=== PATIENT | male | born 1945 | race Caucasian/White ===

== ENCOUNTER 2016-04-07 21:30 | Outpatient (CLI) | payer MEDICARE | END 2016-04-07 21:31 | disposition home or self-care (01) | DX: I48.91 Unspecified atrial fibrillation (principal); E11.9 Type 2 diabetes mellitus without complications; R53.83 Other fatigue; E66.01 Morbid (severe) obesity due to excess calories ==

== ENCOUNTER 2016-05-10 13:15 | Outpatient (CLI) | payer MEDICARE | END 2016-05-10 13:16 | disposition home or self-care (01) | DX: I51.7 Cardiomegaly (principal); R09.89 Other specified symptoms and signs involving the circulatory and respiratory systems; Z95.0 Presence of cardiac pacemaker ==

== ENCOUNTER 2016-05-12 12:52 | Emergency (ER) | payer MEDICARE ==
[2016-05-12] MEDS ORDERED: FUROSEMIDE 100 MG/10 ML VIAL IVP STA (13:40)
[2016-05-12] MEDS ORDERED: NITROGLYCERIN 2% PASTE TOP STA (13:40)
[2016-05-12] MEDS ORDERED: FUROSEMIDE 40 MG/4 ML VIAL ONE (13:46)
[2016-05-12] MEDS ORDERED: NITROGLYCERIN 2% PASTE TOP ONE ×2 (13:46→14:08)
[2016-05-12] MEDS ORDERED: AZITHROMYCIN 250 MG TABLET PO STA (17:19)
[2016-05-12] MEDS ORDERED: AZITHROMYCIN 250 MG TABLET PO ONE (17:22)
== END 2016-05-12 17:54 | disposition home or self-care (01) ==
DX: I50.43 Acute on chronic combined systolic (congestive) and diastolic (congestive) heart failure (principal); J18.9 Pneumonia, unspecified organism; I48.91 Unspecified atrial fibrillation; Z79.01 Long term (current) use of anticoagulants; E11.9 Type 2 diabetes mellitus without complications; Z87.891 Personal history of nicotine dependence
CPT/HCPCS: 36415; 71010; 80053; 83690; 83880; 84484; 85025; 85610; 93005; 93010; 96374; 99284; 99285; A9270

== ENCOUNTER 2016-05-14 12:55 | Outpatient (CLI) | payer MEDICARE | END 2016-05-14 12:56 | disposition home or self-care (01) | DX: I48.91 Unspecified atrial fibrillation (principal) ==

== ENCOUNTER 2016-06-04 06:29 | Outpatient (CLI) | payer MEDICARE | END 2016-06-04 06:30 | disposition short-term general hospital (02) | DX: M54.9 Dorsalgia, unspecified (principal); R41.0 Disorientation, unspecified | CPT/HCPCS: A0425; A0427 ==

== ENCOUNTER 2016-12-15 20:38 | Emergency (ER) | payer MEDICARE ==
[2016-12-15 20:46] VITALS: BP 138/86
[2016-12-15] MEDS ORDERED: DEXAMETHASONE 10 MG/ML VIAL ONE (22:29)
[2016-12-15] MEDS ORDERED: CYCLOBENZAPRINE 10 MG TABLET PO ONE (22:29)
[2016-12-15] MEDS: CYCLOBENZAPRINE 10 MG TABLET PO STA (22:35)
[2016-12-15] MEDS: DEXAMETHASONE 10 MG/ML VIAL PO STA (22:36)
--- NOTE | 2016-12-15 23:02 | CT Preliminary Report ---
Exam: CT Abdomen/Pelvis W/O IMPRESSION: 1. No urinary tract stones or obstruction. 2. Fatty liver. 3. Diverticulosis. [facility] SITE ID: [id number]
--- NOTE | 2016-12-15 23:04 | CT Report ---
EXAM: CT ABDOMEN AND PELVIS (CT KUB) EXAM DATE: 12/15/2016 10:37 PM. CLINICAL HISTORY: Right flank pain. COMPARISONS: None. TECHNIQUE: Routine axial helical CT imaging was performed through the abdomen and pelvis without IV c ontrast. Reconstructions: Coronal and sagittal. In accordance with CT protocol optimization, one or more of the following dose reduction techniques w ere utilized for this exam: automated exposure control, adjustment of mA and/or KV based on patient s ize, or use of iterative reconstructive technique. FINDINGS: Lung Bases: Unremarkable. Right Kidney/Ureter: No stones, hydronephrosis, or hydroureter. No perinephric fat stranding. Left Kidney/Ureter: No stones, hydronephrosis, or hydroureter. No perinephric fat stranding. Other Solid Organs: Decreased liver attenuation. No obvious focal lesions allowing for limitations of noncontrast technique. The unenhanced pancreas, spleen and adrenal glands are unremarkable. Gallbladder/Bile Ducts: Unremarkable. Peritoneal Cavity: Diverticulosis. No diverticulitis. No bowel obstruction, free air or fluid collect ions. Pelvic Organs: Enlarged prostate gland. No bladder stones seen. Vasculature: Unremarkable. Other: None. IMPRESSION: 1. No urinary tract stones or obstruction. 2. Fatty liver. 3. Diverticulosis. [facility] Referring Provider Line: [phone] SITE ID: [id number]
[2016-12-15 23:05] LABS: BASOPHILS # (AUTO) 0.3 10^3/uL (0.0-0.1); BASOPHILS % (AUTO) 2.1 %; EOSINOPHILS # (AUTO) 0.2 10^3/uL (0.0-0.7); EOSINOPHILS % (AUTO) 1.7 %; HCT - HEMATOCRIT 44.3 % (42.0-52.0); HGB - HEMOGLOBIN 14.7 g/dL (14.0-18.0); LYMPHOCYTES # (AUTO) 2.7 10^3/uL (1.5-3.5); LYMPHOCYTES % (AUTO) 21.5 %; MEAN CORPUSCULAR HEMOGLOBIN 28.6 pg (27.0-31.0); MEAN CORPUSCULAR HGB CONC 33.2 g/dL (32.0-36.0); MEAN PLATELET VOLUME 9.9 fL (7.4-11.4); MONOCYTES # (AUTO) 1.2 10^3/uL (0.0-1.0); MONOCYTES % (AUTO) 9.8 %; NEUTROPHILS # (AUTO) 8.1 10^3/uL (1.5-6.6); NEUTROPHILS % (AUTO) 64.9 %; NUCLEATED RED BLOOD CELLS AUTO 0.1 /100WBC; RED BLOOD COUNT 5.15 10^6/uL (4.70-6.10); RED CELL DISTRIBUTION WIDTH 15.5 % (12.0-15.0); UNCORRECTED WHITE BLOOD COUNT 12.5 x10^3/uL; WHITE BLOOD COUNT 12.5 x10^3/uL (4.8-10.8)
[2016-12-15 23:05] LABS: BILIRUBIN,URINE NEGATIVE (NEGATIVE)
[2016-12-15 23:07] LABS: ALBUMIN/GLOBULIN RATIO 1.1 (1.0-2.2); BILIRUBIN,TOTAL 0.9 mg/dL (0.2-1.0); CALCIUM 9.6 mg/dL (8.5-10.3); POTASSIUM 3.7 mmol/L (3.5-5.0); TOTAL PROTEIN 7.6 g/dL (6.7-8.2)
[2016-12-15 23:07] LABS: UA CHARGE (STRIP ONLY) YES; UR CULTURE IF IND NOT INDICATED
--- NOTE | 2016-12-15 23:41 | ED Physician Documentation ---
PD HPI BACK PAIN - Stated complaint Stated Complaint: BACK PX - Chief complaint Chief Complaint: Back Pain - History obtained from History obtained from: Patient, Family - History of Present Illness Timing - onset: Chronic Timing - details: Gradual onset, Still present Location: Mid, Right Quality: Pain, Spasm Associated symptoms: No: Fever, Weakness, Numbness, Incontinent of urine, Unable to urinate Worsened by: Movement, Palpation Similar symptoms before: Work up / diagnostics, Treatment Recently seen: Clinic - Additional information Additional information: Patient is a 71 year old male with a history of chronic back pain and uncontrolled diabetes who is presenting to the emergency department for worsening back pain. Patient states that he has been developing pain in the right lateral side of his back for the last few days. 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 Patient saw his pmd today who stated there was nothing they could do. Patient denies nausea, vomiting, fevers, chills or neurological dysfunction. Review of Systems Constitutional: denies: Fever, Chills, Myalgias Eyes: denies: Decreased vision Ears: denies: Ear pain, Drainage/discharge Nose: denies: Rhinorrhea / runny nose, Congestion Throat: denies: Sore throat Cardiac: denies: Chest pain / pressure Respiratory: denies: Dyspnea, Cough, Wheezing GI: denies: Abdominal Pain, Nausea, Vomiting : denies: Dysuria, Frequency, Unable to Void, Incontinent, Hematuria Skin: denies: Rash, Lesions, Abrasion (s) Musculoskeletal: reports: Back pain, Extremity pain Neurologic: denies: Generalized weakness, Focal weakness, Numbness Immunocompromised: denies: Immunocompromised PD PAST MEDICAL HISTORY - Past Medical History Cardiovascular: Congestive heart failure, High cholesterol, Atrial flutter, Atrial fibrillation Respiratory: COPD, Pneumonia, Sleep apnea Neuro: Peripheral neuropathy Endocrine/Autoimmune: Type 2 diabetes GI: GERD : Benign prostate hypertrophy Musculoskeletal: Chronic back pain, Other Derm: Other - Past Surgical History Past Surgical History: Yes Ortho: Knee replacement Cardiovascular: Pacemaker - Present Medications Home Medications: Ambulatory Orders Medication Instructions Recorded Confirmed Alprazolam [Xanax] 1 mg PO QPM PRN 05/29/14 10/25/16 Fluticasone [Flonase] 2 sprays SANTHOSH DAILY 05/29/14 10/25/16 Fluticasone/Salmeterol [Advair 1 puffs IH BID 05/29/14 10/25/16 250-50 Diskus] Furosemide [Lasix] 40 mg PO ONCE 05/29/14 10/25/16 Ipratropium/Albuterol [Duoneb] 3 ml INH Q4H PRN 05/29/14 10/25/16 Pantoprazole Sodium [Protonix] 40 mg PO DAILY PM 05/29/14 10/25/16 Polyethylene Glycol 3350 [Miralax] 17 gm PO DAILY PRN 05/29/14 10/25/16 Potassium Chloride [K-Dur] 20 meq PO ONCE 05/29/14 10/25/16 Pramipexole Di-HCl [Mirapex] 1.5 mg PO DAILY 05/29/14 10/25/16 Tamsulosin [Flomax] 0.4 mg PO DAILY 06/22/14 10/25/16 Hydroxyzine Pamoate 50 mg PO DAILY 05/12/16 10/25/16 Morphine Sulfate [Morphine Sulfate 30 mg PO BID 05/12/16 10/25/16 ER] Triamcinolone 0.1% Cream [Kenalog 15 gm TOP DAILY 05/12/16 10/25/16 0.1% Cream] Albuterol Sulf [Ventolin Hfa 2 puffs INH Q4HR PRN 10/25/16 10/25/16 Inhaler] Baclofen 10 mg PO TID PRN 10/25/16 10/25/16 Canagliflozin [Invokana] 300 mg PO DAILY 10/25/16 10/25/16 Cetirizine [ZyrTEC] 10 mg PO DAILY 10/25/16 10/25/16 Docusate Sodium [Docusate Sodium] 100 mg PO DAILY 10/25/16 10/25/16 Famotidine [Pepcid AC] 20 mg PO DAILY 10/25/16 10/25/16 Furosemide [Lasix] 80 mg PO ONCE 10/25/16 10/25/16 Losartan [Cozaar] 25 mg PO DAILY 10/25/16 10/25/16 Morphine Sulfate [Morphine Sulfate 20 mg PO DAILY 10/25/16 10/25/16 ER] Multivitamin W/Minerals [Theragran 1 cap PO BID 10/25/16 10/25/16 M] Oxymetazoline HCl [Afrin] 1 spray NS DAILY 10/25/16 10/25/16 Potassium Chloride 40 meq PO ONCE 10/25/16 10/25/16 Rivaroxaban [Xarelto] 20 mg PO DAILY 10/25/16 10/25/16 Tolterodine [Detrol LA] 2 mg PO DAILY 10/25/16 10/25/16 metFORMIN [Glucophage] 1,000 mg PO BIDWM 10/25/16 10/25/16 Cyclobenzaprine [Flexeril] 10 mg PO TID PRN #10 tablet 12/15/16 Lidocaine Patch 5% [Lidoderm Patch] 1 each TOP DAILY #10 patch 12/15/16 - Allergies Allergies/Adverse Reactions: Allergies Allergy/AdvReac Type Severity Reaction Status Date / Time Penicillins Allergy Intermediate Hives,itchi Verified 06/24/14 12:19 ng amiodarone Allergy Respiratory Verified 06/22/14 04:36 rofecoxib [From Vioxx] Allergy Unknown Verified 06/22/14 04:36 cephalexin monohydrate * AdvReac Intermediate Itching Verified 06/24/14 12:19 [From Keflex] animal dander Allergy Unknown Uncoded 06/22/14 04:36 pollen Allergy Unknown Uncoded 06/22/14 04:36 - Social History Does the pt smoke?: No Smoking Status: Never smoker Does the pt drink ETOH?: No Does the pt have substance abuse?: No - Immunizations Immunizations are current?: Yes - POLST Patient has POLST: No PD ED PE NORMAL - Vitals Vital signs reviewed: Yes - General General: Alert and oriented X 3, No acute distress - HEENT HEENT: Atraumatic, PERRL - Neck Neck: Supple, no meningeal sign, No bony TTP - Cardiac Cardiac: RRR, No murmur - Respiratory Respiratory: No respiratory distress, Clear bilaterally - Derm Derm: Normal color, No rash - Extremities Extremities: No deformity, No tenderness to palpate, Normal ROM s pain - Neuro Neuro: Alert and oriented X 3, 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 No: Vertebral tenderness Results - Vitals Vitals: Vital Signs - 24 hr 12/15/16 20:44 Temperature 36.0 C L Heart Rate 88 Respiratory 20 Rate Blood Pressure 138/86 H O2 Saturation 96 Oxygen O2 Source [With Activity] Room air O2 Source Room air - Labs Labs: Laboratory Tests 12/15/16 12/15/16 12/15/16 22:00 22:44 22:44 WBC 12.5 H RBC 5.15 Hgb 14.7 Hct 44.3 MCV 86.0 MCH 28.6 MCHC 33.2 RDW 15.5 H Plt Count 152 MPV 9.9 Neut # 8.1 H Lymph # 2.7 [place] # 1.2 H Eos # 0.2 Baso # 0.3 H Absolute Nucleated RBC 0.01 Nucleated RBC % 0.1 Sodium 137 Potassium 3.7 Chloride 97 L Carbon Dioxide 28 Anion Gap 12.0 BUN 25 H Creatinine 1.0 Estimated GFR (MDRD) 74 L Glucose 101 H Calcium 9.6 Total Bilirubin 0.9 AST 32 ALT 48 Alkaline Phosphatase 70 Total Protein 7.6 Albumin 4.0 Globulin 3.6 Albumin/Globulin Ratio 1.1 Lipase 16 L Urine Color YELLOW Urine Clarity CLEAR Urine pH 6.0 Ur Specific [place] 1.015 Urine Protein NEGATIVE Urine Glucose (UA) >=1000 H Urine Ketones NEGATIVE Urine Occult Blood TRACE-LYSE Urine Nitrite NEGATIVE Urine Bilirubin NEGATIVE Urine Urobilinogen 0.2 (NORMAL) Ur Leukocyte Esterase NEGATIVE Ur Microscopic Review NOT INDICATED Urine Culture Comments NOT INDICATED - Rads (name of study) ct abdomen and pelvis Radiology: Final report received (no renal stones, or other acute abnormality) PD MEDICAL DECISION MAKING - ED course Complexity details: reviewed old records, reviewed results, re-evaluated patient , considered differential, d/w patient, d/w family ED course: Patient was seen and examined at bedside. patient showed no signs of neurological deficit. labs were collected and imaging was ordered. urine was collected. Patient was treated with a lidoderm patch and a flexeril. patient took his own pain medication. when patient's diagnostics came back they were all within normal limits. patient required no further work up and was stable for discharge with outpatient follow up. Departure - Departure Disposition: 01 Home, Self Care Clinical Impression: Back pain, Muscle spasm of back Condition: Good Instructions: ED Chronic Pain Management Follow-Up: Ajay Valles MD [Primary Care Provider] - Within 1 week Prescriptions: Cyclobenzaprine [Flexeril] 10 mg PO TID PRN #10 tablet PRN Reason: Spasms Lidocaine Patch 5% [Lidoderm Patch] 1 each TOP DAILY #10 patch Comments: Your diagnostics today were within normal limits. there is no sign of infection or renal stone. your pain is likely due to muscle spasms from immobility. You can use the lidoderm patches, but if you develop a rash you should discontinue use. you can continue with your current pain management and take flexeril for spams. you should follow up with your pmd if your symptoms persist. you may return to the emergency department at any time if needed for new, worsening or uncontrollable symptoms.
[2016-12-16] MEDS ORDERED: LIDOCAINE PATCH 5% TOP ONE (00:51)
== END 2016-12-16 00:24 | disposition home or self-care (01) ==
LOC: ED 20:38
DX: M54.9 Dorsalgia, unspecified (principal); M62.830 Muscle spasm of back; E11.42 Type 2 diabetes mellitus with diabetic polyneuropathy; I50.9 Heart failure, unspecified; E78.00 Pure hypercholesterolemia, unspecified; Z95.0 Presence of cardiac pacemaker; Z96.659 Presence of unspecified artificial knee joint
CPT/HCPCS: 36415; 74176; 80053; 81001; 81003; 83690; 85025; 87086; 99283

== ENCOUNTER 2017-09-14 19:50 | Emergency (ER) | payer MEDICARE ==
--- NOTE | 2017-09-14 20:16 | ED Physician Documentation ---
PD HPI ALTERED MENTAL STATUS - Stated complaint Stated Complaint: AMS/GLF - Chief complaint Chief Complaint: Neuro - History obtained from History obtained from: Patient, Family - History of Present Illness Timing - onset: Yesterday Timing - details: Gradual onset Quality / character: Confused Associated symptoms: Urinary sx (intermittent urinary incontinence (past few weeks)). No: Fever, Dyspnea, Cough, NVD, General weakness, Focal weakness Contributing factors: Anticoagulated Basline status: Alert and oriented X 3, Ambulatory Similar symptoms before: Other (see below) Recently seen: Not recently seen - Additional information Additional information: patient's spouse has noted increasing confusion x 24 hours. She notes that he had similar confusion a few years ago as a result of sepsis, which was a complication of leg cellulitis. Patient is anticoagulated. Spouse reports that patient fell this morning, although no apparent injury and patient's symptoms were already present before he fell. Patient is somnolent on exam, awakens to voice but briefly and cannot contribute to HPI/ROS due to AMS. Review of Systems Unable to obtain: Other (limited ROS due to AMS ( provides information noted below)) Constitutional: denies: Fever Respiratory: denies: Dyspnea, Cough GI: denies: Vomiting, Diarrhea : reports: Incontinent Neurologic: reports: Altered mental status PD PAST MEDICAL HISTORY - Past Medical History Cardiovascular: Congestive heart failure, High cholesterol, Atrial flutter, Atrial fibrillation Respiratory: COPD, Pneumonia, Sleep apnea Endocrine/Autoimmune: Type 2 diabetes GI: GERD : Benign prostate hypertrophy Musculoskeletal: Chronic back pain, Other Derm: Other - Past Surgical History Past Surgical History: Yes Ortho: Knee replacement Cardiovascular: Pacemaker - Present Medications Home Medications: Ambulatory Orders Medication Instructions Recorded Confirmed Fluticasone [Flonase] 2 sprays SANTHOSH DAILY 05/29/14 09/14/17 Fluticasone/Salmeterol [Advair 1 puffs IH BID 05/29/14 09/14/17 250-50 Diskus] Furosemide [Lasix] 40 mg PO ONCE 05/29/14 09/14/17 Ipratropium/Albuterol [Duoneb] 3 ml INH Q4H PRN 05/29/14 09/14/17 Pantoprazole Sodium [Protonix] 40 mg PO DAILY PM 05/29/14 09/14/17 Potassium Chloride [K-Dur] 20 meq PO DAILY 05/29/14 09/14/17 Pramipexole Di-HCl [Mirapex] 1.5 mg PO DAILY 05/29/14 09/14/17 Tamsulosin [Flomax] 0.4 mg PO DAILY 06/22/14 09/14/17 Morphine Sulfate [Morphine Sulfate 30 mg PO TID 05/12/16 09/14/17 ER] Triamcinolone 0.1% Cream [Kenalog 15 gm TOP DAILY 05/12/16 09/14/17 0.1% Cream] hydrOXYzine pamoate [Hydroxyzine 50 mg PO DAILY 05/12/16 09/14/17 Pamoate] Albuterol Sulf [Ventolin Hfa 2 puffs INH Q4HR PRN 10/25/16 09/14/17 Inhaler] Losartan [Cozaar] 25 mg PO DAILY 10/25/16 09/14/17 Oxymetazoline HCl [Afrin] 1 spray NS DAILY 10/25/16 09/14/17 Rivaroxaban [Xarelto] 20 mg PO DAILY 10/25/16 09/14/17 Tolterodine [Detrol LA] 4 mg PO DAILY 10/25/16 09/14/17 metFORMIN [Glucophage] 1,000 mg PO BIDWM 10/25/16 09/14/17 Cyclobenzaprine [Flexeril] 5 mg PO TID PRN 07/22/17 09/14/17 Polyethylene Glycol 3350 [Miralax] 5.6 g PO DAILY 09/14/17 09/14/17 Pravastatin [Pravachol] 1 tab PO DAILY 09/14/17 09/14/17 - Allergies Allergies/Adverse Reactions: Allergies Allergy/AdvReac Type Severity Reaction Status Date / Time Penicillins Allergy Intermediate Hives,itchi Verified 09/14/17 20:00 ng amiodarone Allergy Respiratory Verified 09/14/17 20:00 rofecoxib [From Vioxx] Allergy Unknown Verified 09/14/17 20:00 cephalexin monohydrate * AdvReac Intermediate Itching Verified 09/14/17 20:00 [From Keflex] animal dander Allergy Unknown Uncoded 09/14/17 20:00 pollen Allergy Unknown Uncoded 09/14/17 20:00 - Social History Does the pt smoke?: No Smoking Status: Never smoker Does the pt drink ETOH?: No Does the pt have substance abuse?: No - Immunizations Immunizations are current?: Yes - POLST Patient has POLST: No PD ED PE NORMAL - Vitals Vital signs reviewed: Yes - General General: No acute distress, Well developed/nourished, Other (drowsy, arousable to voice, provides some answers to questions but falls asleep easily. follows commands with repeated prompting) - HEENT HEENT: PERRL, EOMI, Moist mucous membranes - Neck Neck: Supple, no meningeal sign - Cardiac Cardiac: No murmur - Respiratory Respiratory: No respiratory distress, Clear bilaterally - Abdomen Abdomen: Soft, Non tender, Non distended - Derm Derm: Normal color, Warm and dry, No rash - Extremities Extremities: No edema - Neuro Eye Opening: To Voice Motor: Obeys Commands Verbal: Confused GCS Score: 13 PD ED PE EXPANDED - Cardiac Cardiac: Irregularly irregular Results - Vitals Vitals: Oxygen O2 Source [] Room air O2 Source Room air - EKG (time done) No standard instances Rate: Rate (enter#) (76) Rhythm: Atrial fibrillation [place]: LAD Intervals: LBBB Ischemia: Normal ST segments, Q waves (III, aVF, V1-V3) Compare to prior EKG: Unchanged from prior EKG (05/12/16) - Labs Labs: Laboratory Tests 09/14/17 09/14/17 09/14/17 20:10 20:10 20:12 WBC RBC Hgb Hct MCV MCH MCHC RDW Plt Count MPV Neut # (Auto) Lymph # (Auto) [place] # (Auto) Eos # (Auto) Baso # (Auto) Absolute Nucleated RBC Nucleated RBC % Sodium Potassium Chloride Carbon Dioxide Anion Gap BUN Creatinine Estimated GFR (MDRD) Glucose POC Whole Bld Glucose 115 H Lactic Acid Calcium Total Bilirubin AST ALT Alkaline Phosphatase B-Natriuretic Peptide Total Protein Albumin Globulin Albumin/Globulin Ratio Lipase Urine Color YELLOW Urine Clarity CLEAR Urine pH 6.0 Ur Specific [place] 1.010 Urine Protein NEGATIVE Urine Glucose (UA) NEGATIVE Urine Ketones NEGATIVE Urine Occult Blood NEGATIVE Urine Nitrite NEGATIVE Urine Bilirubin NEGATIVE Urine Urobilinogen 0.2 (NORMAL) Ur Leukocyte Esterase NEGATIVE Ur Microscopic Review NOT INDICATED Urine Culture Comments NOT INDICATED Urine Opiates Screen POSITIVE H Ur Oxycodone Screen POSITIVE H Urine Methadone Screen NEGATIVE Ur Propoxyphene Screen NEGATIVE Ur Barbiturates Screen NEGATIVE Ur Tricyclics Screen POSITIVE H Ur Phencyclidine Scrn NEGATIVE Ur Amphetamine Screen NEGATIVE U Methamphetamines Scrn NEGATIVE U Benzodiazepines Scrn POSITIVE H Urine Cocaine Screen NEGATIVE U Cannabinoids Screen NEGATIVE 09/14/17 09/14/17 09/14/17 20:20 20:20 20:20 WBC 12.4 H RBC 4.85 Hgb 13.9 L Hct 42.2 MCV 87.0 MCH 28.6 MCHC 32.9 RDW 15.2 H Plt Count 159 MPV 9.3 Neut # (Auto) 9.4 H Lymph # (Auto) 1.5 [place] # (Auto) 1.0 Eos # (Auto) 0.3 Baso # (Auto) 0.1 Absolute Nucleated RBC 0.01 Nucleated RBC % 0.1 Sodium 137 Potassium 4.3 Chloride 100 L Carbon Dioxide 31 Anion Gap 6.0 BUN 22 H Creatinine 0.9 Estimated GFR (MDRD) 83 L Glucose 131 H POC Whole Bld Glucose Lactic Acid Calcium 9.4 Total Bilirubin 0.8 AST 27 ALT 31 Alkaline Phosphatase 79 B-Natriuretic Peptide 73 Total Protein 7.4 Albumin 3.6 Globulin 3.8 Albumin/Globulin Ratio 0.9 L Lipase 16 L Urine Color Urine Clarity Urine pH Ur Specific [place] Urine Protein Urine Glucose (UA) Urine Ketones Urine Occult Blood Urine Nitrite Urine Bilirubin Urine Urobilinogen Ur Leukocyte Esterase Ur Microscopic Review Urine Culture Comments Urine Opiates Screen Ur Oxycodone Screen Urine Methadone Screen Ur Propoxyphene Screen Ur Barbiturates Screen Ur Tricyclics Screen Ur Phencyclidine Scrn Ur Amphetamine Screen U Methamphetamines Scrn U Benzodiazepines Scrn Urine Cocaine Screen U Cannabinoids Screen 09/14/17 20:48 WBC RBC Hgb Hct MCV MCH MCHC RDW Plt Count MPV Neut # (Auto) Lymph # (Auto) [place] # (Auto) Eos # (Auto) Baso # (Auto) Absolute Nucleated RBC Nucleated RBC % Sodium Potassium Chloride Carbon Dioxide Anion Gap BUN Creatinine Estimated GFR (MDRD) Glucose POC Whole Bld Glucose Lactic Acid 2.0 Calcium Total Bilirubin AST ALT Alkaline Phosphatase B-Natriuretic Peptide Total Protein Albumin Globulin Albumin/Globulin Ratio Lipase Urine Color Urine Clarity Urine pH Ur Specific [place] Urine Protein Urine Glucose (UA) Urine Ketones Urine Occult Blood Urine Nitrite Urine Bilirubin Urine Urobilinogen Ur Leukocyte Esterase Ur Microscopic Review Urine Culture Comments Urine Opiates Screen Ur Oxycodone Screen Urine Methadone Screen Ur Propoxyphene Screen Ur Barbiturates Screen Ur Tricyclics Screen Ur Phencyclidine Scrn Ur Amphetamine Screen U Methamphetamines Scrn U Benzodiazepines Scrn Urine Cocaine Screen U Cannabinoids Screen - Rads (name of study) CTH Radiology: Prelim report reviewed, See rad report chest xray Radiology: Prelim report reviewed, See rad report PD MEDICAL DECISION MAKING - ED course Complexity details: reviewed old records, reviewed results, re-evaluated patient , considered differential, d/w patient, d/w family ED course: during ED stay, patient became increasingly awake, alert, and oriented. On reevaluation, after tests resulted, he is awake, alert, oriented x 3. He has no c/o and says he feels well. No focal neurologic deficits noted during ED stay, and tests (including blood tests, CTH, chest xray, and EKG) are reassuring (no new findings nor findings that would explain AMS). - Sepsis Event Vital Signs: Oxygen O2 Source [] Room air O2 Source Room air Departure - Departure Disposition: 01 Home, Self Care Clinical Impression: Altered mental status Qualifiers: Altered mental status type: unspecified Qualified Code(s): R41.82 - Altered mental status, unspecified Condition: Good Instructions: ED Altered Loc Follow-Up: Ajay Valles MD [Primary Care Provider] - Discharge Date/Time: 09/14/17 23:52
[2017-09-14 20:21] LABS: GLUCOSE, URINE (UA) NEGATIVE (NEGATIVE); KETONES,URINE (UA) NEGATIVE (NEGATIVE); LEUKOCYTE ESTERASE, URINE NEGATIVE (NEGATIVE); NITRITE,URINE NEGATIVE (NEGATIVE); OCCULT BLOOD,URINE NEGATIVE (NEGATIVE); PROTEIN,URINE NEGATIVE (NEGATIVE); UROBILINOGEN,URINE 0.2 (NORMAL) E.U./dL (NORMAL)
[2017-09-14 20:25] LABS: BILIRUBIN,URINE NEGATIVE (NEGATIVE); CLARITY,URINE CLEAR (CLEAR); ICTOTEST,URINE NEGATIVE
[2017-09-14 20:40] LABS: BASOPHILS # (AUTO) 0.1 10^3/uL (0.0-0.1); BASOPHILS % (AUTO) 0.6 %; EOSINOPHILS # (AUTO) 0.3 10^3/uL (0.0-0.7); EOSINOPHILS % (AUTO) 2.8 %; HGB - HEMOGLOBIN 13.9 g/dL (14.0-18.0); LYMPHOCYTES # (AUTO) 1.5 10^3/uL (1.5-3.5); LYMPHOCYTES % (AUTO) 12.1 %; MEAN CORPUSCULAR HEMOGLOBIN 28.6 pg (27.0-31.0); MEAN CORPUSCULAR HGB CONC 32.9 g/dL (32.0-36.0); MEAN PLATELET VOLUME 9.3 fL (7.4-11.4); MONOCYTES % (AUTO) 8.2 %; NEUTROPHILS # (AUTO) 9.4 10^3/uL (1.5-6.6); NEUTROPHILS % (AUTO) 76.3 %; PLT - PLATELET COUNT 159 10^3/uL (130-450); RED BLOOD COUNT 4.85 10^6/uL (4.70-6.10); RED CELL DISTRIBUTION WIDTH 15.2 % (12.0-15.0); WHITE BLOOD COUNT 12.4 x10^3/uL (4.8-10.8)
[2017-09-14 20:51] LABS: ALBUMIN 3.6 g/dL (3.2-5.5); ALBUMIN/GLOBULIN RATIO 0.9 (1.0-2.2); BILIRUBIN,TOTAL 0.8 mg/dL (0.2-1.0); CALCIUM 9.4 mg/dL (8.5-10.3); CREATININE 0.9 mg/dL (0.6-1.2); TOTAL PROTEIN 7.4 g/dL (6.7-8.2)
[2017-09-14 20:55] LABS: MUDS CUTOFF CONCENTRATIONS CUTOFF CONC BELOW:
[2017-09-14 21:05] LABS: AMPHETAMINE SCREEN,URINE NEGATIVE (NEGATIVE); BENZODIAZEPINES SCREEN, URINE POSITIVE (NEGATIVE); COCAINE SCREEN URINE NEGATIVE (NEGATIVE); METHADONE SCREEN, URINE NEGATIVE (NEGATIVE); METHAMPHETAMINES SCREEN, URINE NEGATIVE (NEGATIVE); OPIATE SCREEN, URINE POSITIVE (NEGATIVE); OXYCODONE SCREEN, URINE POSITIVE (NEGATIVE); PROPOXYPHENE SCREEN, URINE NEGATIVE (NEGATIVE); TRICYCLIC ANTIDEPRESSANT,URINE POSITIVE (NEGATIVE)
--- NOTE | 2017-09-14 21:33 | CT Report ---
Procedure Date: 09/14/2017 Accession Number: [id number] / [id number] Procedure: CT - Head W/O CPT Code: FULL RESULT: EXAM: CT HEAD EXAM DATE: 09/14/2017 09:07 PM. CLINICAL HISTORY: AMS, recent fall, on anticoagulant. COMPARISON: HEAD W/O 05/29/2014. TECHNIQUE: Multiaxial CT images were obtained from the foramen magnum to the vertex. Reformats: Coronal. IV contrast: None. In accordance with CT protocol optimization, one or more of the following dose reduction techniques were utilized for this exam: automated exposure control, adjustment of mA and/or KV based on patient size, or use of iterative reconstructive technique. FINDINGS: Parenchyma: No intraparenchymal hemorrhage. No evidence of mass, midline shift, or CT findings of infarction. Golden-white differentiation is distinct. Prominent ventricles, sulci and cisterns. Extraaxial Spaces: Normal for age. No subdural or epidural collections identified. Ventricles: Somewhat prominent, otherwise unremarkable. Sinuses and Orbits: Imaged paranasal sinuses, orbits, and mastoids show no significant abnormality. Bones: No evidence of fracture or calvarial defect. Other: None. IMPRESSION: 1. Prominent ventricles, sulci and cisterns. No bleeding. No fractures. [facility]
--- NOTE | 2017-09-14 22:01 | XRAY Report ---
Procedure Date: 09/14/2017 Accession Number: [id number] / [id number] Procedure: XR - Chest 2 View X-Ray CPT Code: 45021 FULL RESULT: EXAM: CHEST RADIOGRAPHY EXAM DATE: 09/14/2017 09:09 PM. CLINICAL HISTORY: AMS, hypoxia. COMPARISON: CHEST 2 VIEW PA/LAT 05/30/2014. TECHNIQUE: 2 views. FINDINGS: Lungs/Pleura: Minimal increased density in both lung bases. Similar to previous. Mediastinum: Cardiomegaly. Other: None. IMPRESSION: Cardiomegaly, some increased density in both lung bases which is similar to previous. [facility]
[2017-09-14 22:24] VITALS: BP 124/84
== END 2017-09-14 23:52 | disposition home or self-care (01) ==
LOC: ED 19:50
DX: R41.82 Altered mental status, unspecified (principal); E78.00 Pure hypercholesterolemia, unspecified; E11.9 Type 2 diabetes mellitus without complications; I44.7 Left bundle-branch block, unspecified; I48.91 Unspecified atrial fibrillation; Z79.01 Long term (current) use of anticoagulants; Z95.0 Presence of cardiac pacemaker; Z91.81 History of falling
CPT/HCPCS: 36415; 70450; 71046; 80053; 80306; 81001; 81003; 83605; 83690; 83880; 85025; 87086; 93005; 99283; 99284

== ENCOUNTER 2017-10-06 23:05 | Inpatient (IN) | payer MEDICARE ==
[2017-10-06] MEDS ORDERED: VANCOMYCIN INJ 2 GM in SODIUM CHLORIDE 0.9% 500 ML IV STA (23:36)
[2017-10-06] MEDS ORDERED: CIPROFLOXACIN 400 MG/200 ML 200 ML IV ONE (23:38)
[2017-10-06 23:58] LABS: BASOPHILS # (AUTO) 0.1 10^3/uL (0.0-0.1); EOSINOPHILS # (AUTO) 0.4 10^3/uL (0.0-0.7); EOSINOPHILS % (AUTO) 4.4 %; HGB - HEMOGLOBIN 13.2 g/dL (14.0-18.0); LYMPHOCYTES # (AUTO) 2.2 10^3/uL (1.5-3.5); LYMPHOCYTES % (AUTO) 24.4 %; MEAN CORPUSCULAR HEMOGLOBIN 28.5 pg (27.0-31.0); MEAN CORPUSCULAR HGB CONC 32.7 g/dL (32.0-36.0); MEAN CORPUSCULAR VOLUME 87.3 fL (80.0-94.0); MEAN PLATELET VOLUME 9.3 fL (7.4-11.4); MONOCYTES # (AUTO) 0.9 10^3/uL (0.0-1.0); MONOCYTES % (AUTO) 10.1 %; NEUTROPHILS # (AUTO) 5.4 10^3/uL (1.5-6.6); NEUTROPHILS % (AUTO) 60.1 %; PLT - PLATELET COUNT 142 10^3/uL (130-450); RED BLOOD COUNT 4.62 10^6/uL (4.70-6.10); RED CELL DISTRIBUTION WIDTH 15.3 % (12.0-15.0)
[2017-10-07 00:16] LABS: ALBUMIN 3.4 g/dL (3.2-5.5); ALBUMIN/GLOBULIN RATIO 0.9 (1.0-2.2); BILIRUBIN,TOTAL 0.8 mg/dL (0.2-1.0); CALCIUM 9.4 mg/dL (8.5-10.3); CREATININE 0.9 mg/dL (0.6-1.2); CRP - C-REACTIVE PROTEIN 1.8 mg/dL (0-1.0); TOTAL PROTEIN 7.2 g/dL (6.7-8.2)
--- NOTE | 2017-10-07 00:22 | ED Physician Documentation ---
History of Present Illness - Stated complaint Stated Complaint: LOWER LT LEG BLISTERS - Chief complaint Chief Complaint: Wound - History obtained from History obtained from: Patient, Family () - History of Present Illness Timing: How many weeks ago (1) Pain level max: 4 Pain level now: 4 Improved by: nothing Worsened by: palpation - Additonal information Additional information: Patient is a 72-year-old male who presents to the emergency department complaining of left lower extremity redness and swelling for the past several days. He states that he fell a week or so ago and was having subcutaneous bleeding in the leg. Now it has turned red and hot. Has had recurrent cellulitis in this leg before and has a history of septic shock from cellulitis in this same leg. Also has a left total knee replacement. Denies any fevers at this time. Has not been on antibiotics. He is a diabetic. Review of Systems Ten Systems: 10 systems reviewed and negative Constitutional: denies: Fever, Chills Ears: denies: Ear pain Nose: denies: Rhinorrhea / runny nose, Congestion Throat: denies: Sore throat Cardiac: denies: Chest pain / pressure Respiratory: denies: Cough, Wheezing GI: denies: Nausea, Vomiting, Diarrhea Skin: denies: Rash Musculoskeletal: denies: Neck pain, Back pain Neurologic: denies: Focal weakness, Numbness, Confused, Altered mental status, Headache PD PAST MEDICAL HISTORY - Past Medical History Past Medical History: Yes Cardiovascular: Congestive heart failure, High cholesterol, Atrial flutter, Atrial fibrillation Respiratory: COPD, Pneumonia, Sleep apnea Endocrine/Autoimmune: Type 2 diabetes GI: GERD : Benign prostate hypertrophy Musculoskeletal: Chronic back pain, Other Derm: Other - Past Surgical History Past Surgical History: Yes Ortho: Knee replacement Cardiovascular: Pacemaker - Present Medications Home Medications: Ambulatory Orders Medication Instructions Recorded Confirmed Fluticasone [Flonase] 2 sprays SANTHOSH DAILY 05/29/14 09/14/17 Fluticasone/Salmeterol [Advair 1 puffs IH BID 05/29/14 09/14/17 250-50 Diskus] Furosemide [Lasix] 40 mg PO ONCE 05/29/14 09/14/17 Ipratropium/Albuterol [Duoneb] 3 ml INH Q4H PRN 05/29/14 09/14/17 Pantoprazole Sodium [Protonix] 40 mg PO DAILY PM 05/29/14 09/14/17 Potassium Chloride [K-Dur] 20 meq PO DAILY 05/29/14 09/14/17 Pramipexole Di-HCl [Mirapex] 1.5 mg PO DAILY 05/29/14 09/14/17 Tamsulosin [Flomax] 0.4 mg PO DAILY 06/22/14 09/14/17 Morphine Sulfate [Morphine Sulfate 30 mg PO TID 05/12/16 09/14/17 ER] Triamcinolone 0.1% Cream [Kenalog 15 gm TOP DAILY 05/12/16 09/14/17 0.1% Cream] hydrOXYzine pamoate [Hydroxyzine 50 mg PO DAILY 05/12/16 09/14/17 Pamoate] Albuterol Sulf [Ventolin Hfa 2 puffs INH Q4HR PRN 10/25/16 09/14/17 Inhaler] Losartan [Cozaar] 25 mg PO DAILY 10/25/16 09/14/17 Oxymetazoline HCl [Afrin] 1 spray NS DAILY 10/25/16 09/14/17 Rivaroxaban [Xarelto] 20 mg PO DAILY 10/25/16 09/14/17 Tolterodine [Detrol LA] 4 mg PO DAILY 10/25/16 09/14/17 metFORMIN [Glucophage] 1,000 mg PO BIDWM 10/25/16 09/14/17 Cyclobenzaprine [Flexeril] 5 mg PO TID PRN 07/22/17 09/14/17 Polyethylene Glycol 3350 [Miralax] 5.6 g PO DAILY 09/14/17 09/14/17 Pravastatin [Pravachol] 1 tab PO DAILY 09/14/17 09/14/17 - Allergies Allergies/Adverse Reactions: Allergies Allergy/AdvReac Type Severity Reaction Status Date / Time Penicillins Allergy Intermediate Hives,itchi Verified 10/06/17 23:22 ng amiodarone Allergy Respiratory Verified 10/06/17 23:22 latex Allergy Rash Verified 10/06/17 23:39 rofecoxib [From Vioxx] Allergy Unknown Verified 10/06/17 23:22 cephalexin monohydrate * AdvReac Intermediate Itching Verified 10/06/17 23:22 [From Keflex] animal dander Allergy Unknown Uncoded 10/06/17 23:22 pollen Allergy Unknown Uncoded 10/06/17 23:22 - Social History Does the pt smoke?: No Smoking Status: Never smoker Does the pt drink ETOH?: No Does the pt have substance abuse?: No - Immunizations Immunizations are current?: Yes - POLST Patient has POLST: No PD ED PE NORMAL - Vitals Vital signs reviewed: Yes - General General: Alert and oriented X 3, No acute distress - HEENT HEENT: Moist mucous membranes - Neck Neck: Supple, no meningeal sign - Cardiac Cardiac: RRR, Strong equal pulses - Respiratory Respiratory: No respiratory distress, Clear bilaterally - Abdomen Abdomen: Soft, Non tender, Non distended - Derm Derm: Warm and dry - Extremities Extremities: Other (LLE - Diffuse redness, swelling and warmth from the ankle to the tibial tuberosity on the left leg. Neurovascularly intact. Circumferential redness and swelling. No drainage. Also has mild erythema and swelling to the anterior aspect of the left knee. No pain with range of motion. Neurovascularly intact) - Neuro Neuro: Alert and oriented X 3 - Psych Psych: Normal mood, Normal affect Results - Vitals Vitals: Vital Signs - 24 hr 10/06/17 10/07/17 23:10 00:26 Temperature 36.0 C L 36.3 C L Heart Rate 73 94 Respiratory 18 18 Rate Blood Pressure 161/86 H 149/86 H O2 Saturation 96 99 Oxygen O2 Source [With Activity] Room air O2 Source Room air - Labs Labs: Laboratory Tests 10/06/17 10/06/17 10/06/17 23:45 23:45 23:45 WBC 9.0 RBC 4.62 L Hgb 13.2 L Hct 40.3 L MCV 87.3 MCH 28.5 MCHC 32.7 RDW 15.3 H Plt Count 142 MPV 9.3 Neut # (Auto) 5.4 Lymph # (Auto) 2.2 Falls # (Auto) 0.9 Eos # (Auto) 0.4 Baso # (Auto) 0.1 Absolute Nucleated RBC 0.00 Nucleated RBC % 0.0 ESR 24 H Sodium 137 Potassium 4.1 Chloride 101 Carbon Dioxide 27 Anion Gap 9.0 BUN 26 H Creatinine 0.9 Estimated GFR (MDRD) 83 L Glucose 137 H Calcium 9.4 Total Bilirubin 0.8 AST 25 ALT 23 Alkaline Phosphatase 85 C-Reactive Protein 1.8 H Total Protein 7.2 Albumin 3.4 Globulin 3.8 Albumin/Globulin Ratio 0.9 L Lipase 15 L PD MEDICAL DECISION MAKING - ED course Complexity details: reviewed old records, reviewed results, re-evaluated patient , considered differential, d/w patient, d/w family, d/w technology methodology consultant ED course: Patient is a 72-year-old male who presents with a significant cellulitis to the left lower extremity. Has a history of septic shock 2 from same. He is a diabetic as well as has a left total knee replacement. Given vancomycin and ciprofloxacin in the ED as he has multiple allergies. He is well-appearing, nontoxic. Discussed the case with Dr. Melendez, hospitalist who accepts. This document was made in part using voice recognition software. While efforts are made to proofread this document, sound alike and grammatical errors may occur. - Sepsis Event Vital Signs: Vital Signs - 24 hr 10/06/17 10/07/17 23:10 00:26 Temperature 36.0 C L 36.3 C L Heart Rate 73 94 Respiratory 18 18 Rate Blood Pressure 161/86 H 149/86 H O2 Saturation 96 99 Oxygen O2 Source [With Activity] Room air O2 Source Room air Departure - Departure Disposition: 66 [facility] DC/Xfer Clinical Impression: Cellulitis Qualifiers: Site of cellulitis: extremity Site of cellulitis of extremity: lower extremity Laterality: left Qualified Code(s): L03.116 - Cellulitis of left lower limb Condition: Stable Discharge Date/Time: 10/07/17 01:50
[2017-10-07] MEDS ORDERED: hydrOXYzine PAMOATE 25 MG CAPSULE PO PRN (00:37)
[2017-10-07] MEDS ORDERED: ONDANSETRON 4 MG/2 ML VIAL IVP PRN (00:37)
[2017-10-07] MEDS ORDERED: PROCHLORPERAZINE 10 MG/2 ML VIAL IVP PRN (00:37)
[2017-10-07] MEDS ORDERED: PROMETHAZINE 25 MG/1 ML VIAL IM PRN (00:37)
--- NOTE | 2017-10-07 01:21 | HISTORY & PHYSICAL EXAMINATION ---
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 The patient has been hospitalized here at [facility] in the past for left lower extremity cellulitis with sepsis and septic shock. His last hospitalization was in June 2014. The patient states that he has been doing well since that hospitalization. He states that his diabetes has been fairly well controlled. He does see wound care for an ulcer on the bottom of his right foot and does have chronic issues with lower extremity swelling which comes and goes. The patient states that he continues to have chronic low back pain for which he is now on extended release morphine. The patient states he was in his normal state of health until September when he states that he suffered a fall with which he landed on his knees. He states that he scraped up both of his knees but the left knee was worse than the right. He states that initially it seemed like both his knees were healing up pretty well until about 2-3 days ago he started noticing blisters on his left leg. He states that these blisters then became confluent and he had redness all the way down his left lower extremity below his knee. He states that last night it became very hot, swollen and painful. He states that he is still able to walk on his left lower extremity and has full range motion of his knee without any significant pain. The patient denies having had any fevers or chills. He became concerned about this swelling and erythema as it became significantly worse overnight and finally his convinced him to come to the emergency department. Patient denies any headaches, blurred vision, runny nose, sore throat, nasal congestion, difficulty swallowing, chest pain, shortness of air, cough, orthopnea, PND, abdominal pain, nausea, vomiting, diarrhea, constipation, urinary urgency, urinary frequency, dysuria, muscle aches, neck stiffness, hair loss, polyuria, polydipsia, night sweats or any focal neurologic deficits On presentation to the emergency department the patient was afebrile and mildly hypertensive but otherwise vital signs were within normal limits. The patient underwent routine lab work which revealed no leukocytosis but a mildly elevated ESR and CRP. The patient's electrolytes were all within normal limits and his glucose was 137. The patient however had extensive swelling and redness of his left lower extremity along with swelling of his left knee. Given his past history of cellulitis with sepsis and septic shock in that same leg it was felt that the patient should be treated with IV antibiotics to avoid a similar fate on this presentation. The patient was given IV vancomycin and ciprofloxacin in the emergency department and admitted to the medical [facility] for left lower extremity cellulitis. History - Past Medical History Cardiovascular: reports: Congestive heart failure, Hypertension, High cholesterol, Atrial flutter, Atrial fibrillation Respiratory: reports: COPD, Pneumonia, Sleep apnea, Other (Pulmonary Fibrosis secondary to amiodarone) Endocrine/Autoimmune: reports: Type 2 diabetes GI: reports: GERD : reports: Benign prostate hypertrophy Musculoskeletal: reports: Chronic back pain, Other Derm: reports: Other MRSA Hx?: No - Past Surgical History Ortho: reports: Knee replacement Cardiovascular: reports: Pacemaker - Family & Social History Family History: Mother: (Father at 51 of CAD and Mom at 85 of CHF), CAD, Father: , CAD, Other family: CVA/TIA Living arrangement: At home Living Situation: With spouse/s.o. Social History Notes: The patient lives with his and [place], [place] on [address]. The patient and his moved would [facility] over 30 years ago from [place], [place]. 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 He and his along with her children moved [facility]. The patient has 4 children and 2 grandchildren all of whom live on [address]. The patient was previously a heavy smoker smoked 2+ packs per day but quit smoking in 1981 he smoked for about 15 years. The patient denies any current alcohol use and does not use any illicit drugs - POLST Patient has POLST: No POLST Status: Full Code Meds/Allgy - Home Medications Home Medications: Ambulatory Orders Medication Instructions Recorded Confirmed Fluticasone [Flonase] 2 sprays SANTHOSH DAILY 05/29/14 09/14/17 Fluticasone/Salmeterol [Advair 1 puffs IH BID 05/29/14 09/14/17 250-50 Diskus] Furosemide [Lasix] 40 mg PO ONCE 05/29/14 09/14/17 Ipratropium/Albuterol [Duoneb] 3 ml INH Q4H PRN 05/29/14 09/14/17 Pantoprazole Sodium [Protonix] 40 mg PO DAILY PM 05/29/14 09/14/17 Potassium Chloride [K-Dur] 20 meq PO DAILY 05/29/14 09/14/17 Pramipexole Di-HCl [Mirapex] 1.5 mg PO DAILY 05/29/14 09/14/17 Tamsulosin [Flomax] 0.4 mg PO DAILY 06/22/14 09/14/17 Morphine Sulfate [Morphine Sulfate 30 mg PO TID 05/12/16 09/14/17 ER] Triamcinolone 0.1% Cream [Kenalog 15 gm TOP DAILY 05/12/16 09/14/17 0.1% Cream] hydrOXYzine pamoate [Hydroxyzine 50 mg PO DAILY 05/12/16 09/14/17 Pamoate] Albuterol Sulf [Ventolin Hfa 2 puffs INH Q4HR PRN 10/25/16 09/14/17 Inhaler] Losartan [Cozaar] 25 mg PO DAILY 10/25/16 09/14/17 Oxymetazoline HCl [Afrin] 1 spray NS DAILY 10/25/16 09/14/17 Rivaroxaban [Xarelto] 20 mg PO DAILY 10/25/16 09/14/17 Tolterodine [Detrol LA] 4 mg PO DAILY 10/25/16 09/14/17 metFORMIN [Glucophage] 1,000 mg PO BIDWM 10/25/16 09/14/17 Cyclobenzaprine [Flexeril] 5 mg PO TID PRN 07/22/17 09/14/17 Polyethylene Glycol 3350 [Miralax] 5.6 g PO DAILY 09/14/17 09/14/17 Pravastatin [Pravachol] 1 tab PO DAILY 09/14/17 09/14/17 - Allergies Allergies/Adverse Reactions: Allergies Allergy/AdvReac Type Severity Reaction Status Date / Time Penicillins Allergy Intermediate Hives,itchi Verified 10/06/17 23:22 ng amiodarone Allergy Respiratory Verified 10/06/17 23:22 latex Allergy Rash Verified 10/06/17 23:39 rofecoxib [From Vioxx] Allergy Unknown Verified 10/06/17 23:22 cephalexin monohydrate * AdvReac Intermediate Itching Verified 10/06/17 23:22 [From Keflex] animal dander Allergy Unknown Uncoded 10/06/17 23:22 pollen Allergy Unknown Uncoded 10/06/17 23:22 Review of Systems - Other Findings Other Findings: A comprehensive review of systems was performed the pertinent positives and negatives are stated above in the HPI and the remainder of the review of systems is negative. Exam - Vital Signs Reviewed Vital Signs: Yes Vital Signs: Vital Signs x48h Temp Pulse Resp BP Pulse Ox 10/07/17 01:02 37.2 C 56 L 14 138/82 H 100 - Physical Exam General Appearance: positive: No acute distress, Alert, Other (obese) Eyes Bilateral: positive: Normal inspection, PERRL, EOMI, No lid inflammation, Conjunctivae nml, No scleral icterus ENT: positive: ENT inspection nml, Pharynx nml, Dry mucous membranes. negative : Purulent nasal drainage, Pharyngeal erythema, Oral lesions Neck: positive: Nml inspection, Thyroid nml, No JVD, Trachea midline. negative : Thyromegaly, Lymphadenopathy (R), Lymphadenopathy (L), Carotid bruit, Tracheal deviation Respiratory: positive: Chest non-tender, No respiratory distress, Breath sounds nml. negative: Wheezes, Rales, Rhonchi Cardiovascular: positive: No murmur, No gallop, Irregularly irregular Peripheral Pulses: positive: 2+ Abdomen: positive: Non-tender, No organomegaly, Nml bowel sounds, No distention , Other (Obese). negative: Guarding, Rebound Back: positive: Nml inspection. negative: CVA tenderness (R), CVA tenderness (L ) Skin: positive: Other (Left lower extremity cellulitis from the lower aspect of the anterior ramirez up to three quarters [address] way to the knee. The patient has erythema, swelling and warmth of that left lower extremity. Patient also has an area of erythema over the left knee with a small indurated area over the lower part of the kneecap. The patient's knee is not tender and he has full range of motion around the knee.) Extremities: positive: Non-tender, Full ROM, Nml appearance, Pedal edema ( Bilateral lower extremity edema left worse than right) Neurologic/Psychiatric: positive: Oriented x3, CN's nml (2-12), Motor nml, Sensation nml, Mood/affect nml Conclusion/Plan - Problem List (1) Cellulitis Conclusion/Plan: The patient presented to the emergency department with left lower extremity cellulitis. 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 He has had cellulitis of the same leg. This time the patient is not as ill on presentation however the cellulitis has become significantly worse just overnight and this is very concerning given the patient's history. 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 The x-ray of the prosthetic joint shows a small effusion and some soft tissue swelling. The patient's infection likely was triggered by his fall and scraping of his left knee which likely allowed bacteria to be introduced under the skin and this bacteria spread to the lower part of his leg. Given the patient's history and the involvement of his left knee with prosthetic joint it was felt that the patient would be best served getting IV antibiotics for 1-2 days and monitor closely in the hospital so that he does not again develop severe sepsis or septic shock. Plan: IV vancomycin IV fluids Wound care Pain control If patient spikes a fever we will get blood cultures Closely monitor for sepsis Orthopedic consult for evaluation of left knee effusion. Qualifiers: Site of cellulitis: extremity Site of cellulitis of extremity: lower extremity Laterality: left Qualified Code(s): L03.116 - Cellulitis of left lower limb (2) DM type 2, uncontrolled, with neuropathy Conclusion/Plan: Patient has history of diabetes and is managed without insulin just on metformin. The patient states that his blood sugars are usually between 120 and 140 at home. He is very meticulous with his diet. On presentation to the emergency department the patient's blood glucose is 137. Plan: We will hold the patient's metformin while he is hospitalized Patient will be started on sliding scale insulin Patient will be placed on a diabetic diet We will check hemoglobin A1c Patient needs tight control of his blood sugars given that he has ongoing cellulitis. (3) Atrial fibrillation Conclusion/Plan: Patient has history of chronic atrial fibrillation and is on Xarelto at home. Patient appears to have rate controlled A. fib with pacemaker. Plan: Patient will be continued on his home dose of Xarelto The patient does not appear to be on any rate control medications and we will continue to monitor his rate and start a rate control agent if needed. Qualifiers: Atrial fibrillation type: chronic Qualified Code(s): I48.2 - Chronic atrial fibrillation (4) Hypertension Conclusion/Plan: Patient has a history of hypertension on presentation to the emergency department the patient's blood pressure is elevated. Patient blood pressure could be elevated secondary to pain in his left lower extremity. The patient will be continued on his home antihypertensive medication losartan but we will hold his Lasix as the patient appears to be on the dry side and given infection we would like to give him IV fluids. The patient does have a history of diastolic heart failure therefore we will need to be careful when doing this. Qualifiers: Hypertension type: essential hypertension Qualified Code(s): I10 - Essential (primary) hypertension (5) Back pain Conclusion/Plan: Patient has chronic low back pain and is on chronic opioids at home. The patient is on extended release morphine 30 mg 3 times daily. We will continue this while the patient is hospitalized in place him on as needed oxycodone. The patient will also be continued on his home dose of Flexeril. 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 The patient is on Ventolin inhaler, duo nebs and Advair at home. The patient currently appears to be stable and he is not having any wheezing or shortness of breath. Plan: Patient will be placed on duo nebs as needed while he is hospitalized We will place him on formoterol and budesonide twice daily in place of Advair. Qualifiers: COPD type: chronic bronchitis (7) BPH (benign prostatic hyperplasia) Conclusion/Plan: Patient has a history of BPH and is on Flomax and tolterodine at home. We will continue these medications while he is hospitalized. Currently he is not having any symptoms and appears to be stable. Qualifiers: Lower urinary tract symptom presence: symptoms absent Qualified Code(s): N40.0 - Benign prostatic hyperplasia without lower urinary tract symptoms - Lab Results Lab results reviewed: Yes Fish Bones: 10/06/17 23:45 10/06/17 23:45 Other Lab Results: Laboratory Results WBC 9.0 x10^3/uL (4.8-10.8) 10/06/17 23:45 RBC 4.62 10^6/uL (4.70-6.10) L 10/06/17 23:45 Hgb 13.2 g/dL (14.0-18.0) L 10/06/17 23:45 Hct 40.3 % (42.0-52.0) L 10/06/17 23:45 MCV 87.3 fL (80.0-94.0) 10/06/17 23:45 MCH 28.5 pg (27.0-31.0) 10/06/17 23:45 MCHC 32.7 g/dL (32.0-36.0) 10/06/17 23:45 RDW 15.3 % (12.0-15.0) H 10/06/17 23:45 Plt Count 142 10^3/uL (130-450) 10/06/17 23:45 MPV 9.3 fL (7.4-11.4) 10/06/17 23:45 Neut # (Auto) 5.4 10^3/uL (1.5-6.6) 10/06/17 23:45 Lymph # (Auto) 2.2 10^3/uL (1.5-3.5) 10/06/17 23:45 [place] # (Auto) 0.9 10^3/uL (0.0-1.0) 10/06/17 23:45 Eos # (Auto) 0.4 10^3/uL (0.0-0.7) 10/06/17 23:45 Baso # (Auto) 0.1 10^3/uL (0.0-0.1) 10/06/17 23:45 Absolute Nucleated RBC 0.00 x10^3/uL 10/06/17 23:45 Nucleated RBC % 0.0 /100WBC 10/06/17 23:45 ESR 24 mm/Hr (0-20) H 10/06/17 23:45 Sodium 137 mmol/L (135-145) 10/06/17 23:45 Potassium 4.1 mmol/L (3.5-5.0) 10/06/17 23:45 Chloride 101 mmol/L (101-111) 10/06/17 23:45 Carbon Dioxide 27 mmol/L (21-32) 10/06/17 23:45 Anion Gap 9.0 (6-13) 10/06/17 23:45 BUN 26 mg/dL (6-20) H 10/06/17 23:45 Creatinine 0.9 mg/dL (0.6-1.2) 10/06/17 23:45 Estimated GFR (MDRD) 83 (>89) L 10/06/17 23:45 Glucose 137 mg/dL (70-100) H 10/06/17 23:45 Calcium 9.4 mg/dL (8.5-10.3) 10/06/17 23:45 Total Bilirubin 0.8 mg/dL (0.2-1.0) 10/06/17 23:45 AST 25 IU/L (10-42) 10/06/17 23:45 ALT 23 IU/L (10-60) 10/06/17 23:45 Alkaline Phosphatase 85 IU/L (42-121) 10/06/17 23:45 C-Reactive Protein 1.8 mg/dL (0-1.0) H 10/06/17 23:45 Total Protein 7.2 g/dL (6.7-8.2) 10/06/17 23:45 Albumin 3.4 g/dL (3.2-5.5) 10/06/17 23:45 Globulin 3.8 g/dL (2.1-4.2) 10/06/17 23:45 Albumin/Globulin Ratio 0.9 (1.0-2.2) L 10/06/17 23:45 Lipase 15 U/L (22-51) L 10/06/17 23:45 - Diagnostic Imaging Results Diagnostic Imaging Results: positive: Final report reviewed Diagnostic Imaging Results Comments: Knee x-ray Impression: 1. Total knee prosthesis. No acute osseous abnormality seen. 2. Soft tissue swelling and possible small joint effusion. Core Measures - Anticipated LOS I expect patient to be DC'd or transferred within 96 hours.: Yes - DVT/VTE - Prophylaxis VTE/DVT Device ordered at admit?: Yes
[2017-10-07] MEDS: FORMOTEROL FUMARATE NEB 20 MCG/2 ML INH SCH ×3 (01:56→20:19)
[2017-10-07] MEDS: BUDESONIDE 0.5 MG/2 ML NEB INH SCH ×3 (01:56→20:19)
--- NOTE | 2017-10-07 02:11 | XRAY Report ---
Procedure Date: 10/07/2017 Accession Number: [id number] / [id number] Procedure: XR - Knee 2 View LT CPT Code: FULL RESULT: EXAM: LEFT KNEE RADIOGRAPHY EXAM DATE: 10/07/2017 01:50 AM. CLINICAL HISTORY: Swelling, pain, redness of the knee. COMPARISON: 06/22/2014 5:20 AM. TECHNIQUE: 2 views. FINDINGS: Bones: Total knee prosthesis. No acute fracture seen. No focal area of bone destruction. Joints: No dislocation seen. Possible small joint effusion. Soft Tissues: Soft tissue swelling. IMPRESSION: 1. Total knee prosthesis. No acute osseous abnormality seen. 2. Soft tissue swelling and possible small joint effusion. RADIA
[2017-10-07] MEDS: ATORVASTATIN 40 MG TABLET PO SCH ×2 (02:26→21:08)
[2017-10-07] MEDS: FLUTICASONE NASAL SPRAY NAS SCH ×3 (02:26→17:56)
[2017-10-07] MEDS: LOSARTAN 50 MG TABLET PO SCH ×2 (02:27→08:30)
[2017-10-07] MEDS: RIVAROXABAN 10 MG TABLET PO SCH ×2 (02:27→17:08)
[2017-10-07] MEDS: TAMSULOSIN 0.4 MG CAPSULE PO SCH ×2 (02:28→08:30)
[2017-10-07] MEDS: TOLTERODINE LA 2 MG CAPSULE PO SCH (02:28)
[2017-10-07] MEDS: SODIUM CHLORIDE FLUSH 0.9% 10 ML SYRINGE IVP SCH ×3 (02:33→17:08)
[2017-10-07] MEDS: SODIUM CHLORIDE 0.9% 1,000 ML IV SCH ×3 (02:34→13:02)
[2017-10-07] MEDS ORDERED: LORazepam 0.5 MG TABLET PO STA (03:07)
[2017-10-07] MEDS: oxyCODONE 5 MG TABLET PO PRN ×4 (04:50→22:54)
[2017-10-07] MEDS ORDERED: MORPHINE ER 60 MG TABLET PO SCH (06:00)
[2017-10-07 06:06] LABS: BASOPHILS # (AUTO) 0.1 10^3/uL (0.0-0.1); BASOPHILS % (AUTO) 0.7 %; EOSINOPHILS # (AUTO) 0.4 10^3/uL (0.0-0.7); EOSINOPHILS % (AUTO) 4.1 %; HGB - HEMOGLOBIN 12.8 g/dL (14.0-18.0); LYMPHOCYTES # (AUTO) 1.9 10^3/uL (1.5-3.5); LYMPHOCYTES % (AUTO) 20.8 %; MEAN CORPUSCULAR HEMOGLOBIN 28.4 pg (27.0-31.0); MEAN CORPUSCULAR HGB CONC 32.9 g/dL (32.0-36.0); MEAN CORPUSCULAR VOLUME 86.1 fL (80.0-94.0); MEAN PLATELET VOLUME 9.6 fL (7.4-11.4); MONOCYTES # (AUTO) 0.9 10^3/uL (0.0-1.0); MONOCYTES % (AUTO) 10.2 %; NEUTROPHILS # (AUTO) 5.7 10^3/uL (1.5-6.6); NEUTROPHILS % (AUTO) 64.2 %; PLT - PLATELET COUNT 144 10^3/uL (130-450); RED BLOOD COUNT 4.53 10^6/uL (4.70-6.10); RED CELL DISTRIBUTION WIDTH 14.8 % (12.0-15.0); WHITE BLOOD COUNT 8.9 x10^3/uL (4.8-10.8)
[2017-10-07 06:14] LABS: CALCIUM 8.9 mg/dL (8.5-10.3); CREATININE 0.8 mg/dL (0.6-1.2)
[2017-10-07] MEDS: PANTOPRAZOLE 40 MG TABLET PO SCH (06:34)
[2017-10-07 06:40] LABS: HB2 TOTAL 13.6 g/dL; HEMOGLOBIN A1C 0.67 g/dL; HEMOGLOBIN A1C % 6.7 % (4.6-6.2)
[2017-10-07] MEDS: INSULIN ASPART 300 UNIT/3 ML PEN SUBQ SCH ×4 (08:29→20:23)
[2017-10-07] MEDS: MORPHINE ER 15 MG TABLET PO SCH ×3 (08:29→21:35)
[2017-10-07] MEDS: SACCHAROMYCES BOULARDII 250 MG CAPSULE PO SCH ×2 (08:30→17:08)
[2017-10-07] MEDS: POLYETHYLENE GLYCOL 3350 17 GM PACKET PO SCH (08:32)
[2017-10-07] MEDS ORDERED: TRIAMCINOLONE 0.1% CREAM 15 GM TUBE TOP SCH (09:00)
[2017-10-07] MEDS ORDERED: VANCOMYCIN INJ 1 GM in SODIUM CHLORIDE 0.9% 250 ML IV SCH ×2 (10:00→12:00)
[2017-10-07] MEDS ORDERED: PIPERACILLIN/TAZOBACTAM 3.375 GM in SODIUM CHLORIDE 0.9% MINIBAG 100 ML IV SCH (11:00)
[2017-10-07] MEDS: CEFEPIME 1 GM in SODIUM CHLORIDE 0.9% MINIBAG 100 ML IV SCH ×2 (13:03→21:34)
--- NOTE | 2017-10-07 15:39 | PROVIDER PROGRESS NOTE ---
Subjective - Prog Note Date Prog Note Date: 10/07/17 - Subjective Pt reports feeling: Improved Subjective: pt report he developed left low extremity cellulitis a few days ago. pt denies pain at cellulitis area, and distal toe's motor and sensation is intact. Pt also denies fever, chill, CP, SOB. Current Medications - Current Medications Current Medications: Active Medications Acetaminophen (Tylenol) 650 mg PO Q4HR PRN PRN Reason: Pain 1 to 4 Albuterol/Ipratropium (Duoneb) 3 ml INH Q4HR PRN PRN Reason: Wheezing Atorvastatin Calcium (Lipitor) 40 mg PO QPM [facility] Last Admin: 10/07/17 02:26 Dose: Not Given Budesonide (Pulmicort) 0.5 mg INH RTBID [facility] Last Admin: 10/07/17 07:44 Dose: 0.5 mg Cyclobenzaprine HCl (Flexeril) 10 mg PO TID PRN PRN Reason: Spasms Fluticasone Propionate (Flonase) 0 sprays SANTHOSH DAILY [facility] Last Admin: 10/07/17 08:30 Dose: 1 spr Formoterol Fumarate (Perforomist) 20 mcg INH RTBID [facility] Last Admin: 10/07/17 07:44 Dose: 20 mcg Hydroxyzine Pamoate (Vistaril) 25 mg PO QPM PRN PRN Reason: Insomnia Sodium Chloride (Normal Saline 0.9%) 1,000 mls @ 100 mls/hr IV .Q10H [facility] Stop: 10/07/17 20:59 Last Infusion: 10/07/17 13:05 Dose: 0 mls/hr Vancomycin HCl 1 gm/ Sodium (Chloride) 250 mls @ 167 mls/hr IV Q8H BO PRN Reason: Protocol Last Admin: 10/07/17 13:39 Dose: 167 mls/hr Cefepime HCl 1 gm/ Sodium (Chloride) 100 mls @ 200 mls/hr IV TID [facility] Last Infusion: 10/07/17 13:45 Dose: Infused Insulin Aspart (Novolog) 1 - 5 unit SUBQ 0800,1200,1700,2100 BO PRN Reason: Protocol Last Admin: 10/07/17 12:49 Dose: Not Given Losartan Potassium (Cozaar) 25 mg PO DAILY [facility] Last Admin: 10/07/17 08:30 Dose: 25 mg Morphine Sulfate () 30 mg PO TID [facility] Last Admin: 10/07/17 13:40 Dose: 30 mg Ondansetron HCl (Zofran Inj) 4 mg IVP Q6HR PRN PRN Reason: Nausea / Vomiting Oxycodone HCl (Roxicodone) 5 mg PO Q4HR PRN PRN Reason: Pain 5 to 7 Oxycodone HCl (Roxicodone) 10 mg PO Q4HR PRN PRN Reason: Pain 8 to 10 Last Admin: 10/07/17 13:02 Dose: 10 mg Pantoprazole Sodium (Protonix) 40 mg PO QDAC [facility] Last Admin: 10/07/17 06:34 Dose: 40 mg Polyethylene Glycol (Miralax) 17 gm PO DAILY [facility] Last Admin: 10/07/17 08:32 Dose: 17 gm Prochlorperazine Edisylate (Compazine Inj) 10 mg IVP Q6HR PRN PRN Reason: Nausea / Vomiting Promethazine HCl (Phenergan Inj) 25 mg IM Q6HR PRN PRN Reason: Nausea / Vomiting Rivaroxaban (Xarelto) 20 mg PO 1700 [facility] Last Admin: 10/07/17 02:27 Dose: Not Given Saccharomyces Boulardii (Florastor) 250 mg PO BIDWM [facility] Last Admin: 10/07/17 08:30 Dose: 250 mg Sodium Chloride (Normal Saline Flush 0.9%) 10 ml IVP PRN PRN PRN Reason: NEEDED PER PROVIDER ORDERS Sodium Chloride (Normal Saline Flush 0.9%) 10 ml IVP 0100,0900,1700 [facility] Last Admin: 10/07/17 08:30 Dose: Not Given Tamsulosin HCl (Flomax) 0.4 mg PO DAILY [facility] Last Admin: 10/07/17 08:30 Dose: 0.4 mg Temazepam (Restoril) 15 mg PO QPM PRN PRN Reason: Insomnia Tolterodine Tartrate (Detrol La) 4 mg PO DAILY [facility] Last Admin: 10/07/17 02:28 Dose: Not Given Triamcinolone Acetonide (Kenalog 0.1% Cream) 1 applic TOP BID [facility] Last Admin: 10/07/17 08:30 Dose: 1 applic Fluticasone [Flonase] 2 sprays SANTHOSH DAILY 05/29/14 Fluticasone/Salmeterol [Advair 250-50 Diskus] 1 puffs IH BID 05/29/14 Furosemide [Lasix] 40 mg PO .DAILY ON TUTHSASU 05/29/14 Ipratropium/Albuterol [Duoneb] 3 ml INH Q4H PRN 05/29/14 Pantoprazole Sodium [Protonix] 40 mg PO DAILY PM 05/29/14 Potassium Chloride [K-Dur] 20 meq PO DAILY 05/29/14 Pramipexole Di-HCl [Mirapex] 1.5 mg PO QPM 05/29/14 Tamsulosin [Flomax] 0.4 mg PO DAILY 06/22/14 Morphine Sulfate [Morphine Sulfate ER] 30 mg PO TID 05/12/16 Triamcinolone 0.1% Cream [Kenalog 0.1% Cream] 1 applic TOP DAILY PRN 05/12/16 Albuterol Sulf [Ventolin Hfa Inhaler] 2 puffs INH Q4HR PRN 10/25/16 Losartan [Cozaar] 25 mg PO DAILY 10/25/16 Oxymetazoline HCl [Afrin] 1 spray NS DAILY 10/25/16 Rivaroxaban [Xarelto] 20 mg PO DAILY 10/25/16 Tolterodine [Detrol LA] 4 mg PO DAILY 10/25/16 metFORMIN [Glucophage] 1,000 mg PO BIDWM 10/25/16 Cyclobenzaprine [Flexeril] 5 mg PO TID PRN 07/22/17 Polyethylene Glycol 3350 [Miralax] 5.6 g PO DAILY 09/14/17 Pravastatin [Pravachol] 40 mg PO DAILY 09/14/17 Furosemide [Lasix] 40 mg PO .BID ON MOWEFR 10/07/17 Oxycodone HCl [Oxycodone HCl] 10 mg PO BID PRN 10/07/17 hydrOXYzine HCl [Hydroxyzine HCl] 50 mg PO DAILY 10/07/17 Objective - Vital Signs/Intake & Output Reviewed Vital Signs: Yes Vital Signs: Vital Signs x48h Pulse Resp 10/07/17 07:44 65 14 Intake & Output: Intake & Output 10/04/17 10/05/17 10/06/17 10/07/17 23:59 23:59 23:59 23:59 Intake Total 2215 Balance 2215 - Objective General Appearance: positive: No acute distress, Alert. negative: Lethargic Eyes Bilateral: positive: Normal inspection, PERRL, No lid inflammation, Conjunctivae nml ENT: positive: ENT inspection nml, Pharynx nml, No signs of dehydration. negative: Purulent nasal drainage, Pharyngeal erythema, Oral lesions Neck: positive: Nml inspection, Thyroid nml, No JVD, Trachea midline. negative : Thyromegaly, Lymphadenopathy (R), Lymphadenopathy (L), Stiff neck, Carotid bruit, Swelling/bruising, Tracheal deviation Respiratory: positive: Chest non-tender, No respiratory distress, Breath sounds nml. negative: Wheezes, Rales, Rhonchi Cardiovascular: positive: Regular rate & rhythm, No murmur, No gallop. negative : Irregularly irregular, Extrasystoles, Tachycardia, Bradycardia, JVD present, Systolic murmur, Diastolic murmur Peripheral Pulses: 2+ Radial (R), 2+ Radial (L), 2+ Dorsalis pedis (R), 2+ Dorsalis pedis (L) Abdomen: positive: Non-tender, No organomegaly, Nml bowel sounds, No distention. negative: Tenderness, Guarding, Rebound Back: positive: Nml inspection. negative: CVA tenderness (R), CVA tenderness (L ) Skin: positive: Warm, Dry, Skin rash. negative: Cyanosis, Diaphoresis, Pallor Extremities: positive: Full ROM. negative: Calf tenderness, Joint swelling, Vibha's sign/cords Neurologic/Psychiatric: positive: Oriented x3, Motor nml, Sensation nml, Mood/ affect nml. negative: Weakness, Sensory loss, Facial droop, Slurred/abnml speech, Depressed mood/affect - Lab Results Fish Bones: 10/07/17 05:45 10/07/17 05:45 Other Labs: Lab Results x24hrs 10/07/17 10/07/17 10/07/17 Range/Units 11:17 05:45 05:45 WBC (4.8-10.8) x10^3/uL RBC (4.70-6.10) 10^6/uL Hgb (14.0-18.0) g/dL Hct (42.0-52.0) % MCV (80.0-94.0) fL MCH (27.0-31.0) pg MCHC (32.0-36.0) g/dL RDW (12.0-15.0) % Plt Count (130-450) 10^3/uL MPV (7.4-11.4) fL Neut # (Auto) (1.5-6.6) 10^3/uL Lymph # (Auto) (1.5-3.5) 10^3/uL Quay # (Auto) (0.0-1.0) 10^3/uL Eos # (Auto) (0.0-0.7) 10^3/uL Baso # (Auto) (0.0-0.1) 10^3/uL Absolute Nucleated RBC x10^3/uL Nucleated RBC % /100WBC Sodium 136 (135-145) mmol/L Potassium 4.1 (3.5-5.0) mmol/L Chloride 102 (101-111) mmol/L Carbon Dioxide 27 (21-32) mmol/L Anion Gap 7.0 (6-13) BUN 24 H (6-20) mg/dL Creatinine 0.8 (0.6-1.2) mg/dL Estimated GFR (MDRD) 95 (>89) Glucose 118 H (70-100) mg/dL POC Whole Bld Glucose 135 H (70 - 100) mg/dL Glycated Hemoglobin 6.7 H (4.6-6.2) % Estim Average Glucose 146 H (70-100) Calcium 8.9 (8.5-10.3) mg/dL 10/07/17 Range/Units 05:45 WBC 8.9 (4.8-10.8) x10^3/uL RBC 4.53 L (4.70-6.10) 10^6/uL Hgb 12.8 L (14.0-18.0) g/dL Hct 39.0 L (42.0-52.0) % MCV 86.1 (80.0-94.0) fL MCH 28.4 (27.0-31.0) pg MCHC 32.9 (32.0-36.0) g/dL RDW 14.8 (12.0-15.0) % Plt Count 144 (130-450) 10^3/uL MPV 9.6 (7.4-11.4) fL Neut # (Auto) 5.7 (1.5-6.6) 10^3/uL Lymph # (Auto) 1.9 (1.5-3.5) 10^3/uL Quay # (Auto) 0.9 (0.0-1.0) 10^3/uL Eos # (Auto) 0.4 (0.0-0.7) 10^3/uL Baso # (Auto) 0.1 (0.0-0.1) 10^3/uL Absolute Nucleated RBC 0.00 x10^3/uL Nucleated RBC % 0.1 /100WBC Sodium (135-145) mmol/L Potassium (3.5-5.0) mmol/L Chloride (101-111) mmol/L Carbon Dioxide (21-32) mmol/L Anion Gap (6-13) BUN (6-20) mg/dL Creatinine (0.6-1.2) mg/dL Estimated GFR (MDRD) (>89) Glucose (70-100) mg/dL POC Whole Bld Glucose (70 - 100) mg/dL Glycated Hemoglobin (4.6-6.2) % Estim Average Glucose (70-100) Calcium (8.5-10.3) mg/dL ABX Reporting Has patient been on IV antibiotics over the past 48 hours?: Yes Assessment/Plan - Problem List (1) Cellulitis Impression: Conclusion/Plan: 10/07 add Cefepime to pt, pt has significantly infection in the left low extremity, pt is DM, will follow up blood culture although no fever, not elevated WBC, but infection is severe. Pt denies pain, and pt has intact motor and sensation at the distal of all toes. IV vancomycin and cefepime IV fluids Wound care Pain control Closely monitor for sepsis, worsening of NF Orthopedic consult for evaluation of left knee effusion, will follow up The patient presented to the emergency department with left lower extremity cellulitis. 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 He has had cellulitis of the same leg. This time the patient is not as ill on presentation however the cellulitis has become significantly worse just overnight and this is very concerning given the patient's history. 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 The x-ray of the prosthetic joint shows a small effusion and some soft tissue swelling. The patient's infection likely was triggered by his fall and scraping of his left knee which likely allowed bacteria to be introduced under the skin and this bacteria spread to the lower part of his leg. Given the patient's history and the involvement of his left knee with prosthetic joint it was felt that the patient would be best served getting IV antibiotics for 1-2 days and monitor closely in the hospital so that he does not again develop severe sepsis or septic shock. Plan: IV vancomycin IV fluids Wound care Pain control If patient spikes a fever we will get blood cultures Closely monitor for sepsis Orthopedic consult for evaluation of left knee effusion. (2) DM type 2, uncontrolled, with neuropathy Conclusion/Plan: 10/07 A1C is 6.7, glucose is well controlled continue insulin and slide scale Patient has history of diabetes and is managed without insulin just on metformin. The patient states that his blood sugars are usually between 120 and 140 at home. He is very meticulous with his diet. On presentation to the emergency department the patient's blood glucose is 137. Plan: We will hold the patient's metformin while he is hospitalized Patient will be started on sliding scale insulin Patient will be placed on a diabetic diet We will check hemoglobin A1c Patient needs tight control of his blood sugars given that he has ongoing cellulitis. (3) Atrial fibrillation Conclusion/Plan: Patient has history of chronic atrial fibrillation and is on Xarelto at home. Patient appears to have rate controlled A. fib with pacemaker. Plan: Patient will be continued on his home dose of Xarelto The patient does not appear to be on any rate control medications and we will continue to monitor his rate and start a rate control agent if needed. (4) Hypertension Conclusion/Plan: Patient has a history of hypertension on presentation to the emergency department the patient's blood pressure is elevated. Patient blood pressure could be elevated secondary to pain in his left lower extremity. The patient will be continued on his home antihypertensive medication losartan but we will hold his Lasix as the patient appears to be on the dry side and given infection we would like to give him IV fluids. The patient does have a history of diastolic heart failure therefore we will need to be careful when doing this. (5) Back pain Conclusion/Plan: no further pain complaint. continue with home pain medication for pain control Patient has chronic low back pain and is on chronic opioids at home. The patient is on extended release morphine 30 mg 3 times daily. We will continue this while the patient is hospitalized in place him on as needed oxycodone. The patient will also be continued on his home dose of Flexeril. 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 The patient is on Ventolin inhaler, duo nebs and Advair at home. The patient currently appears to be stable and he is not having any wheezing or shortness of breath. Plan: Patient will be placed on duo nebs as needed while he is hospitalized We will place him on formoterol and budesonide twice daily in place of Advair. (7) BPH (benign prostatic hyperplasia) Conclusion/Plan: Patient has a history of BPH and is on Flomax and tolterodine at home. We will continue these medications while he is hospitalized. Currently he is not having any symptoms and appears to be stable. Qualifiers: Site of cellulitis: extremity Site of cellulitis of extremity: lower extremity Laterality: left Qualified Code(s): L03.116 - Cellulitis of left lower limb
[2017-10-07] MEDS: SODIUM CHLORIDE FLUSH 0.9% 10 ML SYRINGE IVP PRN (17:08)
[2017-10-07] MEDS: CYCLOBENZAPRINE 10 MG TABLET PO PRN (20:03)
[2017-10-07] MEDS: IPRATROPIUM/ALBUTEROL 3 ML NEB INH PRN (20:19)
[2017-10-07] MEDS: VANCOMYCIN INJ 1 GM in SODIUM CHLORIDE 0.9% 250 ML IV SCH (22:14)
[2017-10-08] MEDS: SODIUM CHLORIDE FLUSH 0.9% 10 ML SYRINGE IVP SCH ×3 (00:46→17:47)
[2017-10-08] MEDS: ACETAMINOPHEN 325 MG TABLET PO PRN ×3 (00:55→13:47)
[2017-10-08] MEDS: oxyCODONE 5 MG TABLET PO PRN ×3 (03:06→13:50)
[2017-10-08 05:41] LABS: BASOPHILS % (AUTO) 0.3 %; EOSINOPHILS # (AUTO) 0.2 10^3/uL (0.0-0.7); EOSINOPHILS % (AUTO) 2.4 %; HGB - HEMOGLOBIN 14.2 g/dL (14.0-18.0); LYMPHOCYTES # (AUTO) 0.4 10^3/uL (1.5-3.5); LYMPHOCYTES % (AUTO) 4.4 %; MEAN CORPUSCULAR HEMOGLOBIN 28.4 pg (27.0-31.0); MEAN CORPUSCULAR VOLUME 88.9 fL (80.0-94.0); MEAN PLATELET VOLUME 9.5 fL (7.4-11.4); MONOCYTES # (AUTO) 0.6 10^3/uL (0.0-1.0); MONOCYTES % (AUTO) 7.1 %; NEUTROPHILS % (AUTO) 85.8 %; PLT - PLATELET COUNT 131 10^3/uL (130-450); RED BLOOD COUNT 5.01 10^6/uL (4.70-6.10); RED CELL DISTRIBUTION WIDTH 15.6 % (12.0-15.0); WHITE BLOOD COUNT 8.2 x10^3/uL (4.8-10.8)
[2017-10-08 05:46] LABS: CREATININE 0.9 mg/dL (0.6-1.2)
[2017-10-08] MEDS: MORPHINE ER 15 MG TABLET PO SCH ×3 (06:09→20:44)
[2017-10-08] MEDS: PANTOPRAZOLE 40 MG TABLET PO SCH (06:10)
[2017-10-08] MEDS: SODIUM CHLORIDE FLUSH 0.9% 10 ML SYRINGE IVP PRN (06:10)
[2017-10-08] MEDS: CEFEPIME 1 GM in SODIUM CHLORIDE 0.9% MINIBAG 100 ML IV SCH (06:12)
[2017-10-08] MEDS: VANCOMYCIN INJ 1 GM in SODIUM CHLORIDE 0.9% 250 ML IV SCH ×3 (06:51→22:03)
[2017-10-08] MEDS: INSULIN ASPART 300 UNIT/3 ML PEN SUBQ SCH ×4 (08:37→20:34)
[2017-10-08] MEDS ORDERED: AZTREONAM 1 GM in SODIUM CHLORIDE 0.9% MINIBAG 100 ML IV SCH (09:00)
[2017-10-08] MEDS ORDERED: IOPAMIDOL-300 100 ML VIAL ONE (09:01)
[2017-10-08 09:03] LABS: ABG BASE EXCESS 1.1 mmol/L (-2.0-3.0); ABG HCO3 24.2 mmol/L (22.0-26.0); ABG OXYGEN SATURATION 93 % (94-98); ABG PCO2 34 mmHg (34-45); ABG PH 7.47 (7.35-7.45); ABG PO2 62 mmHg (80-100); ABG TCO2 25.2 MMOL/L (21.0-29.0); ALLEN TEST POSITIVE
--- NOTE | 2017-10-08 09:42 | XRAY Report ---
Procedure Date: 10/08/2017 Accession Number: [id number] / [id number] Procedure: XR - Chest 1 View X-Ray CPT Code: 03897 FULL RESULT: EXAM: CHEST RADIOGRAPHY EXAM DATE: 10/08/2017 09:15 AM. CLINICAL HISTORY: SOB, fever. COMPARISON: CHEST 2 VIEW 09/14/2017. TECHNIQUE: 1 view. FINDINGS: Lungs/Pleura: Diffuse bilateral airspace opacities, right worse than left, have significantly increased compared to prior. No pneumothorax or large pleural effusion. Mediastinum: Mild to moderate enlargement of the cardiac silhouette as before. Other: Left chest single-lead cardiac conduction device in place. IMPRESSION: Extensive bilateral airspace opacities, right worse than left, most likely reflect infection or edema. [facility]
[2017-10-08] MEDS ORDERED: IOPAMIDOL-300 100 ML VIAL IVP ONE (09:47)
[2017-10-08] MEDS: FORMOTEROL FUMARATE NEB 20 MCG/2 ML INH SCH ×2 (10:02→19:49)
[2017-10-08] MEDS: BUDESONIDE 0.5 MG/2 ML NEB INH SCH ×2 (10:02→19:48)
[2017-10-08] MEDS: FUROSEMIDE 40 MG/4 ML VIAL IVP SCH (10:11)
--- NOTE | 2017-10-08 10:19 | CT Report ---
Procedure Date: 10/08/2017 Accession Number: [id number] / [id number] Procedure: CT - Lower Extremity Left W/ CPT Code: FULL RESULT: EXAM: LEFT LOWER EXTREMITY CT WITH CONTRAST EXAM DATE: 10/08/2017 09:41 AM. CLINICAL HISTORY: Worsening cellulitis. Clinical concern for necrotizing fasciitis or DVT. COMPARISON: 01/25/2015. TECHNIQUE: Thin-section axial images were acquired of the lower extremity from the distal thigh to the foot after administration of intravenous contrast. IV contrast: 100 mL [id number]. Post-processing: Coronal and sagittal reformats. Other: None. In accordance with CT protocol optimization, one or more of the following dose reduction techniques were utilized for this exam: automated exposure control, adjustment of mA and/or KV based on patient size, or use of iterative reconstructive technique. FINDINGS: Bones: A 3-component total knee arthroplasty is in gross anatomic alignment. No unexpected periprosthetic lucencies or fractures. Musculature: The patient has severe fatty atrophy of the calf musculature. Other: Subcutaneous edema is demonstrated, consistent with cellulitis. No rim-enhancing drainable fluid collections. No large deep venous thrombosis. No subcutaneous emphysema. IMPRESSION: Cellulitis of the calf. [facility]
[2017-10-08] MEDS: SACCHAROMYCES BOULARDII 250 MG CAPSULE PO SCH ×2 (10:35→17:46)
[2017-10-08] MEDS: TOLTERODINE LA 2 MG CAPSULE PO SCH (10:35)
[2017-10-08] MEDS: TAMSULOSIN 0.4 MG CAPSULE PO SCH (10:37)
[2017-10-08] MEDS ORDERED: PETROLATUM WHITE 5 GM PACKET TOP ONE (11:06)
[2017-10-08] MEDS: POLYETHYLENE GLYCOL 3350 17 GM PACKET PO SCH (11:47)
[2017-10-08] MEDS: LOSARTAN 50 MG TABLET PO SCH (12:20)
--- NOTE | 2017-10-08 13:50 | PROVIDER PROGRESS NOTE ---
Subjective - Prog Note Date Prog Note Date: 10/08/17 - Subjective Pt reports feeling: No change Subjective: pt present some restless at the morning. Pt had his own CPAP but he did not use the CPAP for last night. I saw pt's cellulitis is better in yesterday afternoon , reduced erythema, reduced swelling, but today morning, there is nearly worsening as the same as yesterday morning when I first saw pt, erythema, swelling at left low extremity. Pt had Cefepime and Vancomycin on yesterday. pt had hx of allergy of penicillins. Switch Cefepime to Aztreonam, continue Vancomyin. I called [facility] for ID consult. Doctor Cherrie called me back. She state she agree our treatment plan, state this kind of infection usually appears worsening at the beginning, will be better after treatment. She recommend to have MITCHELL for pt, and elevated pt's life leg. I called Dr. Ibarra, orthopedics for small effusion at left knee. I ordered ABGs since pt present restless and some kind of confusion. Pt did not use CPAP on last night. I order CXR, and contrast CT of low extremity to R/O necrotizing fasciitis, and DVT. Current Medications - Current Medications Current Medications: Active Medications Acetaminophen (Tylenol) 650 mg PO Q4HR PRN PRN Reason: Pain 1 to 4 Last Admin: 10/08/17 13:47 Dose: 650 mg Albuterol/Ipratropium (Duoneb) 3 ml INH Q4HR PRN PRN Reason: Wheezing Last Admin: 10/07/17 20:19 Dose: 3 ml Atorvastatin Calcium (Lipitor) 40 mg PO QPM BO Last Admin: 10/07/17 21:08 Dose: 40 mg Budesonide (Pulmicort) 0.5 mg INH RTBID BO Last Admin: 10/08/17 10:02 Dose: 0.5 mg Cyclobenzaprine HCl (Flexeril) 10 mg PO TID PRN PRN Reason: Spasms Last Admin: 10/08/17 16:22 Dose: 10 mg Fluticasone Propionate (Flonase) 0 sprays SANTHOSH DAILY BO Last Admin: 10/08/17 15:45 Dose: Not Given Formoterol Fumarate (Perforomist) 20 mcg INH RTBID BO Last Admin: 10/08/17 10:02 Dose: 20 mcg Furosemide (Lasix Inj 40 Mg Vial) 40 mg IVP DAILY [facility] Last Admin: 10/08/17 10:11 Dose: 40 mg Hydroxyzine Pamoate (Vistaril) 25 mg PO QPM PRN PRN Reason: Insomnia Vancomycin HCl 1 gm/ Sodium (Chloride) 250 mls @ 167 mls/hr IV Q8H [facility] PRN Reason: Protocol Last Admin: 10/08/17 16:13 Dose: 167 mls/hr Aztreonam 1 gm/ Sodium (Chloride) 100 mls @ 200 mls/hr IV Q6H [facility] Insulin Aspart (Novolog) 1 - 5 unit SUBQ 0800,1200,1700,2100 [facility] PRN Reason: Protocol Last Admin: 10/08/17 11:46 Dose: Not Given Lorazepam (Ativan Inj (Vial)) 0.5 mg IVP Q2H PRN PRN Reason: Anxiety Losartan Potassium (Cozaar) 25 mg PO DAILY [facility] Last Admin: 10/08/17 12:20 Dose: 25 mg Morphine Sulfate () 30 mg PO TID [facility] Last Admin: 10/08/17 13:49 Dose: 30 mg Ondansetron HCl (Zofran Inj) 4 mg IVP Q6HR PRN PRN Reason: Nausea / Vomiting Oxycodone HCl (Roxicodone) 5 mg PO Q4HR PRN PRN Reason: Pain 5 to 7 Last Admin: 10/08/17 13:50 Dose: 5 mg Oxycodone HCl (Roxicodone) 10 mg PO Q4HR PRN PRN Reason: Pain 8 to 10 Last Admin: 10/08/17 07:27 Dose: 10 mg Pantoprazole Sodium (Protonix) 40 mg PO QDAC [facility] Last Admin: 10/08/17 06:10 Dose: 40 mg Polyethylene Glycol (Miralax) 17 gm PO DAILY [facility] Last Admin: 10/08/17 11:47 Dose: Not Given Prochlorperazine Edisylate (Compazine Inj) 10 mg IVP Q6HR PRN PRN Reason: Nausea / Vomiting Promethazine HCl (Phenergan Inj) 25 mg IM Q6HR PRN PRN Reason: Nausea / Vomiting Rivaroxaban (Xarelto) 20 mg PO 1700 [facility] Last Admin: 10/07/17 17:08 Dose: 20 mg Saccharomyces Boulardii (Florastor) 250 mg PO BIDWM [facility] Last Admin: 10/08/17 10:35 Dose: 250 mg Sodium Chloride (Normal Saline Flush 0.9%) 10 ml IVP PRN PRN PRN Reason: NEEDED PER PROVIDER ORDERS Last Admin: 10/08/17 06:10 Dose: 10 ml Sodium Chloride (Normal Saline Flush 0.9%) 10 ml IVP 0100,0900,1700 [facility] Last Admin: 10/08/17 10:15 Dose: 10 ml Tamsulosin HCl (Flomax) 0.4 mg PO DAILY [facility] Last Admin: 10/08/17 10:37 Dose: 0.4 mg Temazepam (Restoril) 15 mg PO QPM PRN PRN Reason: Insomnia Tolterodine Tartrate (Detrol La) 4 mg PO DAILY [facility] Last Admin: 10/08/17 10:35 Dose: 4 mg Fluticasone [Flonase] 2 sprays SANTHOSH DAILY 05/29/14 Fluticasone/Salmeterol [Advair 250-50 Diskus] 1 puffs IH BID 05/29/14 Furosemide [Lasix] 40 mg PO .DAILY ON TUTHSASU 05/29/14 Ipratropium/Albuterol [Duoneb] 3 ml INH Q4H PRN 05/29/14 Pantoprazole Sodium [Protonix] 40 mg PO DAILY PM 05/29/14 Potassium Chloride [K-Dur] 20 meq PO DAILY 05/29/14 Pramipexole Di-HCl [Mirapex] 1.5 mg PO QPM 05/29/14 Tamsulosin [Flomax] 0.4 mg PO DAILY 06/22/14 Morphine Sulfate [Morphine Sulfate ER] 30 mg PO TID 05/12/16 Triamcinolone 0.1% Cream [Kenalog 0.1% Cream] 1 applic TOP DAILY PRN 05/12/16 Albuterol Sulf [Ventolin Hfa Inhaler] 2 puffs INH Q4HR PRN 10/25/16 Losartan [Cozaar] 25 mg PO DAILY 10/25/16 Oxymetazoline HCl [Afrin] 1 spray NS DAILY 10/25/16 Rivaroxaban [Xarelto] 20 mg PO DAILY 10/25/16 Tolterodine [Detrol LA] 4 mg PO DAILY 10/25/16 metFORMIN [Glucophage] 1,000 mg PO BIDWM 10/25/16 Cyclobenzaprine [Flexeril] 5 mg PO TID PRN 07/22/17 Polyethylene Glycol 3350 [Miralax] 5.6 g PO DAILY 09/14/17 Pravastatin [Pravachol] 40 mg PO DAILY 09/14/17 Furosemide [Lasix] 40 mg PO .BID ON MOWEFR 10/07/17 Oxycodone HCl [Oxycodone HCl] 10 mg PO BID PRN 10/07/17 hydrOXYzine HCl [Hydroxyzine HCl] 50 mg PO DAILY 10/07/17 Objective - Vital Signs/Intake & Output Reviewed Vital Signs: Yes Vital Signs: Vital Signs x48h Temp Pulse Pulse Resp BP Pulse Ox 10/08/17 10:02 82 16 10/08/17 07:46 37.0 C 108 H 20 138/103 H 92 10/08/17 06:21 37.3 C 99 18 129/91 H 96 Intake & Output: Intake & Output 10/05/17 10/06/17 10/07/17 10/08/17 23:59 23:59 23:59 23:59 Intake Total 3883.000 1017.000 Output Total 451 Balance 3883.000 566.000 - Objective General Appearance: positive: No acute distress, Alert. negative: Lethargic Eyes Bilateral: positive: Normal inspection, PERRL, No lid inflammation, Conjunctivae nml ENT: positive: ENT inspection nml, Pharynx nml, No signs of dehydration. negative: Purulent nasal drainage, Pharyngeal erythema, Oral lesions Neck: positive: Nml inspection, Thyroid nml, No JVD, Trachea midline. negative : Thyromegaly, Lymphadenopathy (R), Lymphadenopathy (L), Stiff neck, Carotid bruit, Swelling/bruising, Tracheal deviation Respiratory: positive: Chest non-tender, No respiratory distress, Breath sounds nml. negative: Wheezes, Rales, Rhonchi Cardiovascular: positive: Regular rate & rhythm, No murmur, No gallop. negative : Irregularly irregular, Extrasystoles, Tachycardia, Bradycardia, JVD present, Systolic murmur, Diastolic murmur Peripheral Pulses: 2+ Radial (R), 2+ Radial (L), 2+ Dorsalis pedis (R), 2+ Dorsalis pedis (L) Abdomen: positive: Non-tender, No organomegaly, Nml bowel sounds, No distention. negative: Tenderness, Guarding, Rebound Back: positive: Nml inspection. negative: CVA tenderness (R), CVA tenderness (L ) Skin: positive: Warm, Dry, Skin rash. negative: Cyanosis, Diaphoresis, Pallor Extremities: positive: Pedal edema, Joint swelling. negative: Nml appearance, Calf tenderness, Vibha's sign/cords Neurologic/Psychiatric: positive: Oriented x3, Sensation nml, Mood/affect nml. negative: Weakness, Sensory loss, Facial droop, Slurred/abnml speech, Depressed mood/affect - Lab Results Fish Bones: 10/08/17 05:20 10/08/17 05:20 Other Labs: Lab Results x24hrs 10/08/17 10/08/17 10/08/17 Range/Units 13:30 11:39 08:52 WBC (4.8-10.8) x10^3/uL RBC (4.70-6.10) 10^6/uL Hgb (14.0-18.0) g/dL Hct (42.0-52.0) % MCV (80.0-94.0) fL MCH (27.0-31.0) pg MCHC (32.0-36.0) g/dL RDW (12.0-15.0) % Plt Count (130-450) 10^3/uL MPV (7.4-11.4) fL Neut # (Auto) (1.5-6.6) 10^3/uL Lymph # (Auto) (1.5-3.5) 10^3/uL Victoria # (Auto) (0.0-1.0) 10^3/uL Eos # (Auto) (0.0-0.7) 10^3/uL Baso # (Auto) (0.0-0.1) 10^3/uL Absolute Nucleated RBC x10^3/uL Nucleated RBC % /100WBC Bld Gas Analysis Time 0900 Sample Site LEFT RADIAL ABG pH 7.47 H (7.35-7.45) ABG pCO2 34 (34-45) mmHg ABG pO2 62 L (80-100) mmHg ABG HCO3 24.2 (22.0-26.0) mmol/L ABG Total CO2 25.2 (21.0-29.0) MMOL/L ABG O2 Saturation 93 L (94-98) % ABG Oximetry Spot Check 94 % ABG Base Excess 1.1 (-2.0-3.0) mmol/L Deejay Test POSITIVE Room Air YES Sodium (135-145) mmol/L Potassium (3.5-5.0) mmol/L Chloride (101-111) mmol/L Carbon Dioxide (21-32) mmol/L Anion Gap (6-13) BUN (6-20) mg/dL Creatinine (0.6-1.2) mg/dL Estimated GFR (MDRD) (>89) Glucose (70-100) mg/dL POC Whole Bld Glucose 130 H (70 - 100) mg/dL Lactic Acid (0.5-2.2) mmol/L Calcium (8.5-10.3) mg/dL Last Dose Date 10/08/17 Last Dose Time 0651 10/08/17 10/08/17 10/08/17 Range/Units 08:21 07:32 05:20 WBC (4.8-10.8) x10^3/uL RBC (4.70-6.10) 10^6/uL Hgb (14.0-18.0) g/dL Hct (42.0-52.0) % MCV (80.0-94.0) fL MCH (27.0-31.0) pg MCHC (32.0-36.0) g/dL RDW (12.0-15.0) % Plt Count (130-450) 10^3/uL MPV (7.4-11.4) fL Neut # (Auto) (1.5-6.6) 10^3/uL Lymph # (Auto) (1.5-3.5) 10^3/uL Victoria # (Auto) (0.0-1.0) 10^3/uL Eos # (Auto) (0.0-0.7) 10^3/uL Baso # (Auto) (0.0-0.1) 10^3/uL Absolute Nucleated RBC x10^3/uL Nucleated RBC % /100WBC Bld Gas Analysis Time Sample Site ABG pH (7.35-7.45) ABG pCO2 (34-45) mmHg ABG pO2 (80-100) mmHg ABG HCO3 (22.0-26.0) mmol/L ABG Total CO2 (21.0-29.0) MMOL/L ABG O2 Saturation (94-98) % ABG Oximetry Spot Check % ABG Base Excess (-2.0-3.0) mmol/L Deejay Test Room Air Sodium 138 (135-145) mmol/L Potassium 4.3 (3.5-5.0) mmol/L Chloride 104 (101-111) mmol/L Carbon Dioxide 24 (21-32) mmol/L Anion Gap 10.0 (6-13) BUN 19 (6-20) mg/dL Creatinine 0.9 (0.6-1.2) mg/dL Estimated GFR (MDRD) 83 L (>89) Glucose 107 H (70-100) mg/dL POC Whole Bld Glucose 87 (70 - 100) mg/dL Lactic Acid 1.5 (0.5-2.2) mmol/L Calcium 9.0 (8.5-10.3) mg/dL Last Dose Date Last Dose Time 10/08/17 10/07/17 10/07/17 Range/Units 05:20 20:20 17:01 WBC 8.2 (4.8-10.8) x10^3/uL RBC 5.01 (4.70-6.10) 10^6/uL Hgb 14.2 (14.0-18.0) g/dL Hct 44.5 (42.0-52.0) % MCV 88.9 (80.0-94.0) fL MCH 28.4 (27.0-31.0) pg MCHC 32.0 (32.0-36.0) g/dL RDW 15.6 H (12.0-15.0) % Plt Count 131 (130-450) 10^3/uL MPV 9.5 (7.4-11.4) fL Neut # (Auto) 7.0 H (1.5-6.6) 10^3/uL Lymph # (Auto) 0.4 L (1.5-3.5) 10^3/uL Victoria # (Auto) 0.6 (0.0-1.0) 10^3/uL Eos # (Auto) 0.2 (0.0-0.7) 10^3/uL Baso # (Auto) 0.0 (0.0-0.1) 10^3/uL Absolute Nucleated RBC 0.00 x10^3/uL Nucleated RBC % 0.1 /100WBC Bld Gas Analysis Time Sample Site ABG pH (7.35-7.45) ABG pCO2 (34-45) mmHg ABG pO2 (80-100) mmHg ABG HCO3 (22.0-26.0) mmol/L ABG Total CO2 (21.0-29.0) MMOL/L ABG O2 Saturation (94-98) % ABG Oximetry Spot Check % ABG Base Excess (-2.0-3.0) mmol/L Deejay Test Room Air Sodium (135-145) mmol/L Potassium (3.5-5.0) mmol/L Chloride (101-111) mmol/L Carbon Dioxide (21-32) mmol/L Anion Gap (6-13) BUN (6-20) mg/dL Creatinine (0.6-1.2) mg/dL Estimated GFR (MDRD) (>89) Glucose (70-100) mg/dL POC Whole Bld Glucose 104 H 130 H (70 - 100) mg/dL Lactic Acid (0.5-2.2) mmol/L Calcium (8.5-10.3) mg/dL Last Dose Date Last Dose Time 10/07/17 Range/Units 07:24 WBC (4.8-10.8) x10^3/uL RBC (4.70-6.10) 10^6/uL Hgb (14.0-18.0) g/dL Hct (42.0-52.0) % MCV (80.0-94.0) fL MCH (27.0-31.0) pg MCHC (32.0-36.0) g/dL RDW (12.0-15.0) % Plt Count (130-450) 10^3/uL MPV (7.4-11.4) fL Neut # (Auto) (1.5-6.6) 10^3/uL Lymph # (Auto) (1.5-3.5) 10^3/uL Victoria # (Auto) (0.0-1.0) 10^3/uL Eos # (Auto) (0.0-0.7) 10^3/uL Baso # (Auto) (0.0-0.1) 10^3/uL Absolute Nucleated RBC x10^3/uL Nucleated RBC % /100WBC Bld Gas Analysis Time Sample Site ABG pH (7.35-7.45) ABG pCO2 (34-45) mmHg ABG pO2 (80-100) mmHg ABG HCO3 (22.0-26.0) mmol/L ABG Total CO2 (21.0-29.0) MMOL/L ABG O2 Saturation (94-98) % ABG Oximetry Spot Check % ABG Base Excess (-2.0-3.0) mmol/L Deejay Test Room Air Sodium (135-145) mmol/L Potassium (3.5-5.0) mmol/L Chloride (101-111) mmol/L Carbon Dioxide (21-32) mmol/L Anion Gap (6-13) BUN (6-20) mg/dL Creatinine (0.6-1.2) mg/dL Estimated GFR (MDRD) (>89) Glucose (70-100) mg/dL POC Whole Bld Glucose 122 H (70 - 100) mg/dL Lactic Acid (0.5-2.2) mmol/L Calcium (8.5-10.3) mg/dL Last Dose Date Last Dose Time ABX Reporting Has patient been on IV antibiotics over the past 48 hours?: Yes Assessment/Plan - Problem List (1) Cellulitis Impression: Conclusion/Plan: 10/08, consult with ID, ID agree the plan to treat pt. continue to have vancomycin and Aztreonam elevate left leg lactic acid 1.5. pt had normal WBC, no fever or chill. pt denies pain on left lower extremity. order MITCHELL of left leg, pending CT of left leg reveals cellulitis, no fluid collection, no DVT, no necrotizing fasciitis. 10/07 add Cefepime to pt, pt has significantly infection in the left low extremity, pt is DM, will follow up blood culture although no fever, not elevated WBC, but infection is severe. Pt denies pain, and pt has intact motor and sensation at the distal of all toes. IV vancomycin and cefepime IV fluids Wound care Pain control Closely monitor for sepsis, worsening of NF Orthopedic consult for evaluation of left knee effusion, will follow up The patient presented to the emergency department with left lower extremity cellulitis. 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 He has had cellulitis of the same leg. This time the patient is not as ill on presentation however the cellulitis has become significantly worse just overnight and this is very concerning given the patient's history. 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 The x-ray of the prosthetic joint shows a small effusion and some soft tissue swelling. The patient's infection likely was triggered by his fall and scraping of his left knee which likely allowed bacteria to be introduced under the skin and this bacteria spread to the lower part of his leg. Given the patient's history and the involvement of his left knee with prosthetic joint it was felt that the patient would be best served getting IV antibiotics for 1-2 days and monitor closely in the hospital so that he does not again develop severe sepsis or septic shock. Plan: IV vancomycin IV fluids Wound care Pain control If patient spikes a fever we will get blood cultures Closely monitor for sepsis Orthopedic consult for evaluation of left knee effusion. (2) DM type 2, uncontrolled, with neuropathy Conclusion/Plan: 10/07 A1C is 6.7, glucose is well controlled continue insulin and slide scale Patient has history of diabetes and is managed without insulin just on metformin. The patient states that his blood sugars are usually between 120 and 140 at home. He is very meticulous with his diet. On presentation to the emergency department the patient's blood glucose is 137. Plan: We will hold the patient's metformin while he is hospitalized Patient will be started on sliding scale insulin Patient will be placed on a diabetic diet We will check hemoglobin A1c Patient needs tight control of his blood sugars given that he has ongoing cellulitis. (3) Atrial fibrillation Conclusion/Plan: 10/08 HR 88, well controlled HR continue Xarelto Patient has history of chronic atrial fibrillation and is on Xarelto at home. Patient appears to have rate controlled A. fib with pacemaker. Plan: Patient will be continued on his home dose of Xarelto The patient does not appear to be on any rate control medications and we will continue to monitor his rate and start a rate control agent if needed. (4) Hypertension Conclusion/Plan: Patient has a history of hypertension on presentation to the emergency department the patient's blood pressure is elevated. Patient blood pressure could be elevated secondary to pain in his left lower extremity. The patient will be continued on his home antihypertensive medication losartan but we will hold his Lasix as the patient appears to be on the dry side and given infection we would like to give him IV fluids. The patient does have a history of diastolic heart failure therefore we will need to be careful when doing this. (5) Back pain Conclusion/Plan: no further pain complaint. continue with home pain medication for pain control Patient has chronic low back pain and is on chronic opioids at home. The patient is on extended release morphine 30 mg 3 times daily. We will continue this while the patient is hospitalized in place him on as needed oxycodone. The patient will also be continued on his home dose of Flexeril. 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 The patient is on Ventolin inhaler, duo nebs and Advair at home. The patient currently appears to be stable and he is not having any wheezing or shortness of breath. Plan: Patient will be placed on duo nebs as needed while he is hospitalized We will place him on formoterol and budesonide twice daily in place of Advair. (7) BPH (benign prostatic hyperplasia) Conclusion/Plan: Patient has a history of BPH and is on Flomax and tolterodine at home. We will continue these medications while he is hospitalized. Currently he is not having any symptoms and appears to be stable. (8) pulmonary edema/infection. CXR reveals pulmonary edema/infection resume Lasix IV 4o mg daily continue Vancomycin and Aztreonam continue INH treatment, O2 supplement as needed (9) left knee effusion mild erythema and swelling at left knee, pt denies pain. consulted and called with orthopedics, will follow up Qualifiers: Site of cellulitis: extremity Site of cellulitis of extremity: lower extremity Laterality: left Qualified Code(s): L03.116 - Cellulitis of left lower limb
[2017-10-08 13:52] LABS: VANCOMYCIN,TROUGH 18.6 ug/mL (10.0-20.0)
[2017-10-08] MEDS: FLUTICASONE NASAL SPRAY NAS SCH (15:45)
[2017-10-08] MEDS: CYCLOBENZAPRINE 10 MG TABLET PO PRN (16:22)
[2017-10-08] MEDS: RIVAROXABAN 10 MG TABLET PO SCH (17:47)
[2017-10-08] MEDS: AZTREONAM 1 GM in SODIUM CHLORIDE 0.9% MINIBAG 100 ML IV SCH ×2 (17:47→20:43)
[2017-10-08] MEDS: IPRATROPIUM/ALBUTEROL 3 ML NEB INH PRN (19:49)
--- NOTE | 2017-10-08 20:25 | CONSULTATION NOTE ---
Referring Provider Consult Date: 10/08/17 Chief Complaint - Chief Complaint Chief Complaint: cellulitis left leg History of Present Illness - History Obtained From History obtained from: Patient who is a poor historian - History of Present Illness HPI Comment/Other: 72 year old male with bilateral total knee replacements presented with redness over the left leg. He is currently on Vancomycin. He has had a similar presentation in the past. He has not had any fever today. Blood cultures have been negative so far and the CT scan was negative for an abscess. History - Past Medical History Cardiovascular: reports: Congestive heart failure, Hypertension, High cholesterol, Atrial flutter, Atrial fibrillation Respiratory: reports: COPD, Pneumonia, Sleep apnea, Other (Pulmonary Fibrosis secondary to amiodarone) Neuro: reports: None Endocrine/Autoimmune: reports: Type 2 diabetes GI: reports: GERD : reports: Benign prostate hypertrophy HEENT: reports: None Psych: reports: None Musculoskeletal: reports: Chronic back pain, Other Derm: reports: Other MRSA Hx?: No Other Past Medical History: Here for LLE Cellulitis. - Past Surgical History Ortho: reports: Knee replacement Cardiovascular: reports: Pacemaker - Family & Social History Family History: Mother: (Father at 51 of CAD and Mom at 85 of CHF), CAD, Father: , CAD, Other family: CVA/TIA Living arrangement: At home Living Situation: With spouse/s.o. Social History Notes: The patient lives with his and [place], [place] on [address]. The patient and his moved would [facility] over 30 years ago from [place], [place]. 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 He and his along with her children moved [facility]. The patient has 4 children and 2 grandchildren all of whom live on [address]. The patient was previously a heavy smoker smoked 2+ packs per day but quit smoking in 1981 he smoked for about 15 years. The patient denies any current alcohol use and does not use any illicit drugs - POLST Patient has POLST: No POLST Status: Full Code Meds/Allgy - Home Medications Home Medications: Ambulatory Orders Medication Instructions Recorded Confirmed Fluticasone [Flonase] 2 sprays SANTHOSH DAILY 05/29/14 10/07/17 Fluticasone/Salmeterol [Advair 1 puffs IH BID 05/29/14 10/07/17 250-50 Diskus] Furosemide [Lasix] 40 mg PO .DAILY ON TUTHSASU 05/29/14 10/07/17 Ipratropium/Albuterol [Duoneb] 3 ml INH Q4H PRN 05/29/14 10/07/17 Pantoprazole Sodium [Protonix] 40 mg PO DAILY PM 05/29/14 10/07/17 Potassium Chloride [K-Dur] 20 meq PO DAILY 05/29/14 10/07/17 Pramipexole Di-HCl [Mirapex] 1.5 mg PO QPM 05/29/14 10/07/17 Tamsulosin [Flomax] 0.4 mg PO DAILY 06/22/14 10/07/17 Morphine Sulfate [Morphine Sulfate 30 mg PO TID 05/12/16 10/07/17 ER] Triamcinolone 0.1% Cream [Kenalog 1 applic TOP DAILY PRN 05/12/16 10/07/17 0.1% Cream] Albuterol Sulf [Ventolin Hfa 2 puffs INH Q4HR PRN 10/25/16 10/07/17 Inhaler] Losartan [Cozaar] 25 mg PO DAILY 10/25/16 10/07/17 Oxymetazoline HCl [Afrin] 1 spray NS DAILY 10/25/16 10/07/17 Rivaroxaban [Xarelto] 20 mg PO DAILY 10/25/16 10/07/17 Tolterodine [Detrol LA] 4 mg PO DAILY 10/25/16 10/07/17 metFORMIN [Glucophage] 1,000 mg PO BIDWM 10/25/16 10/07/17 Cyclobenzaprine [Flexeril] 5 mg PO TID PRN 07/22/17 10/07/17 Polyethylene Glycol 3350 [Miralax] 5.6 g PO DAILY 09/14/17 10/07/17 Pravastatin [Pravachol] 40 mg PO DAILY 09/14/17 10/07/17 Furosemide [Lasix] 40 mg PO .BID ON MOWEFR 10/07/17 10/07/17 Oxycodone HCl [Oxycodone HCl] 10 mg PO BID PRN 10/07/17 10/07/17 hydrOXYzine HCl [Hydroxyzine HCl] 50 mg PO DAILY 10/07/17 10/07/17 - Allergies Allergies/Adverse Reactions: Allergies Allergy/AdvReac Type Severity Reaction Status Date / Time Penicillins Allergy Intermediate Hives,itchi Verified 10/06/17 23:22 ng amiodarone Allergy Respiratory Verified 10/06/17 23:22 latex Allergy Rash Verified 10/06/17 23:39 rofecoxib [From Vioxx] Allergy Unknown Verified 10/06/17 23:22 cephalexin monohydrate * AdvReac Intermediate Itching Verified 10/06/17 23:22 [From Keflex] animal dander Allergy Unknown Uncoded 10/06/17 23:22 pollen Allergy Unknown Uncoded 10/06/17 23:22 Exam - Vital Signs Vital Signs: Vital Signs x48h Temp Pulse Pulse Resp BP Pulse Ox 10/08/17 19:49 77 12 10/08/17 15:20 37.1 C 88 20 103/73 94 10/08/17 13:30 37.8 C H 84 20 125/77 91 L - Physical Exam General Appearance: positive: No acute distress Eyes Bilateral: positive: Normal inspection Peripheral Pulses: positive: 0, Other (left foot is warm but great toe is cool) Skin: positive: Other (Skin over the anterior tibia is indurated and very erythematous. The erythema diminishes around the ankle and does not go into the knee) Extremities: positive: Other (There is swelling of the whole leg.) Neurologic/Psychiatric: positive: Oriented x3 Conclusion/Plan - Diagnosis Diagnosis: Cellulitis left leg - Plan Plan: I believe that we should try to obtain an MRI or a bone scan to evaluate for osteomyelitis. He also needs a vascular work up. His toes are cool but the leg and foot is warm. Willl follow with you. - Lab Results Lab results reviewed: Yes Fish Bones: 10/08/17 05:20 10/08/17 05:20
[2017-10-08] MEDS: ATORVASTATIN 40 MG TABLET PO SCH (20:44)
[2017-10-08] MEDS ORDERED: ZINC OXIDE 20% OINT 28.35 GM TUBE TOP PRN (22:18)
[2017-10-08] MEDS: TEMAZEPAM 15 MG CAPSULE PO PRN (23:04)
[2017-10-09] MEDS: LORazepam 2 MG/ML VIAL IVP PRN (01:36)
[2017-10-09] MEDS: SODIUM CHLORIDE FLUSH 0.9% 10 ML SYRINGE IVP PRN (01:37)
[2017-10-09] MEDS: oxyCODONE 5 MG TABLET PO PRN ×2 (03:43→17:08)
[2017-10-09] MEDS: AZTREONAM 1 GM in SODIUM CHLORIDE 0.9% MINIBAG 100 ML IV SCH ×4 (04:12→20:52)
[2017-10-09] MEDS: VANCOMYCIN INJ 1 GM in SODIUM CHLORIDE 0.9% 250 ML IV SCH ×3 (06:08→21:45)
[2017-10-09] MEDS: PANTOPRAZOLE 40 MG TABLET PO SCH (06:09)
[2017-10-09] MEDS: MORPHINE ER 15 MG TABLET PO SCH ×3 (06:09→20:51)
[2017-10-09 06:34] LABS: BASOPHILS % (AUTO) 0.5 %; EOSINOPHILS # (AUTO) 0.4 10^3/uL (0.0-0.7); EOSINOPHILS % (AUTO) 5.8 %; HGB - HEMOGLOBIN 12.8 g/dL (14.0-18.0); LYMPHOCYTES # (AUTO) 0.7 10^3/uL (1.5-3.5); LYMPHOCYTES % (AUTO) 10.8 %; MEAN CORPUSCULAR HEMOGLOBIN 28.7 pg (27.0-31.0); MEAN CORPUSCULAR HGB CONC 32.9 g/dL (32.0-36.0); MEAN CORPUSCULAR VOLUME 87.1 fL (80.0-94.0); MEAN PLATELET VOLUME 9.1 fL (7.4-11.4); MONOCYTES # (AUTO) 0.8 10^3/uL (0.0-1.0); NEUTROPHILS # (AUTO) 4.9 10^3/uL (1.5-6.6); NEUTROPHILS % (AUTO) 70.9 %; PLT - PLATELET COUNT 130 10^3/uL (130-450); RED BLOOD COUNT 4.46 10^6/uL (4.70-6.10); RED CELL DISTRIBUTION WIDTH 15.2 % (12.0-15.0); WHITE BLOOD COUNT 6.9 x10^3/uL (4.8-10.8)
[2017-10-09 06:44] LABS: CALCIUM 8.7 mg/dL (8.5-10.3); CREATININE 0.9 mg/dL (0.6-1.2)
[2017-10-09] MEDS: BUDESONIDE 0.5 MG/2 ML NEB INH SCH ×2 (07:15→20:54)
[2017-10-09] MEDS: FORMOTEROL FUMARATE NEB 20 MCG/2 ML INH SCH ×2 (07:15→20:54)
[2017-10-09] MEDS: TOLTERODINE LA 2 MG CAPSULE PO SCH (08:48)
[2017-10-09] MEDS: SACCHAROMYCES BOULARDII 250 MG CAPSULE PO SCH ×2 (08:48→17:08)
[2017-10-09] MEDS: INSULIN ASPART 300 UNIT/3 ML PEN SUBQ SCH ×4 (08:48→21:07)
[2017-10-09] MEDS: LOSARTAN 50 MG TABLET PO SCH (08:49)
[2017-10-09] MEDS: TAMSULOSIN 0.4 MG CAPSULE PO SCH (08:49)
[2017-10-09] MEDS: FUROSEMIDE 40 MG/4 ML VIAL IVP SCH (08:49)
[2017-10-09] MEDS: SODIUM CHLORIDE FLUSH 0.9% 10 ML SYRINGE IVP SCH ×3 (08:49→17:09)
[2017-10-09] MEDS: POLYETHYLENE GLYCOL 3350 17 GM PACKET PO SCH (08:50)
[2017-10-09] MEDS: FLUTICASONE NASAL SPRAY NAS SCH (08:51)
--- NOTE | 2017-10-09 09:22 | Ultrasound Report ---
Procedure Date: 10/09/2017 Accession Number: [id number] / [id number] Procedure: US - Duplex Ext Veins Left CPT Code: FULL RESULT: EXAM: LEFT LOWER EXTREMITY VENOUS ULTRASOUND EXAM DATE: 10/09/2017 08:11 AM. CLINICAL HISTORY: DVT, fluid collection/abscess. Left foot cool to touch. COMPARISON: None. TECHNIQUE: Real-time sonographic vascular imaging was performed by the cotton expert through the lower extremity utilizing both color-flow and Doppler spectral analysis. Multiple roofing sales representative static images were saved for review. FINDINGS: Common Femoral Vein (CFV): Normal. CFV-GSV Junction: Normal. Profunda Femoral Vein (PFV): Normal. Femoral Vein (FV) Prox: Normal. Femoral Vein (FV) Mid: Normal. Femoral Vein (FV) Dist: Normal. Popliteal Vein: Normal. Posterior Tibial Veins: Normal. Peroneal Veins: Normal. Other: None. IMPRESSION: No evidence for deep venous thrombosis in the left lower extremity. RADIA
--- NOTE | 2017-10-09 13:24 | Ultrasound Report ---
Procedure Date: 10/09/2017 Accession Number: [id number] / [id number] Procedure: US - Duplex Lwr Ext Arterial LT CPT Code: FULL RESULT: EXAM: LEFT LOWER EXTREMITY ARTERIAL DOPPLER ULTRASOUND EXAM DATE: 10/09/2017 07:49 AM. CLINICAL HISTORY: Cool left foot. COMPARISON: None. TECHNIQUE: Real-time sonographic vascular imaging was performed by the compliance technician, utilizing color-flow, Doppler flow, and spectral analysis. Multiple medicare sales representative static images were saved for review. FINDINGS: Predominantly monophasic waveforms are seen within the left lower extremity with an arrhythmia noted on multiple tracings. However, no hemodynamically significant stenosis is seen on color Doppler images and there is no significant increase in velocity to suggest a high-grade stenosis. Left Leg: FIRE HYDRANT OPERATOR: PSV 164 cm/sec. Monophasic waveform. PSFA: PSV 156 cm/sec. Monophasic waveform. MSFA: PSV 99 cm/sec. Biphasic waveform. DSFA: PSV 151 cm/sec. Monophasic waveform. PFA: PSV 53 cm/sec. Monophasic waveform. POP: PSV 103 cm/sec. Monophasic waveform. BRET: PSV 40 cm/sec. Monophasic waveform. SATELLITE DISH TECHNICIAN: PSV 105 cm/sec. Monophasic waveform. PER: PSV 135 cm/sec. Monophasic waveform. DPA: PSV 115 cm/sec. Monophasic waveform. Brachial Artery Systolic Pressure: Right Unavailable. Left 132.72. Posterior tibial Artery Systolic Pressure: Right 145/87. Left 135/68. Ankle/Arm Index: Right 1.0. Left 1.0. IMPRESSION: No hemodynamically significant stenosis left lower extremity arterial system. RADIA
--- NOTE | 2017-10-09 13:32 | PROVIDER PROGRESS NOTE ---
Subjective - Prog Note Date Prog Note Date: 10/09/17 - Subjective Pt reports feeling: Improved Subjective: pt report he feel his cellulitis is better and improved, the swelling is reduced , and he feel better. pt denies pain at left low extremity. Intact sensation and motor on distal toes. pt denies fever, chill, cough, SOB, chest pain. Current Medications - Current Medications Current Medications: Active Medications Acetaminophen (Tylenol) 650 mg PO Q4HR PRN PRN Reason: Pain 1 to 4 Last Admin: 10/08/17 13:47 Dose: 650 mg Albuterol/Ipratropium (Duoneb) 3 ml INH Q4HR PRN PRN Reason: Wheezing Last Admin: 10/08/17 19:49 Dose: 3 ml Atorvastatin Calcium (Lipitor) 40 mg PO QPM BO Last Admin: 10/08/17 20:44 Dose: 40 mg Budesonide (Pulmicort) 0.5 mg INH RTBID BO Last Admin: 10/09/17 07:15 Dose: 0.5 mg Cyclobenzaprine HCl (Flexeril) 10 mg PO TID PRN PRN Reason: Spasms Last Admin: 10/08/17 16:22 Dose: 10 mg Fluticasone Propionate (Flonase) 0 sprays SANTHOSH DAILY BO Last Admin: 10/09/17 08:51 Dose: 1 spr Formoterol Fumarate (Perforomist) 20 mcg INH RTBID BO Last Admin: 10/09/17 07:15 Dose: 20 mcg Furosemide (Lasix Inj 40 Mg Vial) 40 mg IVP DAILY BO Last Admin: 10/09/17 08:49 Dose: 40 mg Hydroxyzine Pamoate (Vistaril) 25 mg PO QPM PRN PRN Reason: Insomnia Vancomycin HCl 1 gm/ Sodium (Chloride) 250 mls @ 167 mls/hr IV Q8H BO PRN Reason: Protocol Last Admin: 10/09/17 13:24 Dose: 167 mls/hr Aztreonam 1 gm/ Sodium (Chloride) 100 mls @ 200 mls/hr IV Q6H BO Last Infusion: 10/09/17 09:50 Dose: Infused Insulin Aspart (Novolog) 1 - 5 unit SUBQ 0800,1200,1700,2100 BO PRN Reason: Protocol Last Admin: 10/09/17 11:48 Dose: 1 unit Lorazepam (Ativan Inj (Vial)) 0.5 mg IVP Q2H PRN PRN Reason: Anxiety Last Admin: 10/09/17 01:36 Dose: 0.5 mg Losartan Potassium (Cozaar) 25 mg PO DAILY [facility] Last Admin: 10/09/17 08:49 Dose: 25 mg Morphine Sulfate () 30 mg PO TID [facility] Last Admin: 10/09/17 13:27 Dose: 30 mg Multi-Ingredient Ointment (Zinc Oxide) 1 applic TOP PRN PRN PRN Reason: Skin Care Last Admin: 10/08/17 23:03 Dose: 1 applic Ondansetron HCl (Zofran Inj) 4 mg IVP Q6HR PRN PRN Reason: Nausea / Vomiting Oxycodone HCl (Roxicodone) 5 mg PO Q4HR PRN PRN Reason: Pain 5 to 7 Last Admin: 10/08/17 13:50 Dose: 5 mg Oxycodone HCl (Roxicodone) 10 mg PO Q4HR PRN PRN Reason: Pain 8 to 10 Last Admin: 10/09/17 03:43 Dose: 10 mg Pantoprazole Sodium (Protonix) 40 mg PO QDAC [facility] Last Admin: 10/09/17 06:09 Dose: 40 mg Polyethylene Glycol (Miralax) 17 gm PO DAILY [facility] Last Admin: 10/09/17 08:50 Dose: Not Given Prochlorperazine Edisylate (Compazine Inj) 10 mg IVP Q6HR PRN PRN Reason: Nausea / Vomiting Promethazine HCl (Phenergan Inj) 25 mg IM Q6HR PRN PRN Reason: Nausea / Vomiting Rivaroxaban (Xarelto) 20 mg PO 1700 [facility] Last Admin: 10/08/17 17:47 Dose: 20 mg Saccharomyces Boulardii (Florastor) 250 mg PO BIDWM [facility] Last Admin: 10/09/17 08:48 Dose: 250 mg Sodium Chloride (Normal Saline Flush 0.9%) 10 ml IVP PRN PRN PRN Reason: NEEDED PER PROVIDER ORDERS Last Admin: 10/09/17 01:37 Dose: 10 ml Sodium Chloride (Normal Saline Flush 0.9%) 10 ml IVP 0100,0900,1700 [facility] Last Admin: 07/29/18 08:49 Dose: 10 ml Tamsulosin HCl (Flomax) 0.4 mg PO DAILY [facility] Last Admin: 10/09/17 08:49 Dose: 0.4 mg Temazepam (Restoril) 15 mg PO QPM PRN PRN Reason: Insomnia Last Admin: 10/08/17 23:04 Dose: 15 mg Tolterodine Tartrate (Detrol La) 4 mg PO DAILY [facility] Last Admin: 10/09/17 08:48 Dose: 4 mg Fluticasone [Flonase] 2 sprays SANTHOSH DAILY 05/29/14 Fluticasone/Salmeterol [Advair 250-50 Diskus] 1 puffs IH BID 05/29/14 Furosemide [Lasix] 40 mg PO .DAILY ON TUTASU 05/29/14 Ipratropium/Albuterol [Duoneb] 3 ml INH Q4H PRN 05/29/14 Pantoprazole Sodium [Protonix] 40 mg PO DAILY PM 05/29/14 Potassium Chloride [K-Dur] 20 meq PO DAILY 05/29/14 Pramipexole Di-HCl [Mirapex] 1.5 mg PO QPM 05/29/14 Tamsulosin [Flomax] 0.4 mg PO DAILY 06/22/14 Morphine Sulfate [Morphine Sulfate ER] 30 mg PO TID 05/12/16 Triamcinolone 0.1% Cream [Kenalog 0.1% Cream] 1 applic TOP DAILY PRN 05/12/16 Albuterol Sulf [Ventolin Hfa Inhaler] 2 puffs INH Q4HR PRN 10/25/16 Losartan [Cozaar] 25 mg PO DAILY 10/25/16 Oxymetazoline HCl [Afrin] 1 spray NS DAILY 10/25/16 Rivaroxaban [Xarelto] 20 mg PO DAILY 10/25/16 Tolterodine [Detrol LA] 4 mg PO DAILY 10/25/16 metFORMIN [Glucophage] 1,000 mg PO BIDWM 10/25/16 Cyclobenzaprine [Flexeril] 5 mg PO TID PRN 07/22/17 Polyethylene Glycol 3350 [Miralax] 5.6 g PO DAILY 09/14/17 Pravastatin [Pravachol] 40 mg PO DAILY 09/14/17 Furosemide [Lasix] 40 mg PO .BID ON MOWEFR 10/07/17 Oxycodone HCl [Oxycodone HCl] 10 mg PO BID PRN 10/07/17 hydrOXYzine HCl [Hydroxyzine HCl] 50 mg PO DAILY 10/07/17 Objective - Vital Signs/Intake & Output Reviewed Vital Signs: Yes Vital Signs: Vital Signs x48h Temp Pulse Pulse Resp BP Pulse Ox 10/09/17 08:00 37.1 C 96 14 132/72 H 95 10/09/17 07:20 75 16 Intake & Output: Intake & Output 10/06/17 10/07/17 10/08/17 10/09/17 23:59 23:59 23:59 23:59 Intake Total 3883.000 2014.717 990 Output Total 951 2150 Balance 3883.000 1063.717 -1160 - Objective General Appearance: positive: No acute distress, Alert. negative: Lethargic Eyes Bilateral: positive: Normal inspection, PERRL, No lid inflammation, Conjunctivae nml ENT: positive: ENT inspection nml, Pharynx nml, No signs of dehydration. negative: Purulent nasal drainage, Pharyngeal erythema, Oral lesions Neck: positive: Nml inspection, Thyroid nml, No JVD, Trachea midline. negative : Thyromegaly, Lymphadenopathy (R), Lymphadenopathy (L), Stiff neck, Swelling/ bruising, Tracheal deviation Respiratory: positive: Chest non-tender, No respiratory distress, Breath sounds nml. negative: Wheezes, Rales, Rhonchi Cardiovascular: positive: Regular rate & rhythm, No murmur, No gallop. negative : Irregularly irregular, Extrasystoles, Tachycardia, Bradycardia, JVD present, Systolic murmur, Diastolic murmur Peripheral Pulses: 2+ Radial (R), 2+ Radial (L), 2+ Dorsalis pedis (R), 2+ Dorsalis pedis (L) Abdomen: positive: Non-tender, No organomegaly, Nml bowel sounds, No distention. negative: Tenderness, Guarding, Rebound Back: negative: Nml inspection, CVA tenderness (R), CVA tenderness (L) Skin: positive: Warm, Dry, Skin rash. negative: Cyanosis, Diaphoresis, Pallor Extremities: positive: Non-tender, Full ROM. negative: Calf tenderness, Joint swelling, Vibha's sign/cords Neurologic/Psychiatric: positive: Oriented x3, Sensation nml, Mood/affect nml. negative: Weakness, Sensory loss, Facial droop, Slurred/abnml speech, Depressed mood/affect - Lab Results Fish Bones: 10/09/17 06:00 10/09/17 06:00 Other Labs: Lab Results x24hrs 10/09/17 10/09/17 10/09/17 Range/Units 11:25 07:43 06:00 WBC (4.8-10.8) x10^3/uL RBC (4.70-6.10) 10^6/uL Hgb (14.0-18.0) g/dL Hct (42.0-52.0) % MCV (80.0-94.0) fL MCH (27.0-31.0) pg MCHC (32.0-36.0) g/dL RDW (12.0-15.0) % Plt Count (130-450) 10^3/uL MPV (7.4-11.4) fL Neut # (Auto) (1.5-6.6) 10^3/uL Lymph # (Auto) (1.5-3.5) 10^3/uL [place] # (Auto) (0.0-1.0) 10^3/uL Eos # (Auto) (0.0-0.7) 10^3/uL Baso # (Auto) (0.0-0.1) 10^3/uL Absolute Nucleated RBC x10^3/uL Nucleated RBC % /100WBC Sodium 138 (135-145) mmol/L Potassium 4.1 (3.5-5.0) mmol/L Chloride 103 (101-111) mmol/L Carbon Dioxide 29 (21-32) mmol/L Anion Gap 6.0 (6-13) BUN 16 (6-20) mg/dL Creatinine 0.9 (0.6-1.2) mg/dL Estimated GFR (MDRD) 83 L (>89) Glucose 108 H (70-100) mg/dL POC Whole Bld Glucose 141 H 73 (70 - 100) mg/dL Calcium 8.7 (8.5-10.3) mg/dL Last Dose Date Last Dose Time Vancomycin Trough (10.0-20.0) ug/mL 07/10/08/17 10/08/17 Range/Units 06:00 20:21 16:34 WBC 6.9 (4.8-10.8) x10^3/uL RBC 4.46 L (4.70-6.10) 10^6/uL Hgb 12.8 L (14.0-18.0) g/dL Hct 38.9 L (42.0-52.0) % MCV 87.1 (80.0-94.0) fL MCH 28.7 (27.0-31.0) pg MCHC 32.9 (32.0-36.0) g/dL RDW 15.2 H (12.0-15.0) % Plt Count 130 (130-450) 10^3/uL MPV 9.1 (7.4-11.4) fL Neut # (Auto) 4.9 (1.5-6.6) 10^3/uL Lymph # (Auto) 0.7 L (1.5-3.5) 10^3/uL [place] # (Auto) 0.8 (0.0-1.0) 10^3/uL Eos # (Auto) 0.4 (0.0-0.7) 10^3/uL Baso # (Auto) 0.0 (0.0-0.1) 10^3/uL Absolute Nucleated RBC 0.00 x10^3/uL Nucleated RBC % 0.0 /100WBC Sodium (135-145) mmol/L Potassium (3.5-5.0) mmol/L Chloride (101-111) mmol/L Carbon Dioxide (21-32) mmol/L Anion Gap (6-13) BUN (6-20) mg/dL Creatinine (0.6-1.2) mg/dL Estimated GFR (MDRD) (>89) Glucose (70-100) mg/dL POC Whole Bld Glucose 72 135 H (70 - 100) mg/dL Calcium (8.5-10.3) mg/dL Last Dose Date Last Dose Time Vancomycin Trough (10.0-20.0) ug/mL 10/08/17 Range/Units 13:30 WBC (4.8-10.8) x10^3/uL RBC (4.70-6.10) 10^6/uL Hgb (14.0-18.0) g/dL Hct (42.0-52.0) % MCV (80.0-94.0) fL MCH (27.0-31.0) pg MCHC (32.0-36.0) g/dL RDW (12.0-15.0) % Plt Count (130-450) 10^3/uL MPV (7.4-11.4) fL Neut # (Auto) (1.5-6.6) 10^3/uL Lymph # (Auto) (1.5-3.5) 10^3/uL [place] # (Auto) (0.0-1.0) 10^3/uL Eos # (Auto) (0.0-0.7) 10^3/uL Baso # (Auto) (0.0-0.1) 10^3/uL Absolute Nucleated RBC x10^3/uL Nucleated RBC % /100WBC Sodium (135-145) mmol/L Potassium (3.5-5.0) mmol/L Chloride (101-111) mmol/L Carbon Dioxide (21-32) mmol/L Anion Gap (6-13) BUN (6-20) mg/dL Creatinine (0.6-1.2) mg/dL Estimated GFR (MDRD) (>89) Glucose (70-100) mg/dL POC Whole Bld Glucose (70 - 100) mg/dL Calcium (8.5-10.3) mg/dL Last Dose Date 10/08/17 Last Dose Time 0651 Vancomycin Trough 18.6 (10.0-20.0) ug/mL ABX Reporting Has patient been on IV antibiotics over the past 48 hours?: Yes Assessment/Plan - Problem List (1) Cellulitis Impression: Conclusion/Plan: 10/09, pt slightly improved in his cellulitis, reduced swelling, slight reduced erythema. continue Vancomycin and Aztreonam per ID recommends rise left leg MITCHELL and bone scan are pending, follow up 10/08, consult with ID, ID agree the plan to treat pt. continue to have vancomycin and Aztreonam elevate left leg lactic acid 1.5. pt had normal WBC, no fever or chill. pt denies pain on left lower extremity. order MITCHELL of left leg, pending CT of left leg reveals cellulitis, no fluid collection, no DVT, no necrotizing fasciitis. 10/07 add Cefepime to pt, pt has significantly infection in the left low extremity, pt is DM, will follow up blood culture although no fever, not elevated WBC, but infection is severe. Pt denies pain, and pt has intact motor and sensation at the distal of all toes. IV vancomycin and cefepime IV fluids Wound care Pain control Closely monitor for sepsis, worsening of NF Orthopedic consult for evaluation of left knee effusion, will follow up The patient presented to the emergency department with left lower extremity cellulitis. 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 He has had cellulitis of the same leg. This time the patient is not as ill on presentation however the cellulitis has become significantly worse just overnight and this is very concerning given the patient's history. 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 The x-ray of the prosthetic joint shows a small effusion and some soft tissue swelling. The patient's infection likely was triggered by his fall and scraping of his left knee which likely allowed bacteria to be introduced under the skin and this bacteria spread to the lower part of his leg. Given the patient's history and the involvement of his left knee with prosthetic joint it was felt that the patient would be best served getting IV antibiotics for 1-2 days and monitor closely in the hospital so that he does not again develop severe sepsis or septic shock. Plan: IV vancomycin IV fluids Wound care Pain control If patient spikes a fever we will get blood cultures Closely monitor for sepsis Orthopedic consult for evaluation of left knee effusion. (2) DM type 2, uncontrolled, with neuropathy Conclusion/Plan: 10/07 A1C is 6.7, glucose is well controlled continue insulin and slide scale Patient has history of diabetes and is managed without insulin just on metformin. The patient states that his blood sugars are usually between 120 and 140 at home. He is very meticulous with his diet. On presentation to the emergency department the patient's blood glucose is 137. Plan: We will hold the patient's metformin while he is hospitalized Patient will be started on sliding scale insulin Patient will be placed on a diabetic diet We will check hemoglobin A1c Patient needs tight control of his blood sugars given that he has ongoing cellulitis. (3) Atrial fibrillation Conclusion/Plan: 10/08 HR 88, well controlled HR continue Xarelto Patient has history of chronic atrial fibrillation and is on Xarelto at home. Patient appears to have rate controlled A. fib with pacemaker. Plan: Patient will be continued on his home dose of Xarelto The patient does not appear to be on any rate control medications and we will continue to monitor his rate and start a rate control agent if needed. (4) Hypertension Conclusion/Plan: Patient has a history of hypertension on presentation to the emergency department the patient's blood pressure is elevated. Patient blood pressure could be elevated secondary to pain in his left lower extremity. The patient will be continued on his home antihypertensive medication losartan but we will hold his Lasix as the patient appears to be on the dry side and given infection we would like to give him IV fluids. The patient does have a history of diastolic heart failure therefore we will need to be careful when doing this. (5) Back pain Conclusion/Plan: no further pain complaint. continue with home pain medication for pain control Patient has chronic low back pain and is on chronic opioids at home. The patient is on extended release morphine 30 mg 3 times daily. We will continue this while the patient is hospitalized in place him on as needed oxycodone. The patient will also be continued on his home dose of Flexeril. 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 The patient is on Ventolin inhaler, duo nebs and Advair at home. The patient currently appears to be stable and he is not having any wheezing or shortness of breath. Plan: Patient will be placed on duo nebs as needed while he is hospitalized We will place him on formoterol and budesonide twice daily in place of Advair. (7) BPH (benign prostatic hyperplasia) Conclusion/Plan: Patient has a history of BPH and is on Flomax and tolterodine at home. We will continue these medications while he is hospitalized. Currently he is not having any symptoms and appears to be stable. (8) pulmonary edema/infection. stable, room air 95% sats CXR reveals pulmonary edema/infection resume Lasix IV 4o mg daily continue Vancomycin and Aztreonam continue INH treatment, O2 supplement as needed (9) left knee effusion 10/09 followup orthopedics, mild erythema and swelling at left knee, pt denies pain. consulted and called with orthopedics, will follow up Qualifiers: Site of cellulitis: extremity Site of cellulitis of extremity: lower extremity Laterality: left Qualified Code(s): L03.116 - Cellulitis of left lower limb
[2017-10-09] MEDS: RIVAROXABAN 10 MG TABLET PO SCH (17:09)
--- NOTE | 2017-10-09 17:21 | PROVIDER PROGRESS NOTE ---
Subjective - Prog Note Date Prog Note Date: 10/09/17 Prog Note Time: 05:21 - Subjective Pt reports feeling: Improved Objective - Vital Signs/Intake & Output Vital Signs: Vital Signs x48h Temp Pulse Resp BP Pulse Ox 10/09/17 15:34 36.9 C 80 20 122/71 98 Intake & Output: Intake & Output 10/06/17 10/07/17 10/08/17 10/09/17 23:59 23:59 23:59 23:59 Intake Total 3883.000 2014.717 1340 Output Total 951 2150 Balance 3883.000 1063.717 -810 - Objective General Appearance: positive: No acute distress Skin: positive: Other (Still very indurated and erythematous) Extremities: positive: Calf tenderness, Other (Does not extend to knee. really pretty unchanged from yesterday) - Lab Results Fish Bones: 10/09/17 06:00 10/09/17 06:00 Other Labs: Lab Results x24hrs 10/09/17 10/09/17 10/09/17 Range/Units 16:36 11:25 07:43 WBC (4.8-10.8) x10^3/uL RBC (4.70-6.10) 10^6/uL Hgb (14.0-18.0) g/dL Hct (42.0-52.0) % MCV (80.0-94.0) fL MCH (27.0-31.0) pg MCHC (32.0-36.0) g/dL RDW (12.0-15.0) % Plt Count (130-450) 10^3/uL MPV (7.4-11.4) fL Neut # (Auto) (1.5-6.6) 10^3/uL Lymph # (Auto) (1.5-3.5) 10^3/uL [place] # (Auto) (0.0-1.0) 10^3/uL Eos # (Auto) (0.0-0.7) 10^3/uL Baso # (Auto) (0.0-0.1) 10^3/uL Absolute Nucleated RBC x10^3/uL Nucleated RBC % /100WBC Sodium (135-145) mmol/L Potassium (3.5-5.0) mmol/L Chloride (101-111) mmol/L Carbon Dioxide (21-32) mmol/L Anion Gap (6-13) BUN (6-20) mg/dL Creatinine (0.6-1.2) mg/dL Estimated GFR (MDRD) (>89) Glucose (70-100) mg/dL POC Whole Bld Glucose 98 141 H 73 (70 - 100) mg/dL Calcium (8.5-10.3) mg/dL 10/09/17 10/09/17 10/08/17 Range/Units 06:00 06:00 20:21 WBC 6.9 (4.8-10.8) x10^3/uL RBC 4.46 L (4.70-6.10) 10^6/uL Hgb 12.8 L (14.0-18.0) g/dL Hct 38.9 L (42.0-52.0) % MCV 87.1 (80.0-94.0) fL MCH 28.7 (27.0-31.0) pg MCHC 32.9 (32.0-36.0) g/dL RDW 15.2 H (12.0-15.0) % Plt Count 130 (130-450) 10^3/uL MPV 9.1 (7.4-11.4) fL Neut # (Auto) 4.9 (1.5-6.6) 10^3/uL Lymph # (Auto) 0.7 L (1.5-3.5) 10^3/uL [place] # (Auto) 0.8 (0.0-1.0) 10^3/uL Eos # (Auto) 0.4 (0.0-0.7) 10^3/uL Baso # (Auto) 0.0 (0.0-0.1) 10^3/uL Absolute Nucleated RBC 0.00 x10^3/uL Nucleated RBC % 0.0 /100WBC Sodium 138 (135-145) mmol/L Potassium 4.1 (3.5-5.0) mmol/L Chloride 103 (101-111) mmol/L Carbon Dioxide 29 (21-32) mmol/L Anion Gap 6.0 (6-13) BUN 16 (6-20) mg/dL Creatinine 0.9 (0.6-1.2) mg/dL Estimated GFR (MDRD) 83 L (>89) Glucose 108 H (70-100) mg/dL POC Whole Bld Glucose 72 (70 - 100) mg/dL Calcium 8.7 (8.5-10.3) mg/dL Assessment/Plan - Problem List (1) Cellulitis Qualifiers: Site of cellulitis: extremity Site of cellulitis of extremity: lower extremity Laterality: left Qualified Code(s): L03.116 - Cellulitis of left lower limb Assessment/Plan - Problem List (1) Cellulitis Assessment/Plan: Plan to continue antibiotics for now. I believe that some of this is due to venous stasis. He reports that he thinks the infection or redness was present on the right leg the last time her was ill. He has a good appetite and we will follow along. He does not wish for his TKA to be removed "ever". Qualifiers: Site of cellulitis: extremity Site of cellulitis of extremity: lower extremity Laterality: left Qualified Code(s): L03.116 - Cellulitis of left lower limb - Current Meds Current Meds: Current Medications Generic Name Dose Route Start Last Admin Trade Name Freq PRN Reason Stop Dose Admin Acetaminophen 650 mg 10/07/17 00:37 10/08/17 13:47 Tylenol PO 650 mg Q4HR PRN Administration Pain 1 to 4 Albuterol/Ipratropium 3 ml 10/07/17 00:37 10/08/17 19:49 Duoneb INH 3 ml Q4HR PRN Administration Wheezing Atorvastatin Calcium 40 mg 10/07/17 01:00 10/08/17 20:44 Lipitor PO 40 mg QPM BO Administration Budesonide 0.5 mg 10/07/17 01:00 10/09/17 07:15 Pulmicort INH 0.5 mg RTBID BO Administration Cyclobenzaprine HCl 10 mg 10/07/17 00:37 10/08/17 16:22 Flexeril PO 10 mg TID PRN Administration Spasms Fluticasone Propionate 0 sprays 10/07/17 01:00 10/09/17 08:51 Flonase SANTHOSH 1 spr DAILY BO Administration Formoterol Fumarate 20 mcg 10/07/17 01:00 10/09/17 07:15 Perforomist INH 20 mcg RTBID BO Administration Furosemide 40 mg 10/08/17 09:00 10/09/17 08:49 Lasix Inj 40 Mg Vial IVP 40 mg DAILY BO Administration Vancomycin HCl 1 gm/ Sodium 250 mls @ 167 mls/hr 10/07/17 22:00 10/09/17 15: 31 Chloride IV Infused Q8H BO Infusion Protocol Aztreonam 1 gm/ Sodium 100 mls @ 200 mls/hr 10/08/17 16:00 10/09/17 16:49 Chloride IV Infused Q6H BO Infusion Insulin Aspart 1 - 5 unit 10/07/17 08:00 10/09/17 16:48 Novolog SUBQ Not Given 0800,1200,1700,2100 [facility] Protocol Lorazepam 0.5 mg 10/08/17 10:21 10/09/17 01:36 Ativan Inj (Vial) IVP 0.5 mg Q2H PRN Administration Anxiety Losartan Potassium 25 mg 10/07/17 01:00 10/09/17 08:49 Cozaar PO 25 mg DAILY BO Administration Morphine Sulfate 30 mg 10/07/17 08:30 10/09/17 13:27 PO 30 mg TID BO Administration Multi-Ingredient Ointment 1 applic 10/08/17 22:18 10/08/17 23:03 Zinc Oxide TOP 1 applic PRN PRN Administration Skin Care Oxycodone HCl 5 mg 10/07/17 00:37 10/09/17 17:08 Roxicodone PO 5 mg Q4HR PRN Administration Pain 5 to 7 Oxycodone HCl 10 mg 10/07/17 00:37 10/09/17 03:43 Roxicodone PO 10 mg Q4HR PRN Administration Pain 8 to 10 Pantoprazole Sodium 40 mg 10/07/17 07:00 10/09/17 06:09 Protonix PO 40 mg QDAC BO Administration Polyethylene Glycol 17 gm 10/07/17 09:00 10/09/17 08:50 Miralax PO Not Given DAILY [facility] Rivaroxaban 20 mg 10/07/17 01:00 10/09/17 17:09 Xarelto PO 20 mg 1700 BO Administration Saccharomyces Boulardii 250 mg 10/07/17 08:00 10/09/17 17:08 Florastor PO 250 mg BIDWM BO Administration Sodium Chloride 10 ml 10/07/17 00:37 10/09/17 01:37 Normal Saline Flush 0.9% IVP 10 ml PRN PRN Administration NEEDED PER PROVIDER ORDERS Sodium Chloride 10 ml 10/07/17 01:00 10/09/17 17:09 Normal Saline Flush 0.9% IVP Not Given 0100,0900,1700 BO Tamsulosin HCl 0.4 mg 10/07/17 01:00 10/09/17 08:49 Flomax PO 0.4 mg DAILY BO Administration Temazepam 15 mg 10/07/17 00:37 10/08/17 23:04 Restoril PO 15 mg QPM PRN Administration Insomnia Tolterodine Tartrate 4 mg 10/07/17 01:00 10/09/17 08:48 Detrol La PO 4 mg DAILY BO Administration - Lab Results Lab results reviewed: Yes Fish Bones: 10/09/17 06:00 10/09/17 06:00
[2017-10-09] MEDS: ATORVASTATIN 40 MG TABLET PO SCH (20:52)
[2017-10-09] MEDS: TEMAZEPAM 15 MG CAPSULE PO PRN (23:44)
[2017-10-10] MEDS ORDERED: SODIUM CHLORIDE 0.9% 500 ML IV PRN (00:40)
[2017-10-10] MEDS: SODIUM CHLORIDE FLUSH 0.9% 10 ML SYRINGE IVP SCH ×4 (01:18→23:45)
[2017-10-10] MEDS: LORazepam 2 MG/ML VIAL IVP PRN (01:25)
[2017-10-10] MEDS: HYDROCORTISONE 1% CREAM 28 GM TUBE TOP SCH ×3 (01:30→21:03)
[2017-10-10] MEDS: AZTREONAM 1 GM in SODIUM CHLORIDE 0.9% MINIBAG 100 ML IV SCH ×4 (04:46→21:01)
[2017-10-10] MEDS: VANCOMYCIN INJ 1 GM in SODIUM CHLORIDE 0.9% 250 ML IV SCH ×3 (05:29→21:43)
[2017-10-10] MEDS: MORPHINE ER 15 MG TABLET PO SCH ×3 (05:57→21:01)
[2017-10-10] MEDS: PANTOPRAZOLE 40 MG TABLET PO SCH (06:00)
[2017-10-10 06:06] LABS: BASOPHILS % (AUTO) 0.5 %; EOSINOPHILS # (AUTO) 0.4 10^3/uL (0.0-0.7); EOSINOPHILS % (AUTO) 6.1 %; HGB - HEMOGLOBIN 12.7 g/dL (14.0-18.0); LYMPHOCYTES # (AUTO) 1.1 10^3/uL (1.5-3.5); LYMPHOCYTES % (AUTO) 15.6 %; MEAN CORPUSCULAR HEMOGLOBIN 28.7 pg (27.0-31.0); MEAN CORPUSCULAR HGB CONC 33.3 g/dL (32.0-36.0); MEAN CORPUSCULAR VOLUME 86.1 fL (80.0-94.0); MEAN PLATELET VOLUME 9.3 fL (7.4-11.4); MONOCYTES % (AUTO) 14.2 %; NEUTROPHILS # (AUTO) 4.4 10^3/uL (1.5-6.6); NEUTROPHILS % (AUTO) 63.6 %; PLT - PLATELET COUNT 141 10^3/uL (130-450); RED BLOOD COUNT 4.41 10^6/uL (4.70-6.10); RED CELL DISTRIBUTION WIDTH 15.7 % (12.0-15.0); WHITE BLOOD COUNT 6.9 x10^3/uL (4.8-10.8)
[2017-10-10 06:14] LABS: CALCIUM 8.5 mg/dL (8.5-10.3); CREATININE 0.7 mg/dL (0.6-1.2)
[2017-10-10] MEDS: TAMSULOSIN 0.4 MG CAPSULE PO SCH (08:15)
[2017-10-10] MEDS: LOSARTAN 50 MG TABLET PO SCH (08:15)
[2017-10-10] MEDS: SACCHAROMYCES BOULARDII 250 MG CAPSULE PO SCH ×2 (08:15→16:45)
[2017-10-10] MEDS: TOLTERODINE LA 2 MG CAPSULE PO SCH (08:15)
[2017-10-10] MEDS: FUROSEMIDE 40 MG/4 ML VIAL IVP SCH (08:16)
[2017-10-10] MEDS: INSULIN ASPART 300 UNIT/3 ML PEN SUBQ SCH ×4 (08:16→21:02)
[2017-10-10] MEDS: FLUTICASONE NASAL SPRAY NAS SCH (08:16)
[2017-10-10] MEDS: POLYETHYLENE GLYCOL 3350 17 GM PACKET PO SCH (08:17)
[2017-10-10] MEDS: oxyCODONE 5 MG TABLET PO PRN (08:23)
[2017-10-10] MEDS: FORMOTEROL FUMARATE NEB 20 MCG/2 ML INH SCH ×2 (09:16→19:35)
[2017-10-10] MEDS: BUDESONIDE 0.5 MG/2 ML NEB INH SCH ×2 (09:16→19:35)
--- NOTE | 2017-10-10 11:49 | PROVIDER PROGRESS NOTE ---
Subjective - Prog Note Date Prog Note Date: 10/10/17 - Subjective Pt reports feeling: Improved Subjective: pt state he has great improvement in his left leg, and feel better. No fever, chill, cough, CP, SOB. Current Medications - Current Medications Current Medications: Active Medications Acetaminophen (Tylenol) 650 mg PO Q4HR PRN PRN Reason: Pain 1 to 4 Last Admin: 10/08/17 13:47 Dose: 650 mg Albuterol/Ipratropium (Duoneb) 3 ml INH Q4HR PRN PRN Reason: Wheezing Last Admin: 10/08/17 19:49 Dose: 3 ml Atorvastatin Calcium (Lipitor) 40 mg PO QPM BO Last Admin: 10/09/17 20:52 Dose: 40 mg Budesonide (Pulmicort) 0.5 mg INH RTBID BO Last Admin: 10/10/17 09:16 Dose: 0.5 mg Cyclobenzaprine HCl (Flexeril) 10 mg PO TID PRN PRN Reason: Spasms Last Admin: 10/08/17 16:22 Dose: 10 mg Fluticasone Propionate (Flonase) 0 sprays SANTHOSH DAILY BO Last Admin: 10/10/17 08:16 Dose: 2 spr Formoterol Fumarate (Perforomist) 20 mcg INH RTBID BO Last Admin: 10/10/17 09:16 Dose: 20 mcg Furosemide (Lasix Inj 40 Mg Vial) 40 mg IVP DAILY BO Last Admin: 10/10/17 08:16 Dose: 40 mg Hydrocortisone (Hydrocortisone) 1 applic TOP BID BO Last Admin: 10/10/17 08:17 Dose: 1 applic Hydroxyzine Pamoate (Vistaril) 25 mg PO QPM PRN PRN Reason: Insomnia Vancomycin HCl 1 gm/ Sodium (Chloride) 250 mls @ 167 mls/hr IV Q8H BO PRN Reason: Protocol Last Infusion: 10/10/17 07:44 Dose: Infused Aztreonam 1 gm/ Sodium (Chloride) 100 mls @ 200 mls/hr IV Q6H BO Last Infusion: 10/10/17 05:20 Dose: Infused Sodium Chloride (Normal Saline 0.9%) 500 mls @ 20 mls/hr IV Q24H PRN; TKO PRN Reason: TKO RATE Last Infusion: 10/10/17 04:49 Dose: 0 mls/hr Insulin Aspart (Novolog) 1 - 5 unit SUBQ 0800,1200,1700,2100 [facility] PRN Reason: Protocol Last Admin: 10/10/17 08:16 Dose: Not Given Lorazepam (Ativan Inj (Vial)) 0.5 mg IVP Q2H PRN PRN Reason: Anxiety Last Admin: 10/10/17 01:25 Dose: 0.5 mg Losartan Potassium (Cozaar) 25 mg PO DAILY [facility] Last Admin: 10/10/17 08:15 Dose: 25 mg Morphine Sulfate () 30 mg PO TID [facility] Last Admin: 10/10/17 05:57 Dose: 30 mg Multi-Ingredient Ointment (Zinc Oxide) 1 applic TOP PRN PRN PRN Reason: Skin Care Last Admin: 10/08/17 23:03 Dose: 1 applic Ondansetron HCl (Zofran Inj) 4 mg IVP Q6HR PRN PRN Reason: Nausea / Vomiting Oxycodone HCl (Roxicodone) 5 mg PO Q4HR PRN PRN Reason: Pain 5 to 7 Last Admin: 10/10/17 08:23 Dose: 5 mg Oxycodone HCl (Roxicodone) 10 mg PO Q4HR PRN PRN Reason: Pain 8 to 10 Last Admin: 10/09/17 03:43 Dose: 10 mg Pantoprazole Sodium (Protonix) 40 mg PO QDAC [facility] Last Admin: 10/10/17 06:00 Dose: 40 mg Polyethylene Glycol (Miralax) 17 gm PO DAILY [facility] Last Admin: 10/10/17 08:17 Dose: Not Given Prochlorperazine Edisylate (Compazine Inj) 10 mg IVP Q6HR PRN PRN Reason: Nausea / Vomiting Promethazine HCl (Phenergan Inj) 25 mg IM Q6HR PRN PRN Reason: Nausea / Vomiting Rivaroxaban (Xarelto) 20 mg PO 1700 [facility] Last Admin: 10/09/17 17:09 Dose: 20 mg Saccharomyces Boulardii (Florastor) 250 mg PO BIDWM [facility] Last Admin: 10/10/17 08:15 Dose: 250 mg Sodium Chloride (Normal Saline Flush 0.9%) 10 ml IVP PRN PRN PRN Reason: NEEDED PER PROVIDER ORDERS Last Admin: 10/09/17 01:37 Dose: 10 ml Sodium Chloride (Normal Saline Flush 0.9%) 10 ml IVP 0100,0900,1700 [facility] Last Admin: 10/10/17 08:17 Dose: Not Given Tamsulosin HCl (Flomax) 0.4 mg PO DAILY [facility] Last Admin: 10/10/17 08:15 Dose: 0.4 mg Temazepam (Restoril) 15 mg PO QPM PRN PRN Reason: Insomnia Last Admin: 10/09/17 23:44 Dose: 15 mg Tolterodine Tartrate (Detrol La) 4 mg PO DAILY [facility] Last Admin: 10/10/17 08:15 Dose: 4 mg Fluticasone [Flonase] 2 sprays SANTHOSH DAILY 05/29/14 Fluticasone/Salmeterol [Advair 250-50 Diskus] 1 puffs IH BID 05/29/14 Furosemide [Lasix] 40 mg PO .DAILY [facility] [place] 05/29/14 Ipratropium/Albuterol [Duoneb] 3 ml INH Q4H PRN 05/29/14 Pantoprazole Sodium [Protonix] 40 mg PO DAILY PM 05/29/14 Potassium Chloride [K-Dur] 20 meq PO DAILY 05/29/14 Pramipexole Di-HCl [Mirapex] 1.5 mg PO QPM 05/29/14 Tamsulosin [Flomax] 0.4 mg PO DAILY 06/22/14 Morphine Sulfate [Morphine Sulfate ER] 30 mg PO TID 05/12/16 Triamcinolone 0.1% Cream [Kenalog 0.1% Cream] 1 applic TOP DAILY PRN 05/12/16 Albuterol Sulf [Ventolin Hfa Inhaler] 2 puffs INH Q4HR PRN 10/25/16 Losartan [Cozaar] 25 mg PO DAILY 10/25/16 Oxymetazoline HCl [Afrin] 1 spray NS DAILY 10/25/16 Rivaroxaban [Xarelto] 20 mg PO DAILY 10/25/16 Tolterodine [Detrol LA] 4 mg PO DAILY 10/25/16 metFORMIN [Glucophage] 1,000 mg PO BIDWM 10/25/16 Cyclobenzaprine [Flexeril] 5 mg PO TID PRN 07/22/17 Polyethylene Glycol 3350 [Miralax] 5.6 g PO DAILY 09/14/17 Pravastatin [Pravachol] 40 mg PO DAILY 09/14/17 Furosemide [Lasix] 40 mg PO .BID ON [facility] 10/07/17 Oxycodone HCl [Oxycodone HCl] 10 mg PO BID PRN 10/07/17 hydrOXYzine HCl [Hydroxyzine HCl] 50 mg PO DAILY 10/07/17 Objective - Vital Signs/Intake & Output Reviewed Vital Signs: Yes Vital Signs: Vital Signs x48h Temp Pulse Pulse Resp BP Pulse Ox 10/10/17 09:16 84 16 10/10/17 07:50 37.1 C 88 18 128/72 95 Intake & Output: Intake & Output 10/07/17 10/08/17 10/09/17 10/10/17 23:59 23:59 23:59 23:59 Intake Total 3883.000 2014.717 1810 908 Output Total 951 2600 1800 Balance 3883.000 1063.717 -790 -892 - Objective General Appearance: positive: No acute distress, Alert. negative: Lethargic Eyes Bilateral: positive: Normal inspection, PERRL, No lid inflammation, Conjunctivae nml ENT: positive: ENT inspection nml, Pharynx nml, No signs of dehydration. negative: Purulent nasal drainage, Pharyngeal erythema, Oral lesions Neck: positive: Nml inspection, Thyroid nml, No JVD, Trachea midline. negative : Thyromegaly, Lymphadenopathy (R), Lymphadenopathy (L), Stiff neck, Swelling/ bruising, Tracheal deviation Respiratory: positive: Chest non-tender, No respiratory distress, Breath sounds nml. negative: Wheezes, Rales, Rhonchi Cardiovascular: positive: Regular rate & rhythm, No murmur, No gallop. negative : Irregularly irregular, Extrasystoles, Tachycardia, Bradycardia, JVD present, Systolic murmur, Diastolic murmur Peripheral Pulses: 2+ Radial (R), 2+ Radial (L), 2+ Dorsalis pedis (R), 2+ Dorsalis pedis (L) Abdomen: positive: Non-tender, No organomegaly, Nml bowel sounds, No distention. negative: Tenderness, Guarding, Rebound Back: positive: Nml inspection. negative: CVA tenderness (R), CVA tenderness (L ) Skin: positive: Warm, Dry, Other (erythema and swelling of left low extremity are significant reduced). negative: Cyanosis, Diaphoresis, Pallor Extremities: positive: Non-tender, Full ROM. negative: Calf tenderness, Joint swelling, Vibha's sign/cords Neurologic/Psychiatric: positive: Oriented x3, Motor nml, Sensation nml, Mood/ affect nml. negative: Weakness, Sensory loss, Facial droop, Slurred/abnml speech, Depressed mood/affect - Lab Results Fish Bones: 10/10/17 05:30 10/10/17 05:30 Other Labs: Lab Results x24hrs 10/10/17 10/10/17 10/10/17 Range/Units 11:22 07:52 05:30 WBC (4.8-10.8) x10^3/uL RBC (4.70-6.10) 10^6/uL Hgb (14.0-18.0) g/dL Hct (42.0-52.0) % MCV (80.0-94.0) fL MCH (27.0-31.0) pg MCHC (32.0-36.0) g/dL RDW (12.0-15.0) % Plt Count (130-450) 10^3/uL MPV (7.4-11.4) fL Neut # (Auto) (1.5-6.6) 10^3/uL Lymph # (Auto) (1.5-3.5) 10^3/uL [place] # (Auto) (0.0-1.0) 10^3/uL Eos # (Auto) (0.0-0.7) 10^3/uL Baso # (Auto) (0.0-0.1) 10^3/uL Absolute Nucleated RBC x10^3/uL Nucleated RBC % /100WBC Sodium 138 (135-145) mmol/L Potassium 3.5 (3.5-5.0) mmol/L Chloride 106 (101-111) mmol/L Carbon Dioxide 24 (21-32) mmol/L Anion Gap 8.0 (6-13) BUN 15 (6-20) mg/dL Creatinine 0.7 (0.6-1.2) mg/dL Estimated GFR (MDRD) 111 (>89) Glucose 115 H (70-100) mg/dL POC Whole Bld Glucose 118 H 109 H (70 - 100) mg/dL Calcium 8.5 (8.5-10.3) mg/dL 10/10/17 10/09/17 10/09/17 Range/Units 05:30 21:02 16:36 WBC 6.9 (4.8-10.8) x10^3/uL RBC 4.41 L (4.70-6.10) 10^6/uL Hgb 12.7 L (14.0-18.0) g/dL Hct 38.0 L (42.0-52.0) % MCV 86.1 (80.0-94.0) fL MCH 28.7 (27.0-31.0) pg MCHC 33.3 (32.0-36.0) g/dL RDW 15.7 H (12.0-15.0) % Plt Count 141 (130-450) 10^3/uL MPV 9.3 (7.4-11.4) fL Neut # (Auto) 4.4 (1.5-6.6) 10^3/uL Lymph # (Auto) 1.1 L (1.5-3.5) 10^3/uL [place] # (Auto) 1.0 (0.0-1.0) 10^3/uL Eos # (Auto) 0.4 (0.0-0.7) 10^3/uL Baso # (Auto) 0.0 (0.0-0.1) 10^3/uL Absolute Nucleated RBC 0.01 x10^3/uL Nucleated RBC % 0.1 /100WBC Sodium (135-145) mmol/L Potassium (3.5-5.0) mmol/L Chloride (101-111) mmol/L Carbon Dioxide (21-32) mmol/L Anion Gap (6-13) BUN (6-20) mg/dL Creatinine (0.6-1.2) mg/dL Estimated GFR (MDRD) (>89) Glucose (70-100) mg/dL POC Whole Bld Glucose 114 H 98 (70 - 100) mg/dL Calcium (8.5-10.3) mg/dL ABX Reporting Has patient been on IV antibiotics over the past 48 hours?: Yes Assessment/Plan - Problem List (1) Cellulitis Impression: Conclusion/Plan: 10/10 The swelling and erythema of pt's left low extremity reduce significantly. US of venous and artery reveals unremarkable, bone scan is pending continue antibiotics, rise of leg 10/09, pt slightly improved in his cellulitis, reduced swelling, slight reduced erythema. continue Vancomycin and Aztreonam per ID recommends rise left leg MITCHELL and bone scan are pending, follow up 10/08, consult with ID, ID agree the plan to treat pt. continue to have vancomycin and Aztreonam elevate left leg lactic acid 1.5. pt had normal WBC, no fever or chill. pt denies pain on left lower extremity. order MITCHELL of left leg, pending CT of left leg reveals cellulitis, no fluid collection, no DVT, no necrotizing fasciitis. 10/07 add Cefepime to pt, pt has significantly infection in the left low extremity, pt is DM, will follow up blood culture although no fever, not elevated WBC, but infection is severe. Pt denies pain, and pt has intact motor and sensation at the distal of all toes. IV vancomycin and cefepime IV fluids Wound care Pain control Closely monitor for sepsis, worsening of NF Orthopedic consult for evaluation of left knee effusion, will follow up The patient presented to the emergency department with left lower extremity cellulitis. 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 He has had cellulitis of the same leg. This time the patient is not as ill on presentation however the cellulitis has become significantly worse just overnight and this is very concerning given the patient's history. 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 The x-ray of the prosthetic joint shows a small effusion and some soft tissue swelling. The patient's infection likely was triggered by his fall and scraping of his left knee which likely allowed bacteria to be introduced under the skin and this bacteria spread to the lower part of his leg. Given the patient's history and the involvement of his left knee with prosthetic joint it was felt that the patient would be best served getting IV antibiotics for 1-2 days and monitor closely in the hospital so that he does not again develop severe sepsis or septic shock. Plan: IV vancomycin IV fluids Wound care Pain control If patient spikes a fever we will get blood cultures Closely monitor for sepsis Orthopedic consult for evaluation of left knee effusion. (2) venous stasis 10/10 pt report the swelling, erythema and infection of low extremity happened before when he was ill. The rise of leg significantly reduced the symptoms. continue rise of leg continue antibiotics continue home meds Lasix (3)DM type 2, uncontrolled, with neuropathy Conclusion/Plan: 10/07 A1C is 6.7, glucose is well controlled continue insulin and slide scale Patient has history of diabetes and is managed without insulin just on metformin. The patient states that his blood sugars are usually between 120 and 140 at home. He is very meticulous with his diet. On presentation to the emergency department the patient's blood glucose is 137. Plan: We will hold the patient's metformin while he is hospitalized Patient will be started on sliding scale insulin Patient will be placed on a diabetic diet We will check hemoglobin A1c Patient needs tight control of his blood sugars given that he has ongoing cellulitis. (4) Atrial fibrillation Conclusion/Plan: 10/08 HR 88, well controlled HR continue Xarelto Patient has history of chronic atrial fibrillation and is on Xarelto at home. Patient appears to have rate controlled A. fib with pacemaker. Plan: Patient will be continued on his home dose of Xarelto The patient does not appear to be on any rate control medications and we will continue to monitor his rate and start a rate control agent if needed. (5) Hypertension Conclusion/Plan: Patient has a history of hypertension on presentation to the emergency department the patient's blood pressure is elevated. Patient blood pressure could be elevated secondary to pain in his left lower extremity. The patient will be continued on his home antihypertensive medication losartan but we will hold his Lasix as the patient appears to be on the dry side and given infection we would like to give him IV fluids. The patient does have a history of diastolic heart failure therefore we will need to be careful when doing this. (6) Back pain Conclusion/Plan: no further pain complaint. continue with home pain medication for pain control Patient has chronic low back pain and is on chronic opioids at home. The patient is on extended release morphine 30 mg 3 times daily. We will continue this while the patient is hospitalized in place him on as needed oxycodone. The patient will also be continued on his home dose of Flexeril. 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 The patient is on Ventolin inhaler, duo nebs and Advair at home. The patient currently appears to be stable and he is not having any wheezing or shortness of breath. Plan: Patient will be placed on duo nebs as needed while he is hospitalized We will place him on formoterol and budesonide twice daily in place of Advair. (8) BPH (benign prostatic hyperplasia) Conclusion/Plan: Patient has a history of BPH and is on Flomax and tolterodine at home. We will continue these medications while he is hospitalized. Currently he is not having any symptoms and appears to be stable. (9) pulmonary edema/infection. 10/10 stable, room air 95% sats. No fever, chill, cough. WBC is normal continue IV lasix continue antibiotics stable, room air 95% sats CXR reveals pulmonary edema/infection resume Lasix IV 4o mg daily continue Vancomycin and Aztreonam continue INH treatment, O2 supplement as needed (9) left knee effusion 10/09 followup orthopedics, mild erythema and swelling at left knee, pt denies pain. consulted and called with orthopedics, will follow up Qualifiers: Site of cellulitis: extremity Site of cellulitis of extremity: lower extremity Laterality: left Qualified Code(s): L03.116 - Cellulitis of left lower limb
[2017-10-10] MEDS: RIVAROXABAN 10 MG TABLET PO SCH (16:45)
--- NOTE | 2017-10-10 19:08 | PROVIDER PROGRESS NOTE ---
Subjective - Prog Note Date Prog Note Date: 10/10/17 Prog Note Time: 07:06 - Subjective Pt reports feeling: Improved Objective - Vital Signs/Intake & Output Vital Signs: Vital Signs x48h Temp Pulse Resp BP Pulse Ox 10/10/17 15:40 36.9 C 62 20 134/86 H 95 Intake & Output: Intake & Output 10/07/17 10/08/17 10/09/17 10/10/17 23:59 23:59 23:59 23:59 Intake Total 3883.000 2014.717 1810 1678 Output Total 951 2600 2450 Balance 3883.000 1063.717 -790 -772 - Objective General Appearance: positive: No acute distress, Alert Extremities: positive: Other (Leg remains erythematous and severely indurated) - Lab Results Fish Bones: 10/10/17 05:30 10/10/17 05:30 Other Labs: Lab Results x24hrs 10/10/17 10/10/17 10/10/17 Range/Units 16:38 11:22 07:52 WBC (4.8-10.8) x10^3/uL RBC (4.70-6.10) 10^6/uL Hgb (14.0-18.0) g/dL Hct (42.0-52.0) % MCV (80.0-94.0) fL MCH (27.0-31.0) pg MCHC (32.0-36.0) g/dL RDW (12.0-15.0) % Plt Count (130-450) 10^3/uL MPV (7.4-11.4) fL Neut # (Auto) (1.5-6.6) 10^3/uL Lymph # (Auto) (1.5-3.5) 10^3/uL [place] # (Auto) (0.0-1.0) 10^3/uL Eos # (Auto) (0.0-0.7) 10^3/uL Baso # (Auto) (0.0-0.1) 10^3/uL Absolute Nucleated RBC x10^3/uL Nucleated RBC % /100WBC Sodium (135-145) mmol/L Potassium (3.5-5.0) mmol/L Chloride (101-111) mmol/L Carbon Dioxide (21-32) mmol/L Anion Gap (6-13) BUN (6-20) mg/dL Creatinine (0.6-1.2) mg/dL Estimated GFR (MDRD) (>89) Glucose (70-100) mg/dL POC Whole Bld Glucose 109 H 118 H 109 H (70 - 100) mg/dL Calcium (8.5-10.3) mg/dL 10/10/17 10/10/17 10/09/17 Range/Units 05:30 05:30 21:02 WBC 6.9 (4.8-10.8) x10^3/uL RBC 4.41 L (4.70-6.10) 10^6/uL Hgb 12.7 L (14.0-18.0) g/dL Hct 38.0 L (42.0-52.0) % MCV 86.1 (80.0-94.0) fL MCH 28.7 (27.0-31.0) pg MCHC 33.3 (32.0-36.0) g/dL RDW 15.7 H (12.0-15.0) % Plt Count 141 (130-450) 10^3/uL MPV 9.3 (7.4-11.4) fL Neut # (Auto) 4.4 (1.5-6.6) 10^3/uL Lymph # (Auto) 1.1 L (1.5-3.5) 10^3/uL [place] # (Auto) 1.0 (0.0-1.0) 10^3/uL Eos # (Auto) 0.4 (0.0-0.7) 10^3/uL Baso # (Auto) 0.0 (0.0-0.1) 10^3/uL Absolute Nucleated RBC 0.01 x10^3/uL Nucleated RBC % 0.1 /100WBC Sodium 138 (135-145) mmol/L Potassium 3.5 (3.5-5.0) mmol/L Chloride 106 (101-111) mmol/L Carbon Dioxide 24 (21-32) mmol/L Anion Gap 8.0 (6-13) BUN 15 (6-20) mg/dL Creatinine 0.7 (0.6-1.2) mg/dL Estimated GFR (MDRD) 111 (>89) Glucose 115 H (70-100) mg/dL POC Whole Bld Glucose 114 H (70 - 100) mg/dL Calcium 8.5 (8.5-10.3) mg/dL Assessment/Plan - Problem List (1) Cellulitis Impression: Await further vascular studies and bone scan. Qualifiers: Site of cellulitis: extremity Site of cellulitis of extremity: lower extremity Laterality: left Qualified Code(s): L03.116 - Cellulitis of left lower limb
[2017-10-10] MEDS: SODIUM CHLORIDE FLUSH 0.9% 10 ML SYRINGE IVP PRN (20:33)
[2017-10-10] MEDS: ATORVASTATIN 40 MG TABLET PO SCH (21:02)
[2017-10-11] MEDS: AZTREONAM 1 GM in SODIUM CHLORIDE 0.9% MINIBAG 100 ML IV SCH ×2 (04:33→10:32)
[2017-10-11 05:51] LABS: BASOPHILS % (AUTO) 0.6 %; EOSINOPHILS # (AUTO) 0.6 10^3/uL (0.0-0.7); EOSINOPHILS % (AUTO) 7.7 %; HGB - HEMOGLOBIN 12.8 g/dL (14.0-18.0); LYMPHOCYTES # (AUTO) 1.5 10^3/uL (1.5-3.5); LYMPHOCYTES % (AUTO) 20.8 %; MEAN CORPUSCULAR HEMOGLOBIN 28.5 pg (27.0-31.0); MEAN CORPUSCULAR VOLUME 86.3 fL (80.0-94.0); MEAN PLATELET VOLUME 8.9 fL (7.4-11.4); MONOCYTES # (AUTO) 0.9 10^3/uL (0.0-1.0); MONOCYTES % (AUTO) 12.8 %; NEUTROPHILS # (AUTO) 4.3 10^3/uL (1.5-6.6); NEUTROPHILS % (AUTO) 58.1 %; PLT - PLATELET COUNT 155 10^3/uL (130-450); RED BLOOD COUNT 4.51 10^6/uL (4.70-6.10); RED CELL DISTRIBUTION WIDTH 15.2 % (12.0-15.0); WHITE BLOOD COUNT 7.3 x10^3/uL (4.8-10.8)
[2017-10-11 06:02] LABS: CALCIUM 8.7 mg/dL (8.5-10.3); CREATININE 0.8 mg/dL (0.6-1.2)
[2017-10-11] MEDS: MORPHINE ER 15 MG TABLET PO SCH (06:07)
[2017-10-11] MEDS: PANTOPRAZOLE 40 MG TABLET PO SCH (06:07)
[2017-10-11] MEDS: VANCOMYCIN INJ 1 GM in SODIUM CHLORIDE 0.9% 250 ML IV SCH (06:08)
[2017-10-11] MEDS ORDERED: POTASSIUM CHLORIDE 20 MEQ TABLET PO ONE (07:20)
[2017-10-11 08:09] VITALS: BP 151/101
[2017-10-11] MEDS: FUROSEMIDE 40 MG/4 ML VIAL IVP SCH (09:15)
[2017-10-11] MEDS: TAMSULOSIN 0.4 MG CAPSULE PO SCH (09:15)
[2017-10-11] MEDS: SACCHAROMYCES BOULARDII 250 MG CAPSULE PO SCH (09:15)
[2017-10-11] MEDS: TOLTERODINE LA 2 MG CAPSULE PO SCH (09:15)
[2017-10-11] MEDS: LOSARTAN 50 MG TABLET PO SCH (09:15)
[2017-10-11] MEDS: HYDROCORTISONE 1% CREAM 28 GM TUBE TOP SCH (09:17)
[2017-10-11] MEDS: POLYETHYLENE GLYCOL 3350 17 GM PACKET PO SCH (09:17)
[2017-10-11] MEDS: FLUTICASONE NASAL SPRAY NAS SCH (09:17)
[2017-10-11] MEDS: SODIUM CHLORIDE FLUSH 0.9% 10 ML SYRINGE IVP SCH (09:17)
[2017-10-11] MEDS: INSULIN ASPART 300 UNIT/3 ML PEN SUBQ SCH ×2 (09:18→11:46)
[2017-10-11] MEDS: FORMOTEROL FUMARATE NEB 20 MCG/2 ML INH SCH (09:30)
[2017-10-11] MEDS: BUDESONIDE 0.5 MG/2 ML NEB INH SCH (09:30)
--- NOTE | 2017-10-11 12:04 | PROVIDER PROGRESS NOTE ---
Subjective - Prog Note Date Prog Note Date: 10/11/17 Prog Note Time: 12:02 - Subjective Pt reports feeling: Improved Objective - Vital Signs/Intake & Output Vital Signs: Vital Signs x48h Temp Pulse Pulse Resp BP Pulse Ox 10/11/17 09:30 80 19 10/11/17 08:00 36.0 C L 80 18 151/101 H 97 Intake & Output: Intake & Output 10/08/17 10/09/17 10/10/17 10/11/17 23:59 23:59 23:59 23:59 Intake Total 2014.717 1810 2478 700 Output Total 951 2600 2450 400 Balance 1063.717 -790 28 300 - Objective Peripheral Pulses: 0 Dorsalis pedis (R), 0 Dorsalis pedis (L), 0 Posterior tibialis (R), 0 Posterior tibialis (L) (Feet cold) Extremities: positive: Other (Patellar tendon with some hematoma. Aspirated under sterile conditions and blood was obtained. Sent for culture Leg is much improved today.) - Lab Results Fish Bones: 10/11/17 05:39 10/11/17 05:39 Other Labs: Lab Results x24hrs 10/11/17 10/11/17 10/11/17 Range/Units 11:16 07:24 05:39 WBC (4.8-10.8) x10^3/uL RBC (4.70-6.10) 10^6/uL Hgb (14.0-18.0) g/dL Hct (42.0-52.0) % MCV (80.0-94.0) fL MCH (27.0-31.0) pg MCHC (32.0-36.0) g/dL RDW (12.0-15.0) % Plt Count (130-450) 10^3/uL MPV (7.4-11.4) fL Neut # (Auto) (1.5-6.6) 10^3/uL Lymph # (Auto) (1.5-3.5) 10^3/uL [place] # (Auto) (0.0-1.0) 10^3/uL Eos # (Auto) (0.0-0.7) 10^3/uL Baso # (Auto) (0.0-0.1) 10^3/uL Absolute Nucleated RBC x10^3/uL Nucleated RBC % /100WBC Sodium 139 (135-145) mmol/L Potassium 3.4 L (3.5-5.0) mmol/L Chloride 106 (101-111) mmol/L Carbon Dioxide 24 (21-32) mmol/L Anion Gap 9.0 (6-13) BUN 16 (6-20) mg/dL Creatinine 0.8 (0.6-1.2) mg/dL Estimated GFR (MDRD) 95 (>89) Glucose 120 H (70-100) mg/dL POC Whole Bld Glucose 153 H 100 (70 - 100) mg/dL Calcium 8.7 (8.5-10.3) mg/dL 10/11/17 10/10/17 10/10/17 Range/Units 05:39 20:32 16:38 WBC 7.3 (4.8-10.8) x10^3/uL RBC 4.51 L (4.70-6.10) 10^6/uL Hgb 12.8 L (14.0-18.0) g/dL Hct 38.9 L (42.0-52.0) % MCV 86.3 (80.0-94.0) fL MCH 28.5 (27.0-31.0) pg MCHC 33.0 (32.0-36.0) g/dL RDW 15.2 H (12.0-15.0) % Plt Count 155 (130-450) 10^3/uL MPV 8.9 (7.4-11.4) fL Neut # (Auto) 4.3 (1.5-6.6) 10^3/uL Lymph # (Auto) 1.5 (1.5-3.5) 10^3/uL [place] # (Auto) 0.9 (0.0-1.0) 10^3/uL Eos # (Auto) 0.6 (0.0-0.7) 10^3/uL Baso # (Auto) 0.0 (0.0-0.1) 10^3/uL Absolute Nucleated RBC 0.01 x10^3/uL Nucleated RBC % 0.1 /100WBC Sodium (135-145) mmol/L Potassium (3.5-5.0) mmol/L Chloride (101-111) mmol/L Carbon Dioxide (21-32) mmol/L Anion Gap (6-13) BUN (6-20) mg/dL Creatinine (0.6-1.2) mg/dL Estimated GFR (MDRD) (>89) Glucose (70-100) mg/dL POC Whole Bld Glucose 130 H 109 H (70 - 100) mg/dL Calcium (8.5-10.3) mg/dL Assessment/Plan - Problem List (1) Cellulitis Impression: Plan would be to keep him on Vancomycin fo another 5 days or so. Agree with PICC line. He needs to see a vascular surgeon. Aspirated the prepatellar region of swelling and bloody drainage with no pus was obtained. Sent for culture. Procedure note: After prepping the skin with Betadine, I aspirated a small less than 1 cc of blood from the prepatellar region. Patient tolerated the procedure without difficulty. Qualifiers: Site of cellulitis: extremity Site of cellulitis of extremity: lower extremity Laterality: left Qualified Code(s): L03.116 - Cellulitis of left lower limb
--- NOTE | 2017-10-11 13:04 | Discharge Plan ---
Discharge Plan Disposition: Home, Self Care Condition: Poor Prescriptions: Sulfamethox/Trimeth 800/160 [Bactrim Ds 800/160] 1 each PO BID #14 tablet Diet: Diabetic Activity Restrictions: Activity as Tolerated Shower Restrictions: No (fall precaution, caregiver closely monitor) Instruction Topics: Sulfamethoxazole Trimethoprim SMX-TMP tablets, ED Infec Skin Cellulitis Additional Instructions or Follow Up instructions: You may follow up your PCP in 2-3 days, follow up infection disease and orthopedics provider as out-pt, follow up vascular surgeon as out-pt. You request to be d/c today. Your state she will bring you go to [facility] today for further evaluation and treatment. You are prescribed Bactrim DS for your leg infection. Should your symptoms return or worsen, you may present ER or call 911 for help. No Smoking: If you smoke, Please STOP! Call for help. Follow-up with: Ajay Valles MD [Primary Care Provider] -
--- NOTE | 2017-10-11 13:14 | DISCHARGE SUMMARY ---
"Discharge Summary Discharge Date: 10/11/17 Discharging Provider: MARTINEZ Primary Care Provider: Dr. Ajay Valles Condition at Discharge: Poor Discharge Disposition: 01 Home, Self Care Discharge Facility Name: home - DIAGNOSES Admission Diagnoses: (1) Cellulitis (2) DM type 2, uncontrolled, with neuropathy (3) Atrial fibrillation (4) Hypertension (5) Back pain (6) COPD (chronic obstructive pulmonary disease) (7) BPH (benign prostatic hyperplasia) Discharge Diagnoses with Status of Each Condition: (1) Cellulitis pt report he was admitted several times hospitalization of his lef lower extremity cellulitis. He state he continue to have chronic swelling and erythema on his lower extremity, comes and goes. CT of lower extremity reveals cellulitis, no fluid collection or osteomylitis. Pt has pacemaker, not good candidate for MRI test. US of lower extreimity artery and venous reveal no significant stenosis or DVT clots. consulted with ID hotline. ID recommend pt have vancomycin and aztreonam, pt is with hx of allergy to penicillins. Pt state his infection better and improved. The D/C plan for pt is: discharge to home with PICC line for home infusion of vancomycin on 10/12/17. After continuous pillowcase cutter set up home infusion, PICC line will be set up for pt on 10/11/17. pt is hemodynamic stable. Pt is advised to follow up infection disease ID as out-pt. I discussed All these discharge plan with pt, pt agreed these discharge plan. (2) venous stasis pt has chronic swelling and erythema on his lower extremity, comes and goes. Dr. Teresita Ibarra and me both concern pt's lower extremity circulation and advise pt may have vascular surgeon evaluation as out-pt setting. pt is hemodynamic stable, has intact motion and sensation in the distal toes, no pain is reported. Although US of lower extremity reveals no significant stenosis but both foot and distal toes are cold, and can have barely touchable dorsalis pedis pulse bilaterally. In 10/11/17 morning, I with together assessed pt, discussed with pt, pt agreed the discharge plan. (3)DM type 2, uncontrolled, with neuropathy A1C is 6.7, stable controlled glucose level, followup PCP management (4) Atrial fibrillation stable HR around 80, continue Xarelto, followup PCP management (5) Hypertension stable, continue home regimen, followup PCP management (6) Back pain chronic, continue home pain medication regimen (7) COPD (chronic obstructive pulmonary disease) stable,continue home pain medication regimen, followup PCP management (8) BPH (benign prostatic hyperplasia) stable,continue home pain medication regimen, (9) pulmonary edema/infection. pt has no cough, fever, chill, WBC is normal. 97% sats on room air. pt has hx of chronic pulmonary fibrosis. continue home infusion antibiotics for infection control,followup PCP management (10) left knee effusion pt has a fall on 08/27/17, and landed on left knee. Xray reveals no fracture, with soft tissue edema and small effusion on left knee. DR Ibarra was consulted , Effusion was drained, the study of effusion fluid reveals no organism see. - HPI History of Present Illness: Patient was admitt for left lower extremity cellulitis with redness and swelling. The patient has been hospitalized here in the past for left lower extremity cellulitis with sepsis and septic shock. Pt visited wound care for an ulcer on the bottom of his right foot. pt report he did have chronic issues with lower extremity swelling which comes and goes. The patient states on September 26, 2017 had a fall with which he landed on his knees. No other injuries were reported. He state he has full range motion of his knee without any significant pain. 2-3 days later after the fall, he started noticing blisters on his left leg, had redness all the way down his left lower extremity below his knee. His left lower extremity became very hot, swollen and painful. - CONSULTS | PROCEDURES Consultations: Dr. Teresita Ibarra, Orthopedics Procedures: left knee effusion drain - HOSPITAL COURSE Hospital Course: Pt was admitted for lower extremity cellulitis and evaluation and treatment of left knee injury from a fall. pt is initially treated with vancomycin. Then ID was consulted, and recommend pt has both IV of Vancomycin and aztreonam. Pt reported he had significant improvement on cellulitis of left lower extremity, reduced erythema and swelling. Pt also asked me if I have outside medical office , he will follow up my office if I have. I told to me I did not have outside medical office. He did express his appreciation of my care and our team to me. Pt had discharge plan: discharge on 10/12/17 with PICC on vancomycn home infusion , and follow up PCP and ID as out-pt. Xray of left knee revealed no fracture, with small effusion. was consulted. Effusion was drained from knee. The study of effusion showed no organism seen. Although US of lower extremity reveals no significant stenosis but both foot and distal toes are cold, and can have barely touchable dorsalis pedis pulse bilaterally. Pt is advised by both Dr. Ibarra and me pt may have vascular surgeon evaluation as out-pt setting. There is a discharge condition which will be clarified in here On 10/11/17 morning, both Dr. Ibarra and assessed pt, and discussed with pt about discharge plan: home infusion of vancomycin with PICC line, follow up PCP , ID, Vascular surgeon as out-pt. For in detail, please review pt's discharge instruction in which pt understood and signed it when discharge. I called our continuous pillowcase cutter Renay on 10/11/17 morning, and asked her help to set up home infusion of vancomycin for pt. I also wrote home infusion of vancomycin prescribe to Renay for home infusion setting. after home infusion was set up, I will order PICC line for pt. Renay did do the job help to set up the home infusion, please review her notes. Pt's nurse gave me pt's 's phone number to me, and state pt's request me to call her. I did call her. In the phone she suddenly request me to discharge her today, and she will bring her to for further evaluation and treatment. Then she called me again and stated she will bring her to [facility]. Pt also called me and request me to discharge him in thirty minutes. I discussed with pt there is not enough time in 30 minute we can set up for home infusion with PICC. Then Pt's , daughter came to hospital and requested me discharge pt right now. I told them, i discussed with pt to have a plan for pt: discharge him on tomorrow with home infusion of vancomycin, with follow up PCP, ID, orthopedics and vascular surgeon as out-pt. they declined the plan. I printed the studies to show and discussed them there is no urgency to transfer pt for vascular evaluation. The US study of lower extremity artery showed no significant stenosis, and pt has intact distal motion and sensation, and no pain. Pt is hemodynamic stable. Pt's insisted pt to be discharged now, she will bring her to [place]. - ALLERGIES Allergies/Adverse Reactions: Allergies Allergy/AdvReac Type Severity Reaction Status Date / Time Penicillins Allergy Intermediate Hives,itchi Verified 10/06/17 23:22 ng amiodarone Allergy Respiratory Verified 10/06/17 23:22 latex Allergy Rash Verified 10/06/17 23:39 rofecoxib [From Vioxx] Allergy Unknown Verified 10/06/17 23:22 cephalexin monohydrate * AdvReac Intermediate Itching Verified 10/06/17 23:22 [From Keflex] animal dander Allergy Unknown Uncoded 10/06/17 23:22 pollen Allergy Unknown Uncoded 10/06/17 23:22 - MEDICATIONS Home Medications: Ambulatory Orders Medication Instructions Recorded Confirmed Fluticasone [Flonase] 2 sprays SANTHOSH DAILY 05/29/14 10/07/17 Fluticasone/Salmeterol [Advair 1 puffs IH BID 05/29/14 10/07/17 250-50 Diskus] Furosemide [Lasix] 40 mg PO .DAILY ON TUTHSASU 05/29/14 10/07/17 Ipratropium/Albuterol [Duoneb] 3 ml INH Q4H PRN 05/29/14 10/07/17 Pantoprazole Sodium [Protonix] 40 mg PO DAILY PM 05/29/14 10/07/17 Potassium Chloride [K-Dur] 20 meq PO DAILY 05/29/14 10/07/17 Pramipexole Di-HCl [Mirapex] 1.5 mg PO QPM 05/29/14 10/07/17 Tamsulosin [Flomax] 0.4 mg PO DAILY 06/22/14 10/07/17 Morphine Sulfate [Morphine Sulfate 30 mg PO TID 05/12/16 10/07/17 ER] Triamcinolone 0.1% Cream [Kenalog 1 applic TOP DAILY PRN 05/12/16 10/07/17 0.1% Cream] Albuterol Sulf [Ventolin Hfa 2 puffs INH Q4HR PRN 10/25/16 10/07/17 Inhaler] Losartan [Cozaar] 25 mg PO DAILY 10/25/16 10/07/17 Oxymetazoline HCl [Afrin] 1 spray NS DAILY 10/25/16 10/07/17 Rivaroxaban [Xarelto] 20 mg PO DAILY 10/25/16 10/07/17 Tolterodine [Detrol LA] 4 mg PO DAILY 10/25/16 10/07/17 metFORMIN [Glucophage] 1,000 mg PO BIDWM 10/25/16 10/07/17 Cyclobenzaprine [Flexeril] 5 mg PO TID PRN 07/22/17 10/07/17 Polyethylene Glycol 3350 [Miralax] 5.6 g PO DAILY 09/14/17 10/07/17 Pravastatin [Pravachol] 40 mg PO DAILY 09/14/17 10/07/17 Furosemide [Lasix] 40 mg PO .BID ON MOWEFR 10/07/17 10/07/17 Oxycodone HCl 10 mg PO BID PRN 10/07/17 10/07/17 hydrOXYzine HCl [Hydroxyzine HCl] 50 mg PO DAILY 10/07/17 10/07/17 Sulfamethox/Trimeth 800/160 1 each PO BID #14 tablet 10/11/17 [Bactrim Ds 800/160] - PHYSICAL EXAM AT DISCHARGE General Appearance: positive: No acute distress, Alert. negative: Lethargic Eyes Bilateral: positive: Normal inspection, PERRL, No lid inflammation, Conjunctivae nml ENT: positive: ENT inspection nml, Pharynx nml, No signs of dehydration. negative: Purulent nasal drainage, Pharyngeal erythema, Oral lesions Neck: positive: Nml inspection, Thyroid nml, No JVD, Trachea midline. negative : Thyromegaly, Lymphadenopathy (R), Lymphadenopathy (L), Stiff neck, Swelling/ bruising, Tracheal deviation Respiratory: positive: Chest non-tender, No respiratory distress, Breath sounds nml. negative: Wheezes, Rales, Rhonchi Cardiovascular: positive: Regular rate & rhythm, No murmur, No gallop. negative : Irregularly irregular, Extrasystoles, Tachycardia, Bradycardia, JVD present, Systolic murmur, Diastolic murmur Peripheral Pulses: positive: 2+, Other (dorsalis pedis pulse is 1+ or less) Abdomen: positive: Non-tender, No organomegaly, Nml bowel sounds, No distention. negative: Tenderness, Guarding, Rebound Back: positive: Nml inspection. negative: CVA tenderness (R), CVA tenderness (L ) Skin: positive: Warm, Dry, Skin rash. negative: Cyanosis, Diaphoresis, Pallor Extremities: positive: Full ROM, Other (left lower extremity erythema and mild to moderate swelling. Right lower extremity has slight erythema, no swelling). negative: Calf tenderness, Vibha's sign/cords Neurologic/Psychiatric: positive: Oriented x3, Motor nml, Sensation nml. negative: Weakness, Sensory loss, Facial droop, Slurred/abnml speech, Depressed mood/affect - LABS Result Diagrams: 10/11/17 05:39 10/11/17 05:39 - FOLLOW UP Follow Up: You may follow up your PCP in 2-3 days, follow up infection disease and orthopedics provider as out-pt, follow up vascular surgeon as out-pt. You request to be d/c today. Your state she will bring you go to [facility] today for further evaluation and treatment. You are prescribed Bactrim DS for your leg infection. Should your symptoms return or worsen, you may present ER or call 911 for help. - TIME SPENT Time Spent in Discharge (Minutes): 70"
== END 2017-10-11 14:26 | disposition home or self-care (01) | DRG 603 ==
LOC: ED 23:05 → MS2 10-07 00:37
PROVIDERS: ADMIT Internal Medicine; ATTEND Nurse Practitioner Gerontology
PROC: 0S9D3ZX Drainage of Left Knee Joint, Percutaneous Approach, Diagnostic (ICD-10-PCS; principal; 2017-10-11)
DX: L03.116 Cellulitis of left lower limb (principal); I48.92 Unspecified atrial flutter; I50.30 Unspecified diastolic (congestive) heart failure; E11.51 Type 2 diabetes mellitus with diabetic peripheral angiopathy without gangrene; E11.9 Type 2 diabetes mellitus without complications; G47.30 Sleep apnea, unspecified; I50.9 Heart failure, unspecified; E78.00 Pure hypercholesterolemia, unspecified; I48.91 Unspecified atrial fibrillation; I11.0 Hypertensive heart disease with heart failure; J44.9 Chronic obstructive pulmonary disease, unspecified; N40.0 Benign prostatic hyperplasia without lower urinary tract symptoms; M25.462 Effusion, left knee; E11.40 Type 2 diabetes mellitus with diabetic neuropathy, unspecified; G89.29 Other chronic pain; M54.9 Dorsalgia, unspecified; Z53.29 Procedure and treatment not carried out because of patient's decision for other reasons; E66.9 Obesity, unspecified; E78.5 Hyperlipidemia, unspecified; K21.9 Gastro-esophageal reflux disease without esophagitis; J70.3 Chronic drug-induced interstitial lung disorders; E11.42 Type 2 diabetes mellitus with diabetic polyneuropathy; Z68.39 Body mass index [BMI] 39.0-39.9, adult; Z79.84 Long term (current) use of oral hypoglycemic drugs; Z79.01 Long term (current) use of anticoagulants; Z79.891 Long term (current) use of opiate analgesic; Z79.51 Long term (current) use of inhaled steroids; Z79.899 Other long term (current) drug therapy; Z96.653 Presence of artificial knee joint, bilateral; T46.2X5D Adverse effect of other antidysrhythmic drugs, subsequent encounter; Z95.0 Presence of cardiac pacemaker; Z87.01 Personal history of pneumonia (recurrent); Z87.891 Personal history of nicotine dependence
CPT/HCPCS: 36415; 36600; 71045; 80048; 80053; 80202; 82803; 83036; 83605; 83690; 85025; 85651; 86140; 87040; 87205; 94640; 96365; 99283; 99284

== ENCOUNTER 2017-10-13 08:00 | Outpatient (CLI) | payer MEDICARE ==
[2017-10-13 16:08] LABS: BASOPHILS # (AUTO) 0.1 10^3/uL (0.0-0.1); EOSINOPHILS # (AUTO) 0.7 10^3/uL (0.0-0.7); EOSINOPHILS % (AUTO) 7.2 %; HGB - HEMOGLOBIN 13.4 g/dL (14.0-18.0); LYMPHOCYTES # (AUTO) 2.9 10^3/uL (1.5-3.5); LYMPHOCYTES % (AUTO) 28.8 %; MEAN CORPUSCULAR HEMOGLOBIN 28.4 pg (27.0-31.0); MEAN CORPUSCULAR VOLUME 86.1 fL (80.0-94.0); MEAN PLATELET VOLUME 9.7 fL (7.4-11.4); MONOCYTES # (AUTO) 0.9 10^3/uL (0.0-1.0); MONOCYTES % (AUTO) 8.5 %; NEUTROPHILS # (AUTO) 5.5 10^3/uL (1.5-6.6); NEUTROPHILS % (AUTO) 54.5 %; PLT - PLATELET COUNT 182 10^3/uL (130-450); RED BLOOD COUNT 4.73 10^6/uL (4.70-6.10); RED CELL DISTRIBUTION WIDTH 15.5 % (12.0-15.0); WHITE BLOOD COUNT 10.1 x10^3/uL (4.8-10.8)
[2017-10-13 16:16] LABS: BUN - BLOOD UREA NITROGEN 13 mg/dL (6-20); CALCIUM 9.3 mg/dL (8.5-10.3); CARBON DIOXIDE - CO2 25 mmol/L (21-32); CHLORIDE 103 mmol/L (101-111); CREATININE 0.7 mg/dL (0.6-1.2); GFR - MDRD 111 (>89); GLUCOSE 106 mg/dL (70-100); SODIUM 137 mmol/L (135-145); VANCOMYCIN,TROUGH 14.1 ug/mL (10.0-20.0)
== END 2017-10-13 08:01 | disposition home or self-care (01) ==
LOC: LAB.R 08:00
PROVIDERS: ATTEND Internal Medicine Infectious Disease
DX: L03.116 Cellulitis of left lower limb (principal)
CPT/HCPCS: 80048; 80202; 85025

== ENCOUNTER 2017-10-17 14:10 | Outpatient (CLI) | payer MEDICARE ==
[2017-10-17 19:01] LABS: BUN - BLOOD UREA NITROGEN 20 mg/dL (6-20); CALCIUM 9.4 mg/dL (8.5-10.3); CARBON DIOXIDE - CO2 27 mmol/L (21-32); CHLORIDE 99 mmol/L (101-111); CREATININE 0.8 mg/dL (0.6-1.2); GFR - MDRD 95 (>89); GLUCOSE 139 mg/dL (70-100); SODIUM 135 mmol/L (135-145); VANCOMYCIN,TROUGH 24.3 ug/mL (10.0-20.0)
[2017-10-17 20:58] LABS: BASOPHILS # (AUTO) 0.1 10^3/uL (0.0-0.1); BASOPHILS % (AUTO) 1.1 %; EOSINOPHILS # (AUTO) 0.7 10^3/uL (0.0-0.7); EOSINOPHILS % (AUTO) 7.9 %; LYMPHOCYTES # (AUTO) 2.2 10^3/uL (1.5-3.5); LYMPHOCYTES % (AUTO) 25.3 %; MEAN CORPUSCULAR HEMOGLOBIN 28.2 pg (27.0-31.0); MEAN CORPUSCULAR VOLUME 85.4 fL (80.0-94.0); MEAN PLATELET VOLUME 9.7 fL (7.4-11.4); MONOCYTES # (AUTO) 0.7 10^3/uL (0.0-1.0); MONOCYTES % (AUTO) 8.5 %; NEUTROPHILS # (AUTO) 4.9 10^3/uL (1.5-6.6); NEUTROPHILS % (AUTO) 57.2 %; PLT - PLATELET COUNT 200 10^3/uL (130-450); RED BLOOD COUNT 4.63 10^6/uL (4.70-6.10); RED CELL DISTRIBUTION WIDTH 15.9 % (12.0-15.0); WHITE BLOOD COUNT 8.5 x10^3/uL (4.8-10.8)
== END 2017-10-17 14:11 | disposition home or self-care (01) ==
LOC: LAB.R 14:10
PROVIDERS: ATTEND Internal Medicine Infectious Disease
DX: M79.605 Pain in left leg (principal); L03.116 Cellulitis of left lower limb
CPT/HCPCS: 80048; 80202; 85025

== ENCOUNTER 2017-10-24 14:00 | Outpatient (CLI) | payer MEDICARE ==
[2017-10-24 16:32] LABS: BASOPHILS # (AUTO) 0.1 10^3/uL (0.0-0.1); EOSINOPHILS # (AUTO) 0.5 10^3/uL (0.0-0.7); EOSINOPHILS % (AUTO) 5.8 %; HGB - HEMOGLOBIN 13.5 g/dL (14.0-18.0); LYMPHOCYTES # (AUTO) 1.9 10^3/uL (1.5-3.5); LYMPHOCYTES % (AUTO) 21.5 %; MEAN CORPUSCULAR HEMOGLOBIN 28.3 pg (27.0-31.0); MEAN CORPUSCULAR HGB CONC 32.9 g/dL (32.0-36.0); MEAN CORPUSCULAR VOLUME 86.1 fL (80.0-94.0); MEAN PLATELET VOLUME 10.1 fL (7.4-11.4); MONOCYTES # (AUTO) 0.7 10^3/uL (0.0-1.0); MONOCYTES % (AUTO) 8.4 %; NEUTROPHILS # (AUTO) 5.6 10^3/uL (1.5-6.6); NEUTROPHILS % (AUTO) 63.3 %; PLT - PLATELET COUNT 198 10^3/uL (130-450); RED BLOOD COUNT 4.75 10^6/uL (4.70-6.10); RED CELL DISTRIBUTION WIDTH 15.7 % (12.0-15.0); WHITE BLOOD COUNT 8.8 x10^3/uL (4.8-10.8)
[2017-10-24 16:38] LABS: BUN - BLOOD UREA NITROGEN 21 mg/dL (6-20); CALCIUM 9.3 mg/dL (8.5-10.3); CARBON DIOXIDE - CO2 25 mmol/L (21-32); CHLORIDE 99 mmol/L (101-111); CREATININE 0.7 mg/dL (0.6-1.2); GFR - MDRD 111 (>89); GLUCOSE 130 mg/dL (70-100); SODIUM 135 mmol/L (135-145); VANCOMYCIN,TROUGH 4.2 ug/mL (10.0-20.0)
== END 2017-10-24 14:01 | disposition home or self-care (01) ==
LOC: LAB.R 14:00
PROVIDERS: ATTEND Internal Medicine Infectious Disease
DX: M79.605 Pain in left leg (principal); L03.116 Cellulitis of left lower limb
CPT/HCPCS: 80048; 80202; 85025

== ENCOUNTER 2017-12-19 06:24 | Outpatient (CLI) | payer MEDICARE | END 2017-12-19 06:25 | disposition short-term general hospital (02) | LOC: EMS 06:24 | PROVIDERS: ATTEND Surgery | DX: R06.02 Shortness of breath (principal); R53.1 Weakness | CPT/HCPCS: A0170; A0425; A0427 ==

== ENCOUNTER 2018-01-15 08:34 | Outpatient (CLI) | payer MEDICARE | END 2018-01-15 08:35 | disposition short-term general hospital (02) | LOC: EMS 08:34 | PROVIDERS: ATTEND Surgery | DX: R06.02 Shortness of breath (principal) | CPT/HCPCS: A0425; A0427 ==